=== PATIENT | male | born 1970 | race African-American/Black ===

== ENCOUNTER 2019-08-26 17:07 | Inpatient (IN) | payer OTHER, SELFPAY ==
[2019-08-26] VITALS (12 sets, daily range): BP systolic 93–113; BP diastolic 69–90; PULSE 96–140; RESP 16–24; TEMP 36.2–36.9; O2SAT 97–100; BMI 19.7
--- NOTE | ~2019-08-26 | CT_ITS ---
EXAMINATION: CT abdomen pelvis wo con DATE: 09/05/2019 13:51 INDICATION: Abdominal distention. TECHNIQUE: Computed tomography (CT) of the abdomen and pelvis was performed without intravenous contr ast. Automated exposure control and iterative reconstruction technique were employed. The dose-length product was 723.53 mGy-cm. COMPARISON: CT abdomen and pelvis 08/26/2019 FINDINGS: There are small pleural effusions. The visualized portions of the lung bases demonstrate de pendent atelectasis. The heart size is normal. There is a small pericardial effusion. The liver demon strates a nodular surface contour, consistent with cirrhosis. There is mild splenomegaly measuring 14 .0 cm, consistent with portal venous hypertension. There are gallstones in the gallbladder, which is normal in size. The pancreas, adrenal glands, and kidneys are normal. There are no dilated loops of b owel. The appendix is not visualized. There is a large volume of ascites. There are no pathologically enlarged lymph nodes. Body wall edema is noted. There is mild lumbar spondylosis. IMPRESSION: 1. Cirrhosis of the liver with portal venous hypertension. 2. Large volume of ascites. 3. Small pleural effusions. 4. Small pericardial effusion. 5. Cholelithiasis. Reviewed, dictated and finalized at location A.
--- NOTE | ~2019-08-26 | US_ITS ---
EXAMINATION: US paracentesis abd w/image DATE: 09/06/2019 12:20 INDICATION: Ascites. TECHNIQUE: The procedure and its risks, benefits, and alternatives were discussed with the patient. P otential risks discussed included bleeding and infection. The skin was prepped and draped in sterile fashion. 1% lidocaine was used for local anesthesia. Under ultrasound guidance, a 5 Fr catheter with trochar was advanced into the ascites in the left lower quadrant. Fluid was aspirated. The catheter w as removed, and a dressing was applied. There were no immediate complications. FINDINGS: Ultrasound images demonstrate ascites and the catheter within the fluid. IMPRESSION: 1. Successful ultrasound-guided paracentesis yielding 2900 mL of stephanie-colored fluid. Reviewed, dictated and finalized at location A. OR'S AIDE
--- NOTE | ~2019-08-26 | XR_ITS ---
EXAMINATION: XR chest 1V portable EXAM DATE: 08/26/2019 18:09 INDICATION: Weakness. No appetite. Symptoms one month. TECHNIQUE: Frontal portable AP chest x-ray. There is no prior study for comparison. FINDINGS: The lungs are clear. There are no pleural effusions. The cardiomediastinal silhouette is within normal limits. There is no pneumothorax suspected. The bones and soft tissues are unremarkab le. IMPRESSION: No acute cardiopulmonary findings. Reviewed, dictated and finalized at location A. CIATE SALES REPRESENTATIVE
--- NOTE | ~2019-08-26 | XR_ITS ---
EXAMINATION: XR chest 1V portable DATE: 09/03/2019 14:20 INDICATION: Leukocytosis. Unresponsive. TECHNIQUE: A single frontal view of the chest was obtained. COMPARISON: Chest single view 08/26/2019, CT abdomen and pelvis 08/26/2019 FINDINGS: Lung volumes are small. There are airspace opacities in the mid and lower lung zones, left worse than right. There is a small right pleural effusion. No pneumothorax. The heart size is normal. IMPRESSION: 1. Airspace opacities in the mid and lower lung zones, left worse than right, consistent with atelect asis versus pneumonia. 2. Small right pleural effusion. Reviewed, dictated and finalized at location A. OM FEED MILL OPERATOR IMPRESSION: 1. Airspace opacities in the mid and lower lung zones, left worse than right, c onsistent with atelectasis versus pneumonia. 2. Small right pleural effusion.
--- NOTE | ~2019-08-26 | CT_ITS ---
EXAMINATION: CT brain wo con EXAM DATE: 08/29/2019 12:46 INDICATION: Change in mental status. TECHNIQUE: Spiral CT of the head was performed without contrast. Axial, coronal and sagittal images were reviewed. The dose-length product (DLP) for this examination was 605.33 mGy-cm. The exposure w as tailored according to patient size, and iterative reconstruction (ASIR) was used as additional dos e reduction technique. There is no prior study for comparison. FINDINGS: There is mild cerebral atrophy. There is no acute intraparenchymal hemorrhage. No evidence of intraparenchymal brain mass lesion. No evidence of acute infarction. There is no mass effect or midline shift. The ventricles are normal in size. There are no extra-axial collections. There are no acute calvarial fractures. There is disconjugate gaze. Soft tissue is unremarkable. Right fronta l and frontal ethmoid completely opacified. IMPRESSION: 1. No acute intracranial findings. 2. Completely opacified right frontal and frontal ethmoid sinuses. Reviewed, dictated and finalized at location B. WAREHOUSE ANALYST
--- NOTE | ~2019-08-26 | XR_ITS ---
EXAMINATION: XR abdomen/kub 1V DATE: 09/02/2019 16:08 INDICATION: Abdominal distention. Hematuria. TECHNIQUE: A supine view of the abdomen on 2 radiographs was obtained. COMPARISON: CT abdomen and pelvis 08/26/2019 FINDINGS: There are multiple dilated loops of small bowel. There is regular fold thickening of the sm all bowel. The colon is normal in caliber. IMPRESSION: 1. Dilated small bowel, likely adynamic ileus. 2. Regular fold thickening of small bowel, consistent with interstitial edema. Reviewed, dictated and finalized at location A. ITURE MECHANIC
--- NOTE | ~2019-08-26 | CT_ITS ---
EXAMINATION: CT abdomen pelvis w con EXAM DATE: 08/26/2019 18:22 INDICATION: Hemoglobin anemia, generalized weakness. Loss of appetite. Jaundice. TECHNIQUE: Spiral CT of the abdomen and pelvis was performed following intravenous injection of 100 m L Omnipaque 350. Axial, coronal and sagittal images were reviewed. The dose-length product (DLP) fo r this examination was 244.86 mGy-cm. The exposure was tailored according to patient size (auto mA e xposure control), and iterative reconstruction (ASIR) was used as additional dose reduction technique . There is no prior study for comparison. FINDINGS: Heterogeneous liver with nodular contour, probably innumerable regenerating nodules, cirrho sis. Small amount of ascites and generalized mesenteric fat stranding, edema. The pancreas, adrenal g lands, spleen are unremarkable. There are gallstones within an otherwise unremarkable gallbladder. No evidence of obstructive biliary disease. Portal and splenic veins are patent. Kidneys enhance sy mmetrically. There is no hydronephrosis. The prostate is unremarkable. The bladder is unremarkabl e. Prominent urachal remnant, with nodule of peripherally calcified soft tissue density along most cepha lad portion measuring 1.0 x 1.2 x 2.3 cm; could be proteinaceous urachal cyst given the peripheral di stribution of calcification, but can't exclude urachal cancer given density. There is no retroperiton eal or pelvic lymphadenopathy. The appendix is not positively visualized. There is no pericecal inflammatory change to suggest appe ndicitis. The stomach and small bowel are unremarkable. There is expected amount of colonic stool. No free intraperitoneal gas. The heart is normal in size. There are no pericardial or pleural e ffusions. The lung bases are unremarkable. The bones are unremarkable. IMPRESSION: 1. Cirrhosis, ascites, mesenteric fat stranding. 2. Urachal remnant proteinaceous cyst or less likely soft tissue mass; consider 3-six-month follow-u p CT. 3. Cholelithiasis. Reviewed, dictated and finalized at location A. ATIENT PSYCHIATRIST IMPRESSION: 1. Cirrhosis, ascites, mesenteric fat stranding. 2. Urachal remnant proteinaceous cyst or less likely soft tissue mass; conside r 3-six-month follow-up CT. 3. Cholelithiasis.
--- NOTE | ~2019-08-26 | US_ITS ---
EXAMINATION: US paracentesis abd w/image DATE: 08/28/2019 11:11 INDICATION: Ascites. TECHNIQUE: The procedure and its risks, benefits, and alternatives were discussed with the patient. P otential risks discussed included bleeding and infection. The skin was prepped and draped in sterile fashion. 1% lidocaine was used for local anesthesia. Under ultrasound guidance, a 5 Fr catheter with trochar was advanced into the ascites in the right abdomen. Fluid was aspirated. The catheter was rem sigifredo, and a dressing was applied. There were no immediate complications. FINDINGS: Ultrasound images demonstrate ascites and the catheter within the fluid. IMPRESSION: 1. Successful ultrasound-guided paracentesis yielding 120 mL of stephanie-red fluid. Reviewed, dictated and finalized at location A. MOTIVE GLAZIER IMPRESSION: 1. Successful ultrasound-guided paracentesis yielding 120 mL of stephanie-red flui d.
--- NOTE | 2019-08-26 17:38 | ECG_ITS ---
Measurements Intervals [place] Rate: 128 P: 66 [place]: 131 QRS: 4 QRSD: 85 T: 55 QT: 299 QTc: 437 Interpretive Statements SINUS TACHYCARDIA BORDERLINE ST-T WAVE ABNORMALITY- INF/LAT LEADS ABNORMAL ECG Electronically Signed On 08-27-2019 6:48:53 THEATER COMPANY PRODUCER by Lamonte Gu D.O.
[2019-08-26 17:45] LABS: Basophils Absolute Auto 0.1 K/mm3 (0.0-0.1); Basophils Percent Auto 0.6 % (0.2-1.2); Eosinophils Absolute Auto 0.2 K/mm3 (0-0.3); Eosinophils Percent Auto 1.4 % (0-4.4); Immature Granulocyte Absolute 0.09 K/mm3 (0.00-0.031); Immature Granulocyte Percent A 0.8 % (0-0.5); Lymphocytes Absolute Auto 0.98 K/mm3 (0.9-3.2); Lymphocytes Percent Auto 8.3 % (18.3-44.2); Mean Corpuscular Hemoglobin 33.7 pg (26-34); Mean Corpuscular Volume 93.6 fl (80-100); Mean Platelet Volume 10.1 fl (7.4-10.4); Monocytes Absolute Auto 1.4 K/mm3 (0.1-0.6); Monocytes Percent Auto 11.7 % (2.6-8.5); Neutrophils Absolute Auto 9.2 K/mm3 (1.3-6.7); Neutrophils Percent Auto 77.2 % (45.5-73.1); Nucleated Red Blood Cells Perc 0.3 % (0.0-0.2); Platelet Count Result 186 k/mm3 (150-375); Red Blood Count 1.87 M/mm3 (4.6-6.20); Red Cell Distribution Width 15.9 % (11.5-14.5); White Blood Count 11.9 K/mm3 (4.5-10.0)
[2019-08-26 17:48] LABS: Hemoglobin 6.3 g/dL (14.0-18.0)
[2019-08-26 17:49] LABS: Hematocrit 17.5 % (42.0-52.0)
[2019-08-26 17:56] LABS: Alanine Aminotransferase 17 U/L (4-50); Albumin Level 3.5 g/dL (3.5-5.1); Alkaline Phosphatase 201 U/L (38-126); Aspartate Amino Transferase 96 U/L (17-59); Bilirubin,Total 6.5 mg/dL (0.2-1.3); Blood Urea Nitrogen 25 mg/dL (9-20); Calcium 8.8 mg/dL (8.4-10.2); Carbon Dioxide 27 mmol/L (22-30); Chloride 86 mmol/L (98-107); Estimated Glomerular Filt Rate > 60; Glucose 111 mg/dL (75-110); Lipase 1079 U/L (23-300); Potassium 3.2 mmol/L (3.4-5.0); Sodium 129 mmol/L (137-145)
[2019-08-26] MEDS: SODIUM CHLORIDE 0.9% IV 1,000 ML 999 ML IV CONT (17:56)
--- NOTE | 2019-08-26 18:02 | PC.NURSE ---
Patient unable to urinate at this time
[2019-08-26 18:28] LABS: Ammonia 25 umol/L (9-30)
[2019-08-26 18:28] LABS: Lactic Acid Reflex 2.6 mmol/L (0.7-2.1)
[2019-08-26 18:32] LABS: INR 1.2; Prothrombin Time 14.9 Seconds (11.1-14.7)
[2019-08-26 18:32] LABS: Ethanol < 10 mg/dL (<10)
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
[2019-08-26 18:33] LABS: Partial Thromboplastin Time 38.8 SECONDS (22.3-36.8)
[2019-08-26 18:34] LABS: Hepatitis B Surface Antigen Negative (Negative)
[2019-08-26 18:39] LABS: HAV RESULT Negative (Negative); Hepatitis B Core IgM Result Negative (Negative)
[2019-08-26 18:52] LABS: Hepatitis C Virus Antibody Reactive (Negative)
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
[2019-08-26 19:18] LABS: Add Urine Microscopic? YES; Appearance Urine Clear (Clear); Bilirubin Urine 2+ (Negative); Blood Urine Negative (Negative); Color Urine Amber (Yellow); Glucose Urine UA Negative (Negative); Ketones Urine Negative (Negative); Leukocyte Esterase Ur Trace LEU/UL (Negative); Mucus Urine Rare /lpf; Nitrate Urine Negative (Negative); Protein Urine Negative (Negative); RBC Urine 0-2 /hpf (0-2); Specific Grav Ur 1.041 (1.001-1.035); Squamous Epithelial Cell Urine Moderate /hpf (Few)
[2019-08-26 19:29] LABS: Amphetamine Screen Urine Negative (Negative); Barbiturate Screen Urine Negative (Negative); Benzodiazepines Screen Urine Negative (Negative); Cannabinoid Screen Urine Negative (Negative); Cocaine Screen Urine Negative (Negative); Methadone Screen Urine Negative (Negative); Opiate Screen Urine Negative (Negative); Phencyclidine Screen Urine Negative (Negative)
[2019-08-26 19:57] LABS: Immature Reticulocyte Fraction 6.4 % (3.0-15.9); Reticulocyte Hemoglobin Conten 30.7 pg (28.2-35.7); Reticulocyte Percent 0.51 % (0.7-4.3); Reticulocytes Absolute 0.01 B/L (32.2-175.7)
[2019-08-26] MEDS: PANTOPRAZOLE SODIUM IV 40 MG VIAL IV PUSH (19:58)
[2019-08-26 20:06] LABS: Iron 152 ug/dL (49-181)
--- NOTE | 2019-08-26 20:09 | PC.NURSE ---
call recieved from blood bank. states blood is ready. called imu- informed [address], states she will start the blood.
[2019-08-26 20:15] LABS: Percent Iron Saturation 74 % (20-50)
[2019-08-26 20:22] LABS: Lactic Acid Reflex 1.8 mmol/L (0.7-2.1)
--- NOTE | 2019-08-26 21:00 | PC.NURSE ---
This patient, Tonya Baumann, was admitted to IMU Room 212-01. Patient/family oriented to hospital policies and general routines including ID bracelet, bed and alarms, visiting hours, pain management, procedures, bathroom and other care routines, personal items, smoking policy, room service/diet, and visiting hours. Valuables list has been completed. Information on how to activate the Rapid Response Team has been discussed. Patient/Family are encouraged to report perceived risks to care and to ask questions if they do not understand what they are told or what they should do.
[2019-08-26 21:14] LABS: Folic Acid 5.3 ng/mL (2.76->20)
[2019-08-26 21:15] LABS: Reflex Lactic Acid Yes or No Add Lactic
[2019-08-26] MEDS: POTASSIUM CHLORIDE 20 MEQ PACKET (FOR LIQUID) PO (21:17)
[2019-08-26 21:33] LABS: Blood Urea Nitrogen 23 mg/dL (9-20); Calcium 8.2 mg/dL (8.4-10.2); Carbon Dioxide 25 mmol/L (22-30); Chloride 90 mmol/L (98-107); Estimated CRCL calculation 73 ml/min; Estimated Glomerular Filt Rate > 60; Glucose 101 mg/dL (75-110); Magnesium 1.3 mg/dL (1.6-2.3); Phosphorus 2.2 mg/dL (2.5-4.5); Potassium 3.8 mmol/L (3.4-5.0); Sodium 128 mmol/L (137-145)
[2019-08-26] MEDS: CHLORDIAZEPOXIDE 25 MG CAPSULE PO (21:55)
[2019-08-26] MEDS: SODIUM CHLORIDE 0.9% IV 250 ML 30 ML IV CONT (21:56)
[2019-08-27] VITALS (25 sets, daily range): BP systolic 78–112; BP diastolic 51–84; PULSE 92–117; RESP 16–20; TEMP 36.3–37.3; O2SAT 96–100
[2019-08-27] MEDS: MAGNESIUM SULF 2 GM/WATER 50ML 2 GM/50 ML BAG IVPB (00:43)
--- NOTE | 2019-08-27 03:16 | PC.NURSE ---
The 0310 blood vitals on 08/27/2019 were 30 minutes late because there was a code blue on the floor that I was involved in.
[2019-08-27 05:13] LABS: Hematocrit 25.3 % (42.0-52.0); Mean Corpuscular HGB Conc 35.6 g/dl (32-36); Mean Corpuscular Hemoglobin 32.6 pg (26-34); Mean Corpuscular Volume 91.7 fl (80-100); Mean Platelet Volume 10.2 fl (7.4-10.4); Platelet Count Result 152 k/mm3 (150-375); Red Blood Count 2.76 M/mm3 (4.6-6.20); Red Cell Distribution Width 15.3 % (11.5-14.5); White Blood Count 9.5 K/mm3 (4.5-10.0)
[2019-08-27 05:22] LABS: Alanine Aminotransferase 15 U/L (4-50); Albumin Level 3.1 g/dL (3.5-5.1); Alkaline Phosphatase 184 U/L (38-126); Aspartate Amino Transferase 95 U/L (17-59); Bilirubin,Total 6.1 mg/dL (0.2-1.3); Blood Urea Nitrogen 21 mg/dL (9-20); Calcium 8.2 mg/dL (8.4-10.2); Carbon Dioxide 23 mmol/L (22-30); Chloride 93 mmol/L (98-107); Estimated CRCL calculation 81 ml/min; Estimated Glomerular Filt Rate > 60; Glucose 85 mg/dL (75-110); Magnesium 2.3 mg/dL (1.6-2.3); Potassium 3.8 mmol/L (3.4-5.0); Sodium 130 mmol/L (137-145)
[2019-08-27] MEDS: CHLORDIAZEPOXIDE 25 MG CAPSULE PO ×3 (06:25→21:01)
[2019-08-27] MEDS: POTASSIUM PHOS,M-BASIC-D-BASIC 20 MMOL in SODIUM CHLORIDE 0.9% IV 250 ML 62.5 MMOL IVPB (07:52)
[2019-08-27] MEDS: FOLIC ACID 1 MG TABLET PO (08:01)
[2019-08-27] MEDS: THIAMINE HCL 100 MG TABLET PO (08:01)
[2019-08-27] MEDS: PANTOPRAZOLE SODIUM IV 40 MG VIAL IV PUSH ×2 (10:52→21:02)
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
--- NOTE | 2019-08-27 13:49 | WPDANESEPPF ---
Anes - Initial Pre Proc Eval Procedure: Operation Date: 08/27/19 14:30 Proposed Procedures p Esophagogastroduodenoscopy - Kimo Finn MD Date/Time: 08/27/19 13:49 Surgeon: Jesus Ellis MD Pre Op Diagnosis: Weakness. Patient Data Age: 48 Gender: M Height: 5 ft 7 in Weight: 60.8 kg Last Vital Signs Temp 99 F 08/27/19 12:00 Pulse 103 H 08/27/19 12:00 Resp 20 08/27/19 12:00 BP 96/68 L 08/27/19 12:00 Pulse Ox 100 08/27/19 12:00 Allergies Allergy/AdvReac Type Severity Reaction Status Date / Time No Known Allergies Allergy Verified 08/27/19 13:37 Home Medications Medication Instructions Recorded Confirmed Type No Home Medications 08/26/19 08/26/19 History Laboratory Tests 08/26/19 08/26/19 08/26/19 17:36 17:36 17:36 WBC RBC Hgb Hct MCV MCH MCHC RDW Plt Count MPV Immature Gran % (Auto) Neut % (Auto) Lymph % (Auto) Granite % (Auto) Eos % (Auto) Baso % (Auto) Lymph # (Auto) Granite # (Auto) Eos # (Auto) Baso # (Auto) Abs Immat Gran (auto) Absolute Neuts (auto) Absolute Nucleated RBC Nucleated RBC % Absolute Retic 0.01 B/L L B/L (32.2-175.7) Percent Retic 0.51 % L % (0.7-4.3) Immature Retic Fraction 6.4 % % (3.0-15.9) Retic Hgb Content 30.7 pg pg (28.2-35.7) PT 14.9 Seconds H Seconds (11.1-14.7) INR 1.2 APTT 38.8 SECONDS H SECONDS (22.3-36.8) Sodium Potassium Chloride Carbon Dioxide BUN Creatinine Estim Creat Clear Calc Estimated GFR Glucose Lactic Acid Calcium Phosphorus Magnesium Iron 152 ug/dL ug/dL (49-181) TIBC 205 ug/dL L ug/dL (265-497) % Saturation 74 % H % (20-50) Ferritin 846.00 ng/mL H ng/mL (17.9-464) Total Bilirubin AST ALT Alkaline Phosphatase Ammonia Total Protein Albumin Lipase Vitamin B12 Folate Urine Color Urine Appearance Urine pH Ur Specific [place] Urine Protein Urine Glucose (UA) Urine Ketones Ur Blood (Man) Urine Nitrate Urine Bilirubin Urine Urobilinogen Leukocyte Esterase Rfl Urine RBC Urine WBC Ur Squamous Epith Cells Urine Mucus Urine Opiates Screen Urine Methadone Screen Ur Barbiturates Screen Ur Phencyclidine Scrn Ur Amphetamine Screen U Benzodiazepines Scrn Urine Cocaine Screen U Cannabinoids Screen Ethyl Alcohol Hepatitis A IgM Ab Hep Bs Antigen Hep B Core IgM Ab Hepatitis C Ab Screen HCV RNA (PCR) IUs/ml HCV RNA PCR log IUs/ml Blood Type Antibody Screen Crossmatch 08/26/19 08/26/19 08/26/19 17:36 17:38 17:38 WBC 11.9 K/mm3 H K/mm3 (4.5-10.0) RBC 1.87 M/mm3 L M/mm3 (4.6-6.20) Hgb 6.3 g/dL L* g/dL (14.0-18.0) Hct 17.5 % L* % (42.0-52.0) MCV 93.6 fl fl (80-100) MCH 33.7 pg pg (26-34) MCHC 36.0 g/dl g/dl (32-36) RDW 15.9 % H % (11.5-14.5) Plt Count 186 k/mm3 k/mm3 (150-375) MPV 10.1 fl fl (7.4-10.4)
[2019-08-27] MEDS: LACTATED RINGERS 1,000 ML 150 ML IV CONT (14:20)
--- NOTE | 2019-08-27 15:55 | PM.IMPN ---
Progress Note: A&P Assessment and Plan (1) Profound anemia: Qualifiers: Anemia type: unspecified type Qualified Code(s): D64.9 - Anemia, unspecified Code(s): D64.9 - Anemia, unspecified Status: Acute Assessment and Plan: Anemia felt related to GI bleed from the Grade II varices and gastritis. Hgb 6.3 on admission but back up to 9 after transfusion of 2 units. Continue to monitor HH for stability. Continue PPI. (2) Cirrhosis: Code(s): K74.60 - Unspecified cirrhosis of liver Status: Acute Assessment and Plan: Patient with cirrhosis and varices as mentioned above. Octrotide to be started. Paracentesis ordered as well. (3) Electrolyte abnormality: Code(s): E87.8 - Other disorders of electrolyte and fluid balance, not elsewhere classified Status: Acute Assessment and Plan: Patient with hyponatremia that is slightly better today at 130. Potassium and Mag normal but Phos low at 2.0. Will repalce. Continue to monitor and replace as needed. (4) Elevated lactic acid level: Code(s): R79.89 - Other specified abnormal findings of blood chemistry Status: Acute Assessment and Plan: Lactic acid 2.6 but normal on repeat. Likely related to his cirrhosis. (5) Alcoholism: Code(s): F10.20 - Alcohol dependence, uncomplicated Status: Acute Assessment and Plan: Abstaining from alcohol use is a must. He has been educated about the need to quit drinking. Continue Librium, Thiamine and Folate. Continue CIWA protocol. Care coordination to provide information about AA. Subjective Date/time seen: 08/27/19 15:55 Interval history: 48yo male with alcoholic cirrhosis here weakness and found to be anemic. Patient feels better. No nausea or vomiting. No constipation or diarrhea. No headache. No CP or palpitations. Tolerating diet post EGD. has some mild epigastric pain after the procedure. Hasn't been out of bed yet. Exam Narrative: Exam Narrative: Gen - thin male in NARD Chest - distant but clear BS, nml RR CV - RRR S1/S2, Tele showing sinus arrhythmias Abd - soft, protubernt and dull to percussion, +BS Ext - no pedal edema, 2+ DP bilater Psych - alert and appropriate. Skin - dry; peeling and scale noted bilat feet Objective Data Vital Signs Vital Signs: Vital Signs - 24 hr 08/26/19 17:22 08/26/19 17:35 08/26/19 17:57 Temperature 98.5 F Pulse Rate 140 H 129 H 111 H Pulse Rate [Bilateral Monitor] Respiratory Rate 24 H 16 19 Blood Pressure 99/69 L 110/86 100/71 Pulse Oximetry 100 99 100 08/26/19 18:49 08/26/19 19:44 08/26/19 20:00 Temperature Pulse Rate 114 H 96 96 Pulse Rate [Bilateral Monitor] 103 H Respiratory Rate 21 H 20 Blood Pressure 113/83 110/90 Pulse Oximetry 99 99 08/26/19 20:04 08/26/19 20:15 08/26/19 22:00 Temperature 97.1 F L Pulse Rate 99 103 H 105 H Pulse Rate [Bilateral Monitor] Respiratory Rate 20 18 Blood Pressure 113/81 104/73 Pulse Oximetry 99 100 08/26/19 22:09 08/26/19 22:24 08/26/19 23:24 Temperature 98.1 F 97.8 F 98.3 F Pulse Rate 106 H 105 H 108 H Pulse Rate [Bilateral Monitor] Respiratory Rate 20 18 20 Blood Pressure 107/74 102/72 93/70 L Pulse Oximetry 97 99 100 08/27/19 00:00 08/27/19 00:22 08/27/19 00:24 Temperature 98.4 F 98.4 F Pulse Rate 116 H 106 H 106 H Pulse Rate [Bilateral Monitor] 106 H Respiratory Rate 18 18 Blood Pressure 94/68 L 94/68 L 94/68 L Pulse Oximetry 100 100 08/27/19 01:01 08/27/19 01:25 08/27/19 01:41 Temperature 98.4 F 99 F 98.4 F Pulse Rate 103 H 106 H 108 H Pulse Rate [Bilateral Monitor] Respiratory Rate 18 20 20 Blood Pressure 102/74 104/73 94/71 L Pulse Oximetry 100 100 100 08/27/19 02:00 08/27/19 03:10 08/27/19 03:37 Temperature 98.2 F 98.5 F Pulse Rate 105 H 108 H 108 H Pulse Rate [Bilateral Monitor] Respiratory Rate 18 20 Blood Pressure 102/84 95/73 L
[2019-08-28] VITALS (14 sets, daily range): BP systolic 103–125; BP diastolic 47–81; PULSE 94–124; RESP 16–24; TEMP 36.4–36.9; O2SAT 97–100
[2019-08-28] MEDS: LORAZEPAM INJ 2 MG/ML VIAL 1 MG IV PUSH ×4 (00:39→06:10)
[2019-08-28] MEDS: CHLORDIAZEPOXIDE 25 MG CAPSULE 100 MG PO (04:17)
[2019-08-28 06:25] LABS: Hematocrit 24.3 % (42.0-52.0); Hemoglobin 8.7 g/dL (14.0-18.0); Mean Corpuscular HGB Conc 35.8 g/dl (32-36); Mean Corpuscular Hemoglobin 32.3 pg (26-34); Mean Corpuscular Volume 90.3 fl (80-100); Mean Platelet Volume 10.6 fl (7.4-10.4); Platelet Count Result 150 k/mm3 (150-375); Red Blood Count 2.69 M/mm3 (4.6-6.20); Red Cell Distribution Width 16.1 % (11.5-14.5); White Blood Count 8.2 K/mm3 (4.5-10.0)
[2019-08-28 06:47] LABS: Albumin Level 2.9 g/dL (3.5-5.1); Blood Urea Nitrogen 14 mg/dL (9-20); Calcium 8.1 mg/dL (8.4-10.2); Carbon Dioxide 21 mmol/L (22-30); Chloride 93 mmol/L (98-107); Estimated CRCL calculation 116 ml/min; Estimated Glomerular Filt Rate > 60; Glucose 113 mg/dL (75-110); Magnesium 1.7 mg/dL (1.6-2.3); Phosphorus 2.6 mg/dL (2.5-4.5); Potassium 3.6 mmol/L (3.4-5.0); Sodium 128 mmol/L (137-145)
[2019-08-28] MEDS: PANTOPRAZOLE SODIUM IV 40 MG VIAL IV PUSH ×2 (09:11→20:56)
--- NOTE | 2019-08-28 10:32 | PM.IMPN ---
Progress Note: A&P Assessment and Plan (1) Profound anemia: Qualifiers: Anemia type: unspecified type Qualified Code(s): D64.9 - Anemia, unspecified Code(s): D64.9 - Anemia, unspecified Status: Acute Assessment and Plan: Anemia felt to be related to GI bleed from the Grade II varices and gastritisAs seen on EGD on 08/27/2019. Hgb 6.3 on admission but increased to 9.0 after transfusion of 2 units. Hemoglobin stable at 8.7 today. Will continue to monitor H&H. (2) Esophageal varices in cirrhosis: Code(s): K74.60 - Unspecified cirrhosis of liver; I85.10 - Secondary esophageal varices without bleeding Status: Acute Assessment and Plan: EGD on 08/27/2019 as noted above. Appreciate help from GI. Remains on octreotide. Will continue to monitor. (3) Cirrhosis: Qualifiers: Ascites presence: with ascites Hepatic cirrhosis type: alcoholic cirrhosis Qualified Code(s): K70.31 - Alcoholic cirrhosis of liver with ascites Code(s): K74.60 - Unspecified cirrhosis of liver Status: Acute Assessment and Plan: Result of alcoholism. GI following as noted above. Plan for paracentesis today. Will continue vitamin and folic acid. Resume Librium but at lower dose. Can hold Librium if too drowsy. Paracentesis with removal of only 120mL today. (4) Alcoholism: Code(s): F10.20 - Alcohol dependence, uncomplicated Status: Acute Assessment and Plan: Continue CIWA protocol. will rediscuss abstinence when more awake. Continue thiamine and folic acid as noted. Librium at lower dose. (5) Acute hypokalemia: Code(s): E87.6 - Hypokalemia Status: Acute Assessment and Plan: Resolved with potassium 3.6 today. Will follow. Telemetry reviewed on 08/28/2019 with mild sinus tachycardia. (6) Hyponatremia: Code(s): E87.1 - Hypo-osmolality and hyponatremia Status: Acute Assessment and Plan: Sodium stable at 128. Will follow. (7) Hypomagnesemia: Code(s): E83.42 - Hypomagnesemia Status: Acute Assessment and Plan: Magnesium 1.7 today. Will continue to follow and replace as needed. (8) Elevated lactic acid level: Code(s): R79.89 - Other specified abnormal findings of blood chemistry Status: Acute Assessment and Plan: Lactic acid 2.6 on admission but normal on repeat. Likely related to his cirrhosis. Will not continue to follow. (9) DVT prophylaxis: Code(s): Z29.9 - Encounter for prophylactic measures, unspecified Status: Acute Assessment and Plan: SCDs. Time Spent With Patient Time with patient: 15 - 25 minutes Subjective Date/time seen: 08/28/19 10:32 Interval history: Date of Service: 08/28/2019. Admitted with weakness and found to have anemia. Known alcoholic cirrhosis. Patient drowsy this morning but was given large dose Librium overnight due to increased CIWA. He will advised. Is able to answer my questions. Denies shortness of breath. No chest pain. No abdominal pain. Able to answer orientation questions appropriately this morning. Review of Systems Constitutional: Constitutional: Denies chills and Denies fever(s) ENT: Denies dysphagia Cardiovascular: Cardiovascular: Denies chest pain Respiratory: Respiratory: Denies dyspnea Gastrointestinal: Gastrointestinal: Denies abdominal pain, Denies nausea and Denies vomiting Musculoskeletal: Musculoskeletal: Reports no additional musculoskeletal complaints Integumentary/Breasts: Skin/Breast: Denies rash Neurologic: Denies headache(s) Psychiatric: Psychiatric: Denies confusion Exam Narrative: Exam Narrative: Drowsy but can be awakened and answer questions. Const: General: no acute distress HENMT: Other: unable to assess this morning Neck: Neck: supple Lymphatic: lymphadenopathy not noted Resp: Auscultation: no rales, no wheezes and diminished lung sounds Cardio:
[2019-08-28 13:26] LABS: Appearance Peritoneal Fluid Hazy (Clear); Color Peritoneal Fluid Other (Colorless); Nucleated Cells Peritoneal Flu 315 /uL (0-500); RBC Peritoneal Fluid 12833 /uL (0-100000); Source Peritoneal Fluid Peritoneal Fluid
[2019-08-28 13:50] LABS: Lymphocytes Peritoneal Fluid 21 %; Macrophages Peritoneal Fluid 8 %; Mesothelial Cells Peritoneal Fluid 3 %; Monocytes Peritoneal Fluid 56 %; Neutrophils Peritoneal Fluid 12 % (0-25)
[2019-08-28] MEDS: MICONAZOLE NITRATE 2% CREAM 30 GM TUBE 1 APPLIC TOPICAL ×2 (14:23→20:57)
--- NOTE | 2019-08-28 16:27 | WPDGIPROGNO ---
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 Complete another day of iv octreotide, also on iv antibiotics. Will need another EGD in ~ 6 weeks to reassess. (2) Ascites due to alcoholic cirrhosis: Code(s): K70.31 - Alcoholic cirrhosis of liver with ascites Status: Acute Assessment and Plan: no evidence of SBP. (3) Cirrhosis: Qualifiers: Ascites presence: with ascites Hepatic cirrhosis type: alcoholic cirrhosis Qualified Code(s): K70.31 - Alcoholic cirrhosis of liver with ascites Code(s): K74.60 - Unspecified cirrhosis of liver Status: Acute Assessment and Plan: poor prognosis. (4) Malnutrition: Qualifiers: Malnutrition type: protein-calorie malnutrition Protein-calorie malnutrition severity: moderate Qualified Code(s): E44.0 - Moderate protein-calorie malnutrition Code(s): E46 - Unspecified protein-calorie malnutrition Status: Acute Assessment and Plan: encourage to eat, he is at high risk of DT's, on CIWA protocol. (5) Acute GI bleeding: Code(s): K92.2 - Gastrointestinal hemorrhage, unspecified Status: Acute (6) Acute alcoholic hepatitis: Code(s): K70.10 - Alcoholic hepatitis without ascites Status: Acute (7) Alcoholism: Code(s): F10.20 - Alcohol dependence, uncomplicated Status: Acute Assessment and Plan: mvi, nutrition support, thiamine Subjective Date/time seen: 08/28/19 16:27 Interval history: had diagnostic paracentesis ~ 120ml removed, no report of bleeding and hb stable after blood transfusion. He is confused. Review of Systems Review of Systems: All systems reviewed & are unremarkable except as noted in HPI and below Exam Const: General: no acute distress Other: chronically ill appearing, thin, confused HENMT: General nose exam: Normal nares present Other: dry mucus membranes Eyes: EOM: EOMs intact bilaterally Neck: Neck: supple Resp: Auscultation: clear to auscultation bilaterally Cardio: Rate: regular rate GI: GI Palp: No Tenderness to palpation present (GI) Auscultation: normal bowel sounds Skin: General skin exam: pallor Neuro: Cognition (Neuro): abnormal cognition Other: confused Psych: Affect: Anxious affect present Objective Data Vital Signs Vital Signs: Vital Signs - 24 hr 08/27/19 18:00 08/27/19 20:00 08/27/19 20:17 Temperature 97.4 F L Pulse Rate 99 105 H 100 Pulse Rate [Bilateral Monitor] 100 Respiratory Rate 18 Blood Pressure 100/72 100/72 Pulse Oximetry 100 08/27/19 22:00 08/27/19 23:38 08/28/19 00:00 Temperature 99.2 F Pulse Rate 98 94 97 Pulse Rate [Bilateral Monitor] 94 Respiratory Rate 18 Blood Pressure 103/70 103/70 Pulse Oximetry 99 08/28/19 02:00 08/28/19 03:44 08/28/19 04:00 Temperature 98.5 F Pulse Rate 103 H 115 H 109 H Pulse Rate [Bilateral Monitor] 112 H Respiratory Rate 20 Blood Pressure 110/76 110/76 Pulse Oximetry 100 08/28/19 06:00 08/28/19 08:00 08/28/19 10:00 Temperature 98 F Pulse Rate 102 H 97 110 H Pulse Rate [Bilateral Monitor] 109 H Respiratory Rate 18 Blood Pressure 110/75 118/81 Pulse Oximetry 100 08/28/19 12:00 08/28/19 14:00 Temperature 97.5 F L Pulse Rate 101 H 102 H Pulse Rate [Bilateral Monitor] Respiratory Rate 16 Blood Pressure Pulse Oximetry Intake/Output Intake/Output: Intake & Output 08/25/19 08/26/19 08/27/19 08/28/19 23:59 23:59 23:59 23:59 Intake Total 1000 2515.8667 200 Output Total 650 220 Balance 1000 1865.8667 -20 Meds/Results Medications: Active Medications Generic Name Dose Route Start Last Admin Trade Name Freq PRN Reason Stop Dose Admin Chlordiazepoxide HCl 50 mg
[2019-08-29] VITALS (13 sets, daily range): BP systolic 89–122; BP diastolic 57–93; PULSE 100–118; RESP 18–20; TEMP 36.7–37.2; O2SAT 97–100
[2019-08-29] MEDS: CHLORDIAZEPOXIDE 25 MG CAPSULE 50 MG PO ×2 (01:12→21:29)
[2019-08-29 04:53] LABS: Hematocrit 24.6 % (42.0-52.0); Hemoglobin 8.9 g/dL (14.0-18.0); Mean Corpuscular HGB Conc 36.2 g/dl (32-36); Mean Corpuscular Hemoglobin 32.5 pg (26-34); Mean Corpuscular Volume 89.8 fl (80-100); Mean Platelet Volume 10.2 fl (7.4-10.4); Platelet Count Result 184 k/mm3 (150-375); Red Blood Count 2.74 M/mm3 (4.6-6.20); Red Cell Distribution Width 15.8 % (11.5-14.5); White Blood Count 8.6 K/mm3 (4.5-10.0)
[2019-08-29 05:08] LABS: Blood Urea Nitrogen 11 mg/dL (9-20); Calcium 8.3 mg/dL (8.4-10.2); Carbon Dioxide 25 mmol/L (22-30); Chloride 94 mmol/L (98-107); Estimated CRCL calculation 88 ml/min; Estimated Glomerular Filt Rate > 60; Glucose 99 mg/dL (75-110); Magnesium 1.4 mg/dL (1.6-2.3); Potassium 3.8 mmol/L (3.4-5.0); Sodium 131 mmol/L (137-145)
[2019-08-29] MEDS: THIAMINE HCL 100 MG TABLET PO (09:08)
[2019-08-29] MEDS: PANTOPRAZOLE SODIUM IV 40 MG VIAL IV PUSH ×2 (09:08→21:29)
[2019-08-29] MEDS: FOLIC ACID 1 MG TABLET PO (09:09)
[2019-08-29] MEDS: MICONAZOLE NITRATE 2% CREAM 30 GM TUBE 1 APPLIC TOPICAL ×2 (09:10→21:29)
[2019-08-29] MEDS: MAGNESIUM SULF 2 GM/WATER 50ML 2 GM/50 ML BAG IVPB (09:13)
--- NOTE | 2019-08-29 12:09 | PM.IMPN ---
Progress Note: A&P Assessment and Plan (1) Altered mental status: Qualifiers: Altered mental status type: unspecified Qualified Code(s): R41.82 - Altered mental status, unspecified Code(s): R41.82 - Altered mental status, unspecified Status: Acute Assessment and Plan: Remains drowsy today. Does Librium last dose given at 1:12 a.m. this morning. None since. Most likely changes are result alcohol will check CT brain with contrast to ensure no other issue. Patient is otherwise stable. Will transfer to medical floor. (2) Profound anemia: Qualifiers: Anemia type: unspecified type Qualified Code(s): D64.9 - Anemia, unspecified Code(s): D64.9 - Anemia, unspecified Status: Acute Assessment and Plan: Anemia felt to be related to GI bleed from the Grade II varices and gastritisAs seen on EGD on 08/27/2019. Hgb 6.3 on admission but increased to 9.0 after transfusion of 2 units. Hemoglobin stable at 8.9 today. Will continue to monitor H&H while here. (3) Esophageal varices in cirrhosis: Code(s): K74.60 - Unspecified cirrhosis of liver; I85.10 - Secondary esophageal varices without bleeding Status: Acute Assessment and Plan: EGD on 08/27/2019 as noted above. Appreciate help from GI. Octreotide to be discontinued after completing current bag. Continue IV Protonix. Will continue to monitor. (4) Cirrhosis: Qualifiers: Hepatic cirrhosis type: alcoholic cirrhosis Ascites presence: with ascites Qualified Code(s): K70.31 - Alcoholic cirrhosis of liver with ascites Code(s): K74.60 - Unspecified cirrhosis of liver Status: Acute Assessment and Plan: Result of alcoholism. GI following as noted above. Paracentesis with removal of only 120mL on 08/28/2019. Will continue vitamin and folic acid. Librium is scheduled but doses have been held due to drowsiness. Continue to monitor. (5) Alcoholism: Code(s): F10.20 - Alcohol dependence, uncomplicated Status: Acute Assessment and Plan: Continue CIWA protocol. Will rediscuss abstinence when more awake. Continue thiamine and folic acid as noted. Librium at lower dose when needed. (6) Hypomagnesemia: Code(s): E83.42 - Hypomagnesemia Status: Acute Assessment and Plan: Magnesium 1.4 today. IV replacement given. Will continue to follow and replace as needed. (7) Acute hypokalemia: Code(s): E87.6 - Hypokalemia Status: Acute Assessment and Plan: Resolved. Potassium stable at 3.8 today. Telemetry reviewed on 08/29/2019 with mild sinus tachycardia. Will continue to monitor potassium level and replace as needed. (8) Hyponatremia: Code(s): E87.1 - Hypo-osmolality and hyponatremia Status: Acute Assessment and Plan: Sodium slightly better at 1:31 a.m. today. Will continue to follow. (9) Elevated lactic acid level: Code(s): R79.89 - Other specified abnormal findings of blood chemistry Status: Acute Assessment and Plan: Lactic acid 2.6 on admission but normal on repeat. Likely related to his cirrhosis. Will not continue to follow. (10) DVT prophylaxis: Code(s): Z29.9 - Encounter for prophylactic measures, unspecified Status: Acute Assessment and Plan: SCDs. Time Spent With Patient Time with patient: 15 - 25 minutes Subjective Date/time seen: 08/29/19 12:09 Interval history: Date of Service: 08/29/2019. Admitted with weakness and found to have anemia. Known alcoholic cirrhosis. Patient drowsy again this morning. Will not say much to me. Nursing has noticed he favors staying in the position. He will eventually removed after I talked to him enough. He does mumble but cannot answer ROS questions. Review of Systems Review of Systems: ROS unobtainable: unobtainable due to mental status Exam Narrative: Exam Narrative: Difficult to arouse toda
--- NOTE | 2019-08-29 13:57 | PCOTNOTE ---
Attempted to see patient this pm, however unable to arouse for functional OT at this time. Pt attempted to wash face, however unable to stay awake.
--- NOTE | 2019-08-29 15:09 | WPDGIPROGNO ---
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 Ok to stop octreotide today, stable hb after blood transfusion. (2) Ascites due to alcoholic cirrhosis: Code(s): K70.31 - Alcoholic cirrhosis of liver with ascites Status: Acute Assessment and Plan: no evidence of SBP. (3) Cirrhosis: Qualifiers: Ascites presence: with ascites Hepatic cirrhosis type: alcoholic cirrhosis Qualified Code(s): K70.31 - Alcoholic cirrhosis of liver with ascites Code(s): K74.60 - Unspecified cirrhosis of liver Status: Acute Assessment and Plan: ETOH use, also pending HCV RNA. Poor prognosis. (4) Malnutrition: Qualifiers: Malnutrition type: protein-calorie malnutrition Protein-calorie malnutrition severity: moderate Qualified Code(s): E44.0 - Moderate protein-calorie malnutrition Code(s): E46 - Unspecified protein-calorie malnutrition Status: Acute Assessment and Plan: encourage to eat, he is at high risk of DT's, on CIWA protocol. (5) Acute GI bleeding: Code(s): K92.2 - Gastrointestinal hemorrhage, unspecified Status: Acute (6) Acute alcoholic hepatitis: Code(s): K70.10 - Alcoholic hepatitis without ascites Status: Acute Assessment and Plan: labs in am, supportive care. Poor prognosis. (7) Alcoholism: Code(s): F10.20 - Alcohol dependence, uncomplicated Status: Acute Assessment and Plan: mvi, nutrition support, thiamine (8) Encephalopathy: Code(s): G93.40 - Encephalopathy, unspecified Status: Acute Assessment and Plan: more sleepy, not eating. Could be from etoh abuse, his ammonia level was normal but he still could have liver encephalopathy- will give a trial of xifaxan. Continue with thiamine. Subjective Date/time seen: 08/29/19 15:09 Interval history: still drowsy, CT head ordered and now major findings. He is hardly eating, no GIB, stable hb Review of Systems Review of Systems: ROS unobtainable: unobtainable due to mental status Exam Const: General: no acute distress Other: chronically ill appearing, thin, sleeping and drowsy HENMT: General nose exam: Normal nares present Other: dry mucus membranes Eyes: EOM: EOMs intact bilaterally Neck: Neck: supple Resp: Auscultation: clear to auscultation bilaterally Cardio: Rate: regular rate GI: GI Palp: No Tenderness to palpation present (GI) Auscultation: normal bowel sounds Skin: General skin exam: no erythema and pallor Neuro: Cognition (Neuro): abnormal cognition Other: confused Extrem: General: normal to inspection Psych: Other: sleepy Objective Data Vital Signs Vital Signs: Vital Signs - 24 hr 08/28/19 16:00 08/28/19 18:00 08/28/19 20:00 Temperature 98.1 F 98.0 F Pulse Rate 119 H 122 H 124 H Pulse Rate [Bilateral Monitor] 124 H Respiratory Rate 24 H 18 Blood Pressure 114/73 125/47 L Pulse Oximetry 100 97 08/28/19 22:00 08/28/19 23:47 08/29/19 00:00 Temperature 98.2 F Pulse Rate 114 H 114 H 118 H Pulse Rate [Bilateral Monitor] 118 H Respiratory Rate 18 18 Blood Pressure 111/74 111/74 Pulse Oximetry 99 99 08/29/19 01:51 08/29/19 03:39 08/29/19 03:57 Temperature 98.1 F Pulse Rate 116 H 111 H 112 H Pulse Rate [Bilateral Monitor] 112 H Respiratory Rate 18 18 Blood Pressure 107/73 107/73 Pulse Oximetry 100 100 08/29/19 06:00 08/29/19 08:00 08/29/19 08:30 Temperature 98.1 F Pulse Rate 104 H 114 H 103 H Pulse Rate [Bilateral Monitor] Respiratory Rate 20 Blood Pressure 122/93 H Pulse Oximetry 100 08/29/19 10:00 08/29/19 12:00 Temperature 98.2 F Pulse Rate 117 H 105 H Pulse Rate [Bilateral Monitor] Respiratory Rate 18 Blood Pressur
[2019-08-29] MEDS: SODIUM CHLORIDE 0.9% IV 1,000 ML 999 ML IV CONT (17:19)
[2019-08-29] MEDS: rifAXIMin 550 MG TABLET PO (21:29)
[2019-08-30 03:54] VITALS: BP 102/70; PULSE 112
[2019-08-30 04:14] VITALS: BP 102/70; PULSE 112; RESP 18; TEMP 37.6; O2SAT 97
[2019-08-30 05:01] LABS: Hematocrit 22.6 % (42.0-52.0); Mean Corpuscular HGB Conc 35.4 g/dl (32-36); Mean Corpuscular Volume 90.4 fl (80-100); Mean Platelet Volume 9.9 fl (7.4-10.4); Platelet Count Result 180 k/mm3 (150-375); Red Cell Distribution Width 15.9 % (11.5-14.5); White Blood Count 7.7 K/mm3 (4.5-10.0)
[2019-08-30 05:21] LABS: Alanine Aminotransferase 18 U/L (4-50); Albumin Level 2.5 g/dL (3.5-5.1); Alkaline Phosphatase 144 U/L (38-126); Aspartate Amino Transferase 93 U/L (17-59); Bilirubin,Total 5.5 mg/dL (0.2-1.3); Blood Urea Nitrogen 9 mg/dL (9-20); Carbon Dioxide 24 mmol/L (22-30); Chloride 94 mmol/L (98-107); Estimated CRCL calculation 100 ml/min; Estimated Glomerular Filt Rate > 60; Glucose 101 mg/dL (75-110); Magnesium 1.5 mg/dL (1.6-2.3); Potassium 3.4 mmol/L (3.4-5.0); Sodium 129 mmol/L (137-145)
[2019-08-30] MEDS: MAGNESIUM SULF 4 GM/WATER100ML 4 GM/100 ML BAG IVPB (07:52)
[2019-08-30] MEDS: PANTOPRAZOLE SODIUM IV 40 MG VIAL IV PUSH ×2 (07:52→21:27)
[2019-08-30] MEDS: THIAMINE HCL 200 MG/2 ML VIAL 100 MG IV PUSH (07:52)
[2019-08-30] MEDS: MICONAZOLE NITRATE 2% CREAM 30 GM TUBE 1 APPLIC TOPICAL ×2 (07:53→21:27)
[2019-08-30 08:00] VITALS: BP 93/59; PULSE 105; RESP 16; TEMP 37.4; O2SAT 100
[2019-08-30] MEDS: FOLIC ACID 1 MG TABLET PO (09:58)
[2019-08-30] MEDS: rifAXIMin 550 MG TABLET PO ×2 (09:58→21:27)
--- NOTE | 2019-08-30 12:51 | PCOTNOTE ---
The patient treatment was not able to be completed on [08/30/18]. Will plan to continue treatment per plan of care.
--- NOTE | 2019-08-30 13:09 | PM.IMPN ---
Progress Note: A&P Assessment and Plan (1) Altered mental status: Qualifiers: Altered mental status type: somnolence Qualified Code(s): R40.0 - Somnolence Code(s): R41.82 - Altered mental status, unspecified Status: Acute Assessment and Plan: More responsive today. Only receiving occasional Librium as needed. CT brain 08/29/2019 with no acute changes. Most likely result of his alcoholism. Encourage patient to move more. Continue PT/OT. Will continue to monitor. (2) Profound anemia: Qualifiers: Anemia type: unspecified type Qualified Code(s): D64.9 - Anemia, unspecified Code(s): D64.9 - Anemia, unspecified Status: Acute Assessment and Plan: Anemia felt to be related to GI bleed from the Grade II varices and gastritisAs seen on EGD on 08/27/2019. Hgb 6.3 on admission but increased to 9.0 after transfusion of 2 units. Hemoglobin lower today at 8.0. Will not transfuse today. Will to monitor. Transfuse as needed. (3) Esophageal varices in cirrhosis: Code(s): K74.60 - Unspecified cirrhosis of liver; I85.10 - Secondary esophageal varices without bleeding Status: Acute Assessment and Plan: EGD on 08/27/2019 as noted above. Appreciate help from GI. Octreotide discontinued on 08/29/2019. Will continue IV Protonix. Will continue to monitor. Currently remains on full liquid diet. Will add Ensure compact to help with intake. Remains on IV ceftriaxone started by GI on 08/27/2019. (4) Cirrhosis: Qualifiers: Hepatic cirrhosis type: alcoholic cirrhosis Ascites presence: with ascites Qualified Code(s): K70.31 - Alcoholic cirrhosis of liver with ascites Code(s): K74.60 - Unspecified cirrhosis of liver Status: Acute Assessment and Plan: Result of alcoholism. GI following as noted above. Paracentesis with removal of only 120mL on 08/28/2019. Will continue vitamin and folic acid. Librium only as needed at this point. (5) Alcoholism: Code(s): F10.20 - Alcohol dependence, uncomplicated Status: Acute Assessment and Plan: Will discontinue CIWA protocol as levels have not been elevated recently. Librium only as needed at this point. Continue thiamine and folic acid.. Will rediscuss abstinence when more awake. (6) Hypomagnesemia: Code(s): E83.42 - Hypomagnesemia Status: Acute Assessment and Plan: Magnesium still low at 1.5 today. Additional IV replacement given today. Will continue to follow and replace as needed. (7) Acute hypokalemia: Code(s): E87.6 - Hypokalemia Status: Acute Assessment and Plan: Potassium down to 3.4 today. Will give IV replacement as oral intake good. Will continue to monitor. (8) Hyponatremia: Code(s): E87.1 - Hypo-osmolality and hyponatremia Status: Acute Assessment and Plan: Sodium 129 today. Staying fairly stable. Will continue to follow. (9) Poor dentition: Code(s): K08.9 - Disorder of teeth and supporting structures, unspecified Status: Acute Assessment and Plan: Noted to have from molars patient having very poor dentition. Will need appropriate dental care after discharge. (10) Elevated lactic acid level: Code(s): R79.89 - Other specified abnormal findings of blood chemistry Status: Acute Assessment and Plan: Lactic acid 2.6 on admission but normal on repeat. Likely related to his cirrhosis. Will not continue to follow. (11) DVT prophylaxis: Code(s): Z29.9 - Encounter for prophylactic measures, unspecified Status: Acute Assessment and Plan: SCDs. Time Spent With Patient Time with patient: 15 - 25 minutes Subjective Date/time seen: 08/30/19 13:09 Interval history: Date of Service: 08/30/2019. Admitted with weakness and found to have anemia. Known alcoholic cirrhosis. Still drowsy but more responsive today. Attempts to open h
[2019-08-30 16:00] VITALS: BP 88/60; PULSE 100; RESP 20; TEMP 36.6; O2SAT 100
--- NOTE | 2019-08-30 16:21 | WPDGIPROGNO ---
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 s/p IV octreotide, stable hb after blood transfusion. on iv antibiotics but can switch to oral, give total of 7 days (sbp prophylaxis in setting of gib) (2) Ascites due to alcoholic cirrhosis: Code(s): K70.31 - Alcoholic cirrhosis of liver with ascites Status: Acute Assessment and Plan: no evidence of SBP. 2g na diet still poor appetite, encourage to eat and also offer ensure/boost (3) Cirrhosis: Qualifiers: Ascites presence: with ascites Hepatic cirrhosis type: alcoholic cirrhosis Qualified Code(s): K70.31 - Alcoholic cirrhosis of liver with ascites Code(s): K74.60 - Unspecified cirrhosis of liver Status: Acute Assessment and Plan: ETOH use, also pending HCV RNA. Poor prognosis. (4) Malnutrition: Qualifiers: Malnutrition type: protein-calorie malnutrition Protein-calorie malnutrition severity: moderate Qualified Code(s): E44.0 - Moderate protein-calorie malnutrition Code(s): E46 - Unspecified protein-calorie malnutrition Status: Acute Assessment and Plan: encourage to eat. (5) Acute GI bleeding: Code(s): K92.2 - Gastrointestinal hemorrhage, unspecified Status: Acute (6) Acute alcoholic hepatitis: Code(s): K70.10 - Alcoholic hepatitis without ascites Status: Acute Assessment and Plan: supportive care. Poor prognosis. (7) Alcoholism: Code(s): F10.20 - Alcohol dependence, uncomplicated Status: Acute Assessment and Plan: mvi, nutrition support, thiamine (8) Encephalopathy: Code(s): G93.40 - Encephalopathy, unspecified Status: Acute Assessment and Plan: supportive care, on mvi/thiamine/xifaxan. Subjective Date/time seen: 08/30/19 16:21 Interval history: today is more alert, reducing librium to only as needed Review of Systems Review of Systems: All systems reviewed & are unremarkable except as noted in HPI and below Exam Const: General: no acute distress Other: chronically ill appearing, thin, interacting more today HENMT: General nose exam: Normal nares present Other: dry mucus membranes Eyes: EOM: EOMs intact bilaterally Neck: Neck: supple Resp: Auscultation: clear to auscultation bilaterally Cardio: Rate: regular rate GI: GI Palp: No Tenderness to palpation present (GI) Auscultation: normal bowel sounds Skin: General skin exam: no erythema and pallor Neuro: Other: still slow to respond but better than yesterday Extrem: General: normal to inspection Psych: Other: sleepy Objective Data Vital Signs Vital Signs: Vital Signs - 24 hr 08/29/19 19:41 08/29/19 20:00 08/29/19 23:54 Temperature 98.9 F Pulse Rate 104 H 104 H Pulse Rate [Bilateral Monitor] 112 H 112 H Respiratory Rate 20 20 Blood Pressure 98/57 L 98/57 L 98/57 L Pulse Oximetry 100 100 08/30/19 03:54 08/30/19 04:14 08/30/19 08:00 Temperature 99.6 F 99.3 F Pulse Rate 112 H 105 H Pulse Rate [Bilateral Monitor] 112 H Respiratory Rate 18 16 Blood Pressure 102/70 102/70 93/59 L Pulse Oximetry 97 100 Intake/Output Intake/Output: Intake & Output 08/27/19 08/28/19 08/29/19 08/30/19 23:59 23:59 23:59 23:59 Intake Total 2515.8667 375 1620 270 Output Total 650 220 250 Balance 1865.8667 155 1620 20 Meds/Results Medications: Active Medications Generic Name Dose Route Start Last Admin Trade Name Freq PRN Reason Stop Dose Admin Chlordiazepoxide HCl 50 mg 08/29/19 16:56 08/29/19 21:29 Librium Po PO 50 mg Q8HR PRN Administration Agitation Folic Acid 1 mg 08/27/19 09:00 08/30/19 09:58 Folic Acid PO 1 mg DAILY BHANU Administration Ceftriaxone Sodium/Dextr
[2019-08-30] MEDS: SODIUM CHLORIDE 0.9% IV 1,000 ML 75 ML IV CONT (17:02)
[2019-08-30 17:59] LABS: Add Urine Microscopic? YES; Amorphous Sediment Urine Few; Appearance Urine Cloudy (Clear); Bacteria Urine 2+ /hpf; Bilirubin Urine 2+ (Negative); Blood Urine 2+ (Negative); Color Urine Amber (Yellow); Glucose Urine UA Negative (Negative); Hyaline Casts Urine 30-49 /lpf; Ketones Urine Negative (Negative); Leukocyte Esterase Ur Negative LEU/UL (NEGATIVE); Mucus Urine Few /lpf; Nitrate Urine Negative (Negative); Protein Urine 2+ mg/dL (Negative); Specific Grav Ur 1.019 (1.001-1.035); Squamous Epithelial Cell Urine Many /hpf (Few)
[2019-08-30] MEDS: CHLORDIAZEPOXIDE 25 MG CAPSULE 50 MG PO (19:12)
[2019-08-30 20:00] VITALS: BP 92/65; PULSE 105; PULSE 110; RESP 16; TEMP 36.4; O2SAT 100
[2019-08-30 22:50] VITALS: BP 92/63; PULSE 101; RESP 16; TEMP 37.1; O2SAT 100
--- NOTE | 2019-08-30 23:01 | PC.NURSE ---
This patient, Tonya Baumann, was transferred to [[id number] ] on 08/30/19 at 2301. Personal belongings sent with patient. Belongings list checked and signed with receiving [ ]. Report given to [Kyra tee ]. Appropriate documentation sent with patient.
--- NOTE | 2019-08-31 02:54 | PC.NURSE ---
This patient, Tonya Baumann, was received from IMU on 08/31/19 at 2305. Personal belongings list checked and signed. Patient/family oriented to unit policies and routines
[2019-08-31] MEDS: SODIUM CHLORIDE 0.9% IV 1,000 ML 75 ML IV CONT ×2 (05:39→20:14)
[2019-08-31 06:00] VITALS: BP 99/69; PULSE 102; RESP 16; TEMP 36.8; O2SAT 100
[2019-08-31 06:05] LABS: Hematocrit 24.7 % (42.0-52.0); Hemoglobin 8.5 g/dL (14.0-18.0); Mean Corpuscular HGB Conc 34.4 g/dl (32-36); Mean Corpuscular Hemoglobin 32.1 pg (26-34); Mean Corpuscular Volume 93.2 fl (80-100); Mean Platelet Volume 10.3 fl (7.4-10.4); Platelet Count Result 211 k/mm3 (150-375); Red Blood Count 2.65 M/mm3 (4.6-6.20); Red Cell Distribution Width 17.3 % (11.5-14.5); White Blood Count 10.4 K/mm3 (4.5-10.0)
[2019-08-31 08:11] LABS: Blood Urea Nitrogen 10 mg/dL (9-20); Calcium 7.9 mg/dL (8.4-10.2); Carbon Dioxide 22 mmol/L (22-30); Chloride 98 mmol/L (98-107); Estimated CRCL calculation 88 ml/min; Estimated Glomerular Filt Rate > 60; Glucose 94 mg/dL (75-110); Magnesium 1.8 mg/dL (1.6-2.3); Potassium 4.5 mmol/L (3.4-5.0); Sodium 129 mmol/L (137-145)
[2019-08-31] MEDS: MICONAZOLE NITRATE 2% CREAM 30 GM TUBE 1 APPLIC TOPICAL ×2 (09:29→20:14)
[2019-08-31] MEDS: THIAMINE HCL 200 MG/2 ML VIAL 100 MG IV PUSH (09:29)
[2019-08-31] MEDS: PANTOPRAZOLE SODIUM IV 40 MG VIAL IV PUSH ×2 (09:30→20:14)
[2019-08-31] MEDS: CHLORDIAZEPOXIDE 25 MG CAPSULE 50 MG PO (09:31)
[2019-08-31] MEDS: rifAXIMin 550 MG TABLET PO ×2 (09:31→20:14)
[2019-08-31] MEDS: FOLIC ACID 1 MG TABLET PO (09:31)
[2019-08-31] MEDS: MAGNESIUM SULF 2 GM/WATER 50ML 2 GM/50 ML BAG IVPB (09:38)
[2019-08-31 15:00] VITALS: BP 98/72; PULSE 99; RESP 16; TEMP 36.2; O2SAT 100
--- NOTE | 2019-08-31 16:13 | PM.IMPN ---
Progress Note: A&P Assessment and Plan (1) Altered mental status: Qualifiers: Altered mental status type: somnolence Qualified Code(s): R40.0 - Somnolence Code(s): R41.82 - Altered mental status, unspecified Status: Acute Assessment and Plan: Even more responsive today. Has only had a few doses of Librium. Will decrease mg dosage of Librium and leave as needed.More responsive today. CT brain 08/29/2019 with no acute changes. Most likely result of his alcoholism. Will leave IV fluids in place. Encourage patient to move more. Continue PT/OT. Will continue to monitor. (2) Profound anemia: Qualifiers: Anemia type: unspecified type Qualified Code(s): D64.9 - Anemia, unspecified Code(s): D64.9 - Anemia, unspecified Status: Acute Assessment and Plan: Appreciate help from GI. Anemia felt to be related to GI bleed from the Grade II varices and gastritisAs seen on EGD on 08/27/2019. Hgb 6.3 on admission but increased to 9.0 after transfusion of 2 units. Hemoglobin Stable at 8.5 today. Will continue to monitor H&H and only transfuse as needed. (3) Esophageal varices in cirrhosis: Code(s): K74.60 - Unspecified cirrhosis of liver; I85.10 - Secondary esophageal varices without bleeding Status: Acute Assessment and Plan: EGD on 08/27/2019 as noted above. Octreotide discontinued on 08/29/2019. Will continue IV Protonix. Will continue to monitor. Currently remains on full liquid diet. Continue Ensure compact to help with intake. Remains on IV ceftriaxone started by GI on 08/27/2019. (4) Cirrhosis: Qualifiers: Ascites presence: with ascites Hepatic cirrhosis type: alcoholic cirrhosis Qualified Code(s): K70.31 - Alcoholic cirrhosis of liver with ascites Code(s): K74.60 - Unspecified cirrhosis of liver Status: Acute Assessment and Plan: Result of alcoholism. GI following as noted above. Paracentesis with removal of only 120mL on 08/28/2019. Will continue vitamin and folic acid. Librium only as needed at this point. (5) Urinary retention: Code(s): R33.9 - Retention of urine, unspecified Status: Acute Assessment and Plan: Jaramillo catheter placed on 08/30/2019 due to urinary retention. Urine does appear to be clearing. UA suspicious. Urine culture is pending. Already on IV ceftriaxone. Will adjust antibiotics if needed. (6) Alcoholism: Code(s): F10.20 - Alcohol dependence, uncomplicated Status: Acute Assessment and Plan: Will discontinue CIWA protocol as levels have not been elevated recently. Librium only as needed at this point. Continue thiamine and folic acid. Will rediscuss abstinence if/when able. (7) Hypomagnesemia: Code(s): E83.42 - Hypomagnesemia Status: Acute Assessment and Plan: Magnesium 1.8 today. Will continue to follow and replace as needed. (8) Acute hypokalemia: Code(s): E87.6 - Hypokalemia Status: Acute Assessment and Plan: Potassium 4.5 today. Will continue to monitor. (9) Hyponatremia: Code(s): E87.1 - Hypo-osmolality and hyponatremia Status: Acute Assessment and Plan: Sodium 129 today and stable. Will continue to follow. (10) Poor dentition: Code(s): K08.9 - Disorder of teeth and supporting structures, unspecified Status: Acute Assessment and Plan: Noted to have from molars patient having very poor dentition. Will need appropriate dental care after discharge. (11) Elevated lactic acid level: Code(s): R79.89 - Other specified abnormal findings of blood chemistry Status: Acute Assessment and Plan: Lactic acid 2.6 on admission but normal on repeat. Likely related to his cirrhosis. Will not continue to follow. (12) DVT prophylaxis: Code(s): Z29.9 - Encounter for prophylactic measures, unspecified Status: Acute Assessmen
[2019-08-31 16:58] LABS: Hepatitis C RNA, Quant PCR <15 IU/mL
[2019-08-31] MEDS: ACETAMINOPHEN 325 MG TABLET 650 MG PO (18:14)
[2019-08-31 22:00] VITALS: BP 95/63; PULSE 102; RESP 18; TEMP 36.3; O2SAT 100
[2019-09-01 06:00] VITALS: BP 103/76; PULSE 98; RESP 16; TEMP 36.5; O2SAT 100
[2019-09-01 06:34] LABS: Hematocrit 25.3 % (42.0-52.0); Hemoglobin 8.6 g/dL (14.0-18.0); Mean Corpuscular Hemoglobin 32.3 pg (26-34); Mean Corpuscular Volume 95.1 fl (80-100); Mean Platelet Volume 10.2 fl (7.4-10.4); Platelet Count Result 216 k/mm3 (150-375); Red Blood Count 2.66 M/mm3 (4.6-6.20); Red Cell Distribution Width 17.6 % (11.5-14.5); White Blood Count 10.8 K/mm3 (4.5-10.0)
[2019-09-01 06:43] LABS: Blood Urea Nitrogen 12 mg/dL (9-20); Carbon Dioxide 20 mmol/L (22-30); Chloride 96 mmol/L (98-107); Estimated CRCL calculation 65 ml/min; Estimated Glomerular Filt Rate > 60; Glucose 99 mg/dL (75-110); Magnesium 1.9 mg/dL (1.6-2.3); Potassium 4.3 mmol/L (3.4-5.0); Sodium 127 mmol/L (137-145)
[2019-09-01] MEDS: SODIUM CHLORIDE 0.9% IV 1,000 ML 75 ML IV CONT ×2 (10:02→23:59)
[2019-09-01] MEDS: MICONAZOLE NITRATE 2% CREAM 30 GM TUBE 1 APPLIC TOPICAL ×2 (10:03→20:58)
[2019-09-01] MEDS: FOLIC ACID 1 MG TABLET PO (10:04)
[2019-09-01] MEDS: rifAXIMin 550 MG TABLET PO ×2 (10:04→20:58)
[2019-09-01] MEDS: PANTOPRAZOLE SODIUM IV 40 MG VIAL IV PUSH ×2 (10:04→20:58)
[2019-09-01] MEDS: THIAMINE HCL 200 MG/2 ML VIAL 100 MG IV PUSH (10:04)
[2019-09-01 14:00] VITALS: BP 105/72; PULSE 94; RESP 16; TEMP 37.2; O2SAT 100
--- NOTE | 2019-09-01 14:06 | PM.IMPN ---
Progress Note: A&P Assessment and Plan (1) Altered mental status: Qualifiers: Altered mental status type: somnolence Qualified Code(s): R40.0 - Somnolence Code(s): R41.82 - Altered mental status, unspecified Status: Acute Assessment and Plan: Most likely result of alcoholism. No recent doses of Librium or IV Ativan. CT brain 08/29/2019 with no acute changes. Continue IV fluids. Continue PT / OT. Will monitor. (2) Profound anemia: Qualifiers: Anemia type: unspecified type Qualified Code(s): D64.9 - Anemia, unspecified Code(s): D64.9 - Anemia, unspecified Status: Acute Assessment and Plan: Appreciate help from GI. Anemia felt to be related to GI bleed from the Grade II varices and gastritisAs seen on EGD on 08/27/2019. Hgb 6.3 on admission but increased to 9.0 after transfusion of 2 units. Hemoglobin remains stable at 8.6 today. Will continue to monitor H&H and only transfuse as needed. (3) Esophageal varices in cirrhosis: Code(s): K74.60 - Unspecified cirrhosis of liver; I85.10 - Secondary esophageal varices without bleeding Status: Acute Assessment and Plan: EGD on 08/27/2019 as noted above. Octreotide discontinued on 08/29/2019. Will continue IV Protonix. Will continue to monitor. Currently remains on full liquid diet. Continue Ensure compact to help with intake. Intake known to be poor at home as reported to nursing by family. Remains on IV ceftriaxone started by GI on 08/27/2019. (4) Cirrhosis: Qualifiers: Ascites presence: with ascites Hepatic cirrhosis type: alcoholic cirrhosis Qualified Code(s): K70.31 - Alcoholic cirrhosis of liver with ascites Code(s): K74.60 - Unspecified cirrhosis of liver Status: Acute Assessment and Plan: Result of alcoholism. GI following as noted above. Paracentesis with removal of only 120mL on 08/28/2019. Will continue vitamin and folic acid. Librium only as needed at this point. (5) Urinary retention: Code(s): R33.9 - Retention of urine, unspecified Status: Acute Assessment and Plan: Jaramillo catheter placed on 08/30/2019 due to urinary retention. UA suspicious but urine culture is negative. Will eventually need voiding trial. (6) Alcoholism: Code(s): F10.20 - Alcohol dependence, uncomplicated Status: Acute Assessment and Plan: Will discontinue CIWA protocol as levels have not been elevated recently. Librium only as needed at this point. Continue thiamine and folic acid. Will rediscuss abstinence if/when able. (7) Hypomagnesemia: Code(s): E83.42 - Hypomagnesemia Status: Acute Assessment and Plan: Magnesium 1.9 today. Will continue to follow and replace as needed. (8) Acute hypokalemia: Code(s): E87.6 - Hypokalemia Status: Acute Assessment and Plan: Potassium 4.3 today. Will continue to monitor. (9) Hyponatremia: Code(s): E87.1 - Hypo-osmolality and hyponatremia Status: Acute Assessment and Plan: Sodium slightly lower at 127 today. Will follow. (10) Poor dentition: Code(s): K08.9 - Disorder of teeth and supporting structures, unspecified Status: Acute Assessment and Plan: Noted to have from molars patient having very poor dentition. Will need appropriate dental care after discharge. (11) Elevated lactic acid level: Code(s): R79.89 - Other specified abnormal findings of blood chemistry Status: Acute Assessment and Plan: Lactic acid 2.6 on admission but normal on repeat. Likely related to his cirrhosis. Will not continue to follow. (12) DVT prophylaxis: Code(s): Z29.9 - Encounter for prophylactic measures, unspecified Status: Acute Assessment and Plan: SCDs. Time Spent With Patient Time with patient: 15 - 25 minutes Subjective Date/time seen: 09/01/19 14:06 Interval history: Date o
--- NOTE | 2019-09-01 15:17 | PCOTNOTE ---
The patient treatment was not able to be completed on 09/01/19 due to time constraints. Will plan to continue treatment per plan of care.
[2019-09-01 22:00] VITALS: BP 95/71; PULSE 102; RESP 18; TEMP 37.2; O2SAT 100
[2019-09-01] MEDS: CHLORDIAZEPOXIDE 25 MG CAPSULE PO (23:58)
[2019-09-02 06:00] VITALS: BP 127/89; PULSE 115; RESP 16; TEMP 37.1; O2SAT 100
[2019-09-02 06:24] LABS: Blood Urea Nitrogen 11 mg/dL (9-20); Calcium 8.1 mg/dL (8.4-10.2); Carbon Dioxide 20 mmol/L (22-30); Chloride 98 mmol/L (98-107); Estimated CRCL calculation 88 ml/min; Estimated Glomerular Filt Rate > 60; Glucose 100 mg/dL (75-110); Magnesium 1.7 mg/dL (1.6-2.3); Potassium 4.3 mmol/L (3.4-5.0); Sodium 129 mmol/L (137-145)
[2019-09-02] MEDS: MICONAZOLE NITRATE 2% CREAM 30 GM TUBE 1 APPLIC TOPICAL ×2 (08:42→21:37)
[2019-09-02] MEDS: PANTOPRAZOLE SODIUM IV 40 MG VIAL IV PUSH ×2 (08:43→21:37)
[2019-09-02] MEDS: rifAXIMin 550 MG TABLET PO ×2 (08:43→21:37)
[2019-09-02] MEDS: THIAMINE HCL 200 MG/2 ML VIAL 100 MG IV PUSH (08:43)
[2019-09-02] MEDS: FOLIC ACID 1 MG TABLET PO (08:43)
[2019-09-02] MEDS: LORAZEPAM INJ 2 MG/ML VIAL 1 MG IV PUSH (10:30)
[2019-09-02] MEDS: SODIUM CHLORIDE 0.9% IV 1,000 ML 75 ML IV CONT (13:20)
[2019-09-02 14:00] VITALS: BP 110/72; PULSE 111; RESP 16; TEMP 37.2; O2SAT 100
--- NOTE | 2019-09-02 15:24 | PM.IMPN ---
Progress Note: A&P Assessment and Plan (1) Altered mental status: Qualifiers: Altered mental status type: somnolence Qualified Code(s): R40.0 - Somnolence Code(s): R41.82 - Altered mental status, unspecified Status: Acute Assessment and Plan: Most likely result of alcoholism. Much more awake today. CT brain 08/29/2019 with no acute changes. Continue IV fluids as oral intake not good but generally not good at home. Continue PT / OT. Will monitor. Updated family at bedside in detail. Family does plan to take patient home at discharge. (2) Profound anemia: Qualifiers: Anemia type: unspecified type Qualified Code(s): D64.9 - Anemia, unspecified Code(s): D64.9 - Anemia, unspecified Status: Acute Assessment and Plan: Appreciate help from GI. Anemia felt to be related to GI bleed from the Grade II varices and gastritisAs seen on EGD on 08/27/2019. Hgb 6.3 on admission but increased to 9.0 after transfusion of 2 units. Hemoglobin remains stable at 8.6 on 09/01/2019. Will continue to monitor H&H and only transfuse as needed. (3) Esophageal varices in cirrhosis: Code(s): K74.60 - Unspecified cirrhosis of liver; I85.10 - Secondary esophageal varices without bleeding Status: Acute Assessment and Plan: EGD on 08/27/2019 as noted above. Octreotide discontinued on 08/29/2019. Will continue IV Protonix. Will continue to monitor. Currently remains on full liquid diet. Continue Ensure compact to help with intake. Intake known to be poor at home as noted above. Remains on IV ceftriaxone started by GI on 08/27/2019. (4) Cirrhosis: Qualifiers: Ascites presence: with ascites Hepatic cirrhosis type: alcoholic cirrhosis Qualified Code(s): K70.31 - Alcoholic cirrhosis of liver with ascites Code(s): K74.60 - Unspecified cirrhosis of liver Status: Acute Assessment and Plan: Result of alcoholism. GI following as noted above. Paracentesis with removal of only 120mL on 08/28/2019. Will continue vitamin and folic acid. Continue Librium as needed. Discussed additional abdominal distension with family today. Will check KUB and order ultrasound-guided paracentesis for tomorrow but cancel if not necessary. Continue Librium as needed. Also has IV Ativan as needed. KUB results available this evening with findings consistent with adynamic ileus. Will give Dulcolax suppository. May not need paracentesis in a.m. but will reassess tomorrow. (5) Urinary retention: Code(s): R33.9 - Retention of urine, unspecified Status: Acute Assessment and Plan: Jaramillo catheter placed on 08/30/2019 due to urinary retention. UA suspicious but urine culture is negative. Will eventually need voiding trial. (6) Alcoholism: Code(s): F10.20 - Alcohol dependence, uncomplicated Status: Acute Assessment and Plan: Will discontinue CIWA protocol as levels have not been elevated recently. Continue Librium as needed. Continue thiamine and folic acid. Family aware issues liver related to alcohol use. (7) Hypomagnesemia: Code(s): E83.42 - Hypomagnesemia Status: Acute Assessment and Plan: Magnesium stable at 1.7 today. Will continue to follow and replace as needed. (8) Acute hypokalemia: Code(s): E87.6 - Hypokalemia Status: Acute Assessment and Plan: Potassium 4.3 again today. Will continue to monitor. (9) Hyponatremia: Code(s): E87.1 - Hypo-osmolality and hyponatremia Status: Acute Assessment and Plan: Sodium low but stable at 129 today. Will follow. (10) Poor dentition: Code(s): K08.9 - Disorder of teeth and supporting structures, unspecified Status: Acute Assessment and Plan: Noted to have from molars patient having very poor dentition. Advised patient and family will need appropriate dental care after discharge. (11) Elevated lac
--- NOTE | 2019-09-02 16:28 | PCOTNOTE ---
The patient treatment was not able to be completed. Will plan to continue treatment per plan of care.
[2019-09-02 20:49] VITALS: PULSE 124; RESP 16; O2SAT 99
[2019-09-02 21:34] VITALS: BP 108/71; PULSE 114; RESP 18; TEMP 37; O2SAT 100
[2019-09-02] MEDS: BISACODYL 10 MG SUPPOSITORY RECTAL (21:37)
[2019-09-03] MEDS: SODIUM CHLORIDE 0.9% IV 1,000 ML 75 ML IV CONT ×2 (05:06→20:31)
[2019-09-03 06:00] VITALS: BP 123/78; PULSE 128; RESP 20; TEMP 37.2; O2SAT 98
[2019-09-03 06:32] LABS: Hematocrit 23.7 % (42.0-52.0); Hemoglobin 8.2 g/dL (14.0-18.0); Mean Corpuscular HGB Conc 34.6 g/dl (32-36); Mean Corpuscular Hemoglobin 32.2 pg (26-34); Mean Corpuscular Volume 92.9 fl (80-100); Mean Platelet Volume 9.8 fl (7.4-10.4); Platelet Count Result 266 k/mm3 (150-375); Red Blood Count 2.55 M/mm3 (4.6-6.20); Red Cell Distribution Width 17.5 % (11.5-14.5); White Blood Count 15.2 K/mm3 (4.5-10.0)
[2019-09-03 06:46] LABS: Blood Urea Nitrogen 10 mg/dL (9-20); Carbon Dioxide 18 mmol/L (22-30); Chloride 100 mmol/L (98-107); Estimated CRCL calculation 88 ml/min; Estimated Glomerular Filt Rate > 60; Glucose 84 mg/dL (75-110); Magnesium 1.4 mg/dL (1.6-2.3); Potassium 4.4 mmol/L (3.4-5.0); Sodium 130 mmol/L (137-145)
[2019-09-03] MEDS: PANTOPRAZOLE SODIUM IV 40 MG VIAL IV PUSH ×2 (08:20→20:29)
[2019-09-03] MEDS: MAGNESIUM SULF 2 GM/WATER 50ML 2 GM/50 ML BAG IVPB (08:21)
[2019-09-03] MEDS: THIAMINE HCL 200 MG/2 ML VIAL 100 MG IV PUSH (08:21)
[2019-09-03] MEDS: MICONAZOLE NITRATE 2% CREAM 30 GM TUBE 1 APPLIC TOPICAL ×2 (08:21→20:29)
[2019-09-03] MEDS: FOLIC ACID 1 MG TABLET PO (08:21)
[2019-09-03] MEDS: rifAXIMin 550 MG TABLET PO ×2 (08:21→20:29)
[2019-09-03 12:09] VITALS: BMI 21.4
--- NOTE | 2019-09-03 13:24 | PM.IMPN ---
Progress Note: A&P Assessment and Plan (1) Altered mental status: Qualifiers: Altered mental status type: somnolence Qualified Code(s): R40.0 - Somnolence Code(s): R41.82 - Altered mental status, unspecified Status: Acute Assessment and Plan: Most likely result of alcoholism. CT brain 08/29/2019 with no acute changes. Generally drowsy although was awake more yesterday. Oral intake remains poor but was not good at home per family. IV fluids remain in place. Continue PT/OT. Family is planning on taking him home at discharge. (2) Malnutrition: Qualifiers: Malnutrition type: protein-calorie malnutrition Protein-calorie malnutrition severity: moderate Qualified Code(s): E44.0 - Moderate protein-calorie malnutrition Code(s): E46 - Unspecified protein-calorie malnutrition Status: Acute Assessment and Plan: Poor intake at home with intake remaining poor here. GI has advanced him to 2 g sodium diet/soft and bite sized. Does have supplements in place. May need placement of Dobbhoff if intake does not increase with increase in diet. (3) Profound anemia: Qualifiers: Anemia type: unspecified type Qualified Code(s): D64.9 - Anemia, unspecified Code(s): D64.9 - Anemia, unspecified Status: Acute Assessment and Plan: Appreciate help from GI. Anemia felt to be related to GI bleed from the Grade II varices and gastritisAs seen on EGD on 08/27/2019. Hgb 6.3 on admission but increased to 9.0 after transfusion of 2 units. Hemoglobin remains stable at 8.2 on 09/02/2019. Will continue to monitor H&H and only transfuse as needed. (4) Esophageal varices in cirrhosis: Code(s): K74.60 - Unspecified cirrhosis of liver; I85.10 - Secondary esophageal varices without bleeding Status: Acute Assessment and Plan: EGD on 08/27/2019 as noted above. Octreotide discontinued on 08/29/2019. Will continue IV Protonix. Advanced today per GI. IV ceftriaxone discontinued today after 7 day course for prophylaxis for SBP. Continue to monitor. (5) Cirrhosis: Qualifiers: Ascites presence: with ascites Hepatic cirrhosis type: alcoholic cirrhosis Qualified Code(s): K70.31 - Alcoholic cirrhosis of liver with ascites Code(s): K74.60 - Unspecified cirrhosis of liver Status: Acute Assessment and Plan: Result of alcoholism. GI following as noted above. Paracentesis with removal of only 120mL on 08/28/2019. Will continue vitamin and folic acid. Continue Librium as needed with last dose on 09/01/2019. Does have IV Ativan as needed with last dose of 09/02/2019. Noticeable abdominal distention in the past few days. KUB yesterday with findings consistent with adynamic ileus. Did receive Dulcolax suppository last night with bowel movements and gas. Abdomen softer today. No repeat paracentesis needed. Repeat Dulcolax suppository today. Will monitor. (6) Urinary retention: Code(s): R33.9 - Retention of urine, unspecified Status: Acute Assessment and Plan: Jaramillo catheter placed on 08/30/2019 due to urinary retention. UA suspicious but urine culture is negative. Will eventually need voiding trial when more awake and mobile. (7) Alcoholism: Code(s): F10.20 - Alcohol dependence, uncomplicated Status: Acute Assessment and Plan: Has IV Ativan and Librium available as needed with last doses as noted above. Continue thiamine and folic acid. (8) Hypomagnesemia: Code(s): E83.42 - Hypomagnesemia Status: Acute Assessment and Plan: Magnesium 1.4 today with IV replacement given. Will continue to follow and replace as needed. (9) Acute hypokalemia: Code(s): E87.6 - Hypokalemia Status: Acute Assessment and Plan: Potassium 4.4 today. Will continue to monitor. (10) Hyponatremia: Code(s): E87.1 - Hypo-osmolality and hyponatremia Status
[2019-09-03 14:00] VITALS: BP 98/66; PULSE 96; RESP 18; TEMP 36.6; O2SAT 100
--- NOTE | 2019-09-03 15:15 | WPDGIPROGNO ---
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 s/p IV octreotide, stable hb after blood transfusion. ok to discontinue antibiotics today (completed 7 days) (2) Malnutrition: Qualifiers: Malnutrition type: protein-calorie malnutrition Protein-calorie malnutrition severity: moderate Qualified Code(s): E44.0 - Moderate protein-calorie malnutrition Code(s): E46 - Unspecified protein-calorie malnutrition Status: Acute Assessment and Plan: he is not eating much, will order calorie count. He may need DHT placement for enteral feeding if unwilling to eat (3) Ascites due to alcoholic cirrhosis: Code(s): K70.31 - Alcoholic cirrhosis of liver with ascites Status: Acute Assessment and Plan: no evidence of SBP. 2g na diet, will advance to soft with aspiration precautions still poor appetite, encourage to eat and also offer ensure/boost (4) Cirrhosis: Qualifiers: Ascites presence: with ascites Hepatic cirrhosis type: alcoholic cirrhosis Qualified Code(s): K70.31 - Alcoholic cirrhosis of liver with ascites Code(s): K74.60 - Unspecified cirrhosis of liver Status: Acute Assessment and Plan: ETOH use, also pending HCV RNA. Poor prognosis. (5) Acute GI bleeding: Code(s): K92.2 - Gastrointestinal hemorrhage, unspecified Status: Acute (6) Acute alcoholic hepatitis: Code(s): K70.10 - Alcoholic hepatitis without ascites Status: Acute Assessment and Plan: supportive care. Poor prognosis. (7) Alcoholism: Code(s): F10.20 - Alcohol dependence, uncomplicated Status: Acute Assessment and Plan: mvi, nutrition support, thiamine (8) Encephalopathy: Code(s): G93.40 - Encephalopathy, unspecified Status: Acute Assessment and Plan: supportive care, on mvi/thiamine/xifaxan. Subjective Date/time seen: 09/03/19 15:15 Interval history: no major changes over the weekend, still poor oral intake, somnolent Exam Const: General: no acute distress Other: chronically ill appearing, thin, sleeping HENMT: General nose exam: Normal nares present Other: dry mucus membranes Eyes: EOM: EOMs intact bilaterally Neck: Neck: supple Resp: Auscultation: clear to auscultation bilaterally Cardio: Rate: regular rate GI: GI Palp: No Tenderness to palpation present (GI) Auscultation: normal bowel sounds Skin: General skin exam: no erythema and pallor Neuro: Other: still slow to respond but better than yesterday Extrem: General: normal to inspection Psych: Other: sleepy Objective Data Vital Signs Vital Signs: Vital Signs - 24 hr 09/02/19 20:49 09/02/19 21:34 09/03/19 06:00 Temperature 98.6 F 98.9 F Pulse Rate 124 H 114 H 128 H Respiratory Rate 16 18 20 Blood Pressure 108/71 123/78 Pulse Oximetry 99 100 98 09/03/19 14:00 Temperature 97.9 F Pulse Rate 96 Respiratory Rate 18 Blood Pressure 98/66 L Pulse Oximetry 100 Intake/Output Intake/Output: Intake & Output 08/31/19 09/01/19 09/02/19 09/03/19 23:59 23:59 23:59 23:59 Intake Total 2887.3 2288 1830 1030 Output Total 350 300 650 450 Balance 2537.3 1988 1180 580 Meds/Results Medications: Active Medications Generic Name Dose Route Start Last Admin Trade Name Freq PRN Reason Stop Dose Admin Acetaminophen 650 mg 08/31/19 18:09 08/31/19 18:14 Tylenol Tablet PO 650 mg Q4H PRN Administration Pain Chlordiazepoxide HCl 25 mg 08/31/19 18:10 09/01/19 23:58 Librium Po PO 25 mg Q8HR PRN Administration Agitation Folic Acid 1 mg 08/27/19 09:00 09/03/19 08:21 Folic Acid PO 1 mg DAILY BHANU Administration Sodium Chloride 1,000 mls @ 75 mls/hr 08/30/19 16:45 09/03/19
--- NOTE | 2019-09-03 15:16 | PCNSR ---
On 09/03/19, the student, Isa Henry, provided care and completed [facility] documentation on this patient. I have reviewed the student's documentation and agree with the findings.
[2019-09-03] MEDS: BISACODYL 10 MG SUPPOSITORY RECTAL (19:22)
[2019-09-03 21:48] VITALS: BP 103/65; PULSE 105; RESP 16; TEMP 36.8; O2SAT 98
[2019-09-04 05:16] VITALS: BP 121/77; PULSE 115; RESP 18; TEMP 37.2; O2SAT 99
[2019-09-04] MEDS: MICONAZOLE NITRATE 2% CREAM 30 GM TUBE 1 APPLIC TOPICAL ×2 (07:39→21:26)
[2019-09-04] MEDS: rifAXIMin 550 MG TABLET PO ×2 (07:40→21:15)
[2019-09-04] MEDS: PANTOPRAZOLE SODIUM IV 40 MG VIAL IV PUSH ×2 (07:40→21:14)
[2019-09-04] MEDS: FOLIC ACID 1 MG TABLET PO (07:40)
[2019-09-04] MEDS: THIAMINE HCL 200 MG/2 ML VIAL 100 MG IV PUSH (07:42)
[2019-09-04] MEDS: SODIUM CHLORIDE 0.9% IV 1,000 ML 75 ML IV CONT (13:40)
--- NOTE | 2019-09-04 13:57 | PM.IMPN ---
Progress Note: A&P Assessment and Plan (1) Altered mental status: Qualifiers: Altered mental status type: somnolence Qualified Code(s): R40.0 - Somnolence Code(s): R41.82 - Altered mental status, unspecified Status: Acute Assessment and Plan: Most likely result of alcoholism. CT brain 08/29/2019 with no acute changes. More alert today but mumbled speech. Mental status seems to wax and wane. Oral intake remains poor. Talked with family and asked for them to be here at meal times to see if they can hep him eat. Change IV fluids to add dextrose. Continue PT/OT. Family is planning on taking him home at discharge. Check ammonia level. (2) Malnutrition: Qualifiers: Malnutrition type: protein-calorie malnutrition Protein-calorie malnutrition severity: moderate Qualified Code(s): E44.0 - Moderate protein-calorie malnutrition Code(s): E46 - Unspecified protein-calorie malnutrition Status: Acute Assessment and Plan: Intake remaining poor here. GI has advanced him to 2 g sodium diet/soft and bite sized. Does have supplements in place. May need placement of Dobbhoff if intake does not increase with increase in diet. Discussed with GI later who stated patient ate a better lunch with food from family. Continue to monitor intake (3) Profound anemia: Qualifiers: Anemia type: unspecified type Qualified Code(s): D64.9 - Anemia, unspecified Code(s): D64.9 - Anemia, unspecified Status: Acute Assessment and Plan: Appreciate help from GI. Anemia felt to be related to GI bleed from the Grade II varices and gastritis as seen on EGD on 08/27/2019. Hgb 6.3 on admission but increased to 9.0 after transfusion of 2 units. Hemoglobin remains stable in the 8 range. Will continue to monitor H&H and only transfuse as needed. (4) Esophageal varices in cirrhosis: Code(s): K74.60 - Unspecified cirrhosis of liver; I85.10 - Secondary esophageal varices without bleeding Status: Acute Assessment and Plan: EGD on 08/27/2019 as noted above. Octreotide discontinued on 08/29/2019. Will continue IV Protonix. IV ceftriaxone discontinued after 7 day course for prophylaxis for SBP. Continue to monitor. (5) Cirrhosis: Qualifiers: Ascites presence: with ascites Hepatic cirrhosis type: alcoholic cirrhosis Qualified Code(s): K70.31 - Alcoholic cirrhosis of liver with ascites Code(s): K74.60 - Unspecified cirrhosis of liver Status: Acute Assessment and Plan: Result of alcoholism +/- HepC. GI following as noted above. Paracentesis with removal of only 120mL on 08/28/2019. Will continue Thiamine and folic acid. Continue Librium as needed with last dose on 09/01/2019. Does have IV Ativan as needed with last dose of 09/02/2019. Abdominal distention related to ileus but improved today. Multiple BMs recently. Will monitor. (6) Urinary retention: Code(s): R33.9 - Retention of urine, unspecified Status: Acute Assessment and Plan: Jaramillo catheter placed on 08/30/2019 due to urinary retention. UA suspicious but urine culture is negative. Will eventually need voiding trial when more awake and mobile. (7) Alcoholism: Code(s): F10.20 - Alcohol dependence, uncomplicated Status: Acute Assessment and Plan: Has IV Ativan and Librium available as needed with last doses as noted above. Continue thiamine and folic acid. (8) Hypomagnesemia: Code(s): E83.42 - Hypomagnesemia Status: Acute Assessment and Plan: Magnesium 1.4 yesterday with IV replacement given. Will repeat level tomorrow (9) Acute hypokalemia: Code(s): E87.6 - Hypokalemia Status: Acute Assessment and Plan: Potassium 4.4 yesterday. Will continue to monitor. (10) Hyponatremia: Code(s): E87.1 - Hypo-osmolality and hyponatremia Status: Acute Assessmen
[2019-09-04 14:00] VITALS: BP 104/76; PULSE 114; RESP 18; TEMP 36.9; O2SAT 99
--- NOTE | 2019-09-04 14:29 | PCDIET ---
Saw pt today for a brief follow up. Pt able to talk more than yesterday. Stated he has very little appetite. Reports no abdominal pain nor N/V. Current diet order appropriate. As of yesterday Pt on calorie count. No counts collected as of today but nurse reported he drank almost an entire container of strawberry milk today and his mother helped order his lunch. Asked nursing staff to place envelope on door to collect meal tickets. Will continue to monitor and count caloric intake.
[2019-09-04] MEDS: DEXTROSE 5%/0.9% SOD CHL 1,000 ML 70 ML IV CONT (14:47)
--- NOTE | 2019-09-04 14:55 | WPDGIPROGNO ---
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 s/p IV octreotide, also completed antibiotics, stable hb after blood transfusion. (2) Malnutrition: Qualifiers: Malnutrition type: protein-calorie malnutrition Protein-calorie malnutrition severity: moderate Qualified Code(s): E44.0 - Moderate protein-calorie malnutrition Code(s): E46 - Unspecified protein-calorie malnutrition Status: Acute Assessment and Plan: we advanced diet yesterday and eating more, he is alert today. continue with thiamine, mvi, zinc and nutritional support (3) Ascites due to alcoholic cirrhosis: Code(s): K70.31 - Alcoholic cirrhosis of liver with ascites Status: Acute Assessment and Plan: no evidence of SBP. 2g na diet, will advance to soft with aspiration precautions still poor appetite, encourage to eat and also offer ensure/boost (4) Cirrhosis: Qualifiers: Ascites presence: with ascites Hepatic cirrhosis type: alcoholic cirrhosis Qualified Code(s): K70.31 - Alcoholic cirrhosis of liver with ascites Code(s): K74.60 - Unspecified cirrhosis of liver Status: Acute Assessment and Plan: ETOH use. HCV RNA was negative. (5) Acute GI bleeding: Code(s): K92.2 - Gastrointestinal hemorrhage, unspecified Status: Acute (6) Acute alcoholic hepatitis: Code(s): K70.10 - Alcoholic hepatitis without ascites Status: Acute Assessment and Plan: supportive care. Poor prognosis. (7) Alcoholism: Code(s): F10.20 - Alcohol dependence, uncomplicated Status: Acute Assessment and Plan: mvi, nutrition support, thiamine (8) Encephalopathy: Code(s): G93.40 - Encephalopathy, unspecified Status: Acute Assessment and Plan: supportive care, on mvi/thiamine/xifaxan. Subjective Date/time seen: 09/04/19 14:55 Interval history: today is more awake, RN reports that family brought subway and also had some lunch. Exam Const: General: no acute distress Other: chronically ill appearing, thin, more awake today HENMT: General nose exam: Normal nares present Other: dry mucus membranes Eyes: EOM: EOMs intact bilaterally Neck: Neck: supple Resp: Auscultation: clear to auscultation bilaterally Cardio: Rate: regular rate GI: GI Palp: No Tenderness to palpation present (GI) Auscultation: normal bowel sounds Urinary Catheter: Urinary Catheter: patent and draining Skin: General skin exam: no erythema and pallor Neuro: Other: still slow to respond but better than yesterday Extrem: General: normal to inspection Psych: Other: sleepy Objective Data Vital Signs Vital Signs: Vital Signs - 24 hr 09/03/19 21:48 09/04/19 05:16 Temperature 98.3 F 98.9 F Pulse Rate 105 H 115 H Respiratory Rate 16 18 Blood Pressure 103/65 121/77 Pulse Oximetry 98 99 Intake/Output Intake/Output: Intake & Output 09/01/19 09/02/19 09/03/19 09/04/19 23:59 23:59 23:59 23:59 Intake Total 2288 1830 2030 1640 Output Total 300 650 750 150 Balance 1988 1180 1280 1490 Meds/Results Medications: Active Medications Generic Name Dose Route Start Last Admin Trade Name Freq PRN Reason Stop Dose Admin Acetaminophen 650 mg 08/31/19 18:09 08/31/19 18:14 Tylenol Tablet PO 650 mg Q4H PRN Administration Pain Chlordiazepoxide HCl 25 mg 08/31/19 18:10 09/01/19 23:58 Librium Po PO 25 mg Q8HR PRN Administration Agitation Folic Acid 1 mg 08/27/19 09:00 09/04/19 07:40 Folic Acid PO 1 mg DAILY BHANU Administration Dextrose/Sodium Chloride 1,000 mls @ 70 mls/hr 09/04/19 14:10 09/04/19 14:47 Dextrose 5% Sodium Chloride 0.9% IV CONT 70 mls/hr .[id number] BHANU Administration Lo
--- NOTE | 2019-09-04 15:35 | PCNSR ---
On 09/04/19, the student, Isa Henry, provided care and completed [facility] documentation on this patient. I have reviewed the student's documentation and agree with the findings.
[2019-09-04] MEDS: ZINC SULFATE 220 MG CAPSULE PO (17:38)
[2019-09-04 22:00] VITALS: BP 117/79; PULSE 110; RESP 16; TEMP 36.3; O2SAT 100
[2019-09-05 05:00] VITALS: BP 110/76; PULSE 96; RESP 18; TEMP 36.3; O2SAT 100
[2019-09-05] MEDS: DEXTROSE 5%/0.9% SOD CHL 1,000 ML 70 ML IV CONT (05:19)
[2019-09-05 06:07] LABS: Ammonia 20 umol/L (9-30)
[2019-09-05 06:25] LABS: Hematocrit 23.8 % (42.0-52.0); Hemoglobin 7.9 g/dL (14.0-18.0); Mean Corpuscular HGB Conc 33.2 g/dl (32-36); Mean Corpuscular Hemoglobin 32.8 pg (26-34); Mean Corpuscular Volume 98.8 fl (80-100); Mean Platelet Volume 9.5 fl (7.4-10.4); Platelet Count Result 242 k/mm3 (150-375); Red Blood Count 2.41 M/mm3 (4.6-6.20); Red Cell Distribution Width 17.9 % (11.5-14.5); White Blood Count 8.9 K/mm3 (4.5-10.0)
[2019-09-05 06:40] LABS: Alanine Aminotransferase 26 U/L (4-50); Albumin Level 2.5 g/dL (3.5-5.1); Alkaline Phosphatase 177 U/L (38-126); Aspartate Amino Transferase 85 U/L (17-59); Blood Urea Nitrogen 9 mg/dL (9-20); Calcium 8.1 mg/dL (8.4-10.2); Carbon Dioxide 18 mmol/L (22-30); Chloride 104 mmol/L (98-107); Estimated CRCL calculation 115 ml/min; Estimated Glomerular Filt Rate > 60; Glucose 103 mg/dL (75-110); Magnesium 1.5 mg/dL (1.6-2.3); Phosphorus 4.1 mg/dL (2.5-4.5); Potassium 4.2 mmol/L (3.4-5.0); Sodium 132 mmol/L (137-145)
[2019-09-05] MEDS: THIAMINE HCL 200 MG/2 ML VIAL 100 MG IV PUSH (10:28)
[2019-09-05] MEDS: PANTOPRAZOLE SODIUM IV 40 MG VIAL IV PUSH ×2 (10:28→20:58)
[2019-09-05] MEDS: MAGNESIUM SULF 2 GM/WATER 50ML 2 GM/50 ML BAG IVPB (10:30)
[2019-09-05] MEDS: MICONAZOLE NITRATE 2% CREAM 30 GM TUBE 1 APPLIC TOPICAL ×2 (10:30→20:58)
[2019-09-05] MEDS: FOLIC ACID 1 MG TABLET PO (10:39)
[2019-09-05] MEDS: rifAXIMin 550 MG TABLET PO ×2 (10:39→20:58)
[2019-09-05] MEDS: ZINC SULFATE 220 MG CAPSULE PO (10:39)
--- NOTE | 2019-09-05 13:10 | PM.IMPN ---
Progress Note: A&P Assessment and Plan (1) Altered mental status: Qualifiers: Altered mental status type: somnolence Qualified Code(s): R40.0 - Somnolence Code(s): R41.82 - Altered mental status, unspecified Status: Acute Assessment and Plan: Most likely result of alcoholism. CT brain 08/29/2019 with no acute changes. Alert but mumbled speech. Mental status seems to wax and wane. Oral intake remains poor. Asked for family to be here at meal times to see if they can hep him eat. Continue PT/OT. Family is planning on taking him home at discharge. (2) Malnutrition: Qualifiers: Malnutrition type: protein-calorie malnutrition Protein-calorie malnutrition severity: moderate Qualified Code(s): E44.0 - Moderate protein-calorie malnutrition Code(s): E46 - Unspecified protein-calorie malnutrition Status: Acute Assessment and Plan: Intake remaining poor here. GI has advanced him to 2 g sodium diet/soft and bite sized. Does have supplements in place. May need placement of Dobbhoff if intake does not increase with increase in diet. Add megace. Check HIV to exclude other etiologies. Metabolic acidosis noted. Etiology unclear. Will add oral bicarb. (3) Profound anemia: Qualifiers: Anemia type: unspecified type Qualified Code(s): D64.9 - Anemia, unspecified Code(s): D64.9 - Anemia, unspecified Status: Acute Assessment and Plan: Appreciate help from GI. Anemia felt to be related to GI bleed from the Grade II varices and gastritis as seen on EGD on 08/27/2019. Hgb 6.3 on admission but increased to 9.0 after transfusion of 2 units. Hemoglobin remains stable in the 8 range (7.9 today). Will continue to monitor H&H and transfuse as needed. (4) Esophageal varices in cirrhosis: Code(s): K74.60 - Unspecified cirrhosis of liver; I85.10 - Secondary esophageal varices without bleeding Status: Acute Assessment and Plan: EGD on 08/27/2019 as noted above. Octreotide discontinued on 08/29/2019. Will continue IV Protonix. IV ceftriaxone discontinued after 7 day course for prophylaxis for SBP. Continue to monitor. (5) Cirrhosis: Qualifiers: Ascites presence: with ascites Hepatic cirrhosis type: alcoholic cirrhosis Qualified Code(s): K70.31 - Alcoholic cirrhosis of liver with ascites Code(s): K74.60 - Unspecified cirrhosis of liver Status: Acute Assessment and Plan: Result of alcoholism +/- HepC. GI following as noted above. Paracentesis with removal of only 120mL on 08/28/2019. Will continue Thiamine and folic acid. Continue Librium as needed with last dose on 09/01/2019. Does have IV Ativan as needed with last dose of 09/02/2019. Abdominal distention related to ileus and worse today. Multiple BMs recently. TBili and AST improving. Will check CT A/P to exclude obstructive process. CT scan showing large volume of ascites but no dilated loops. Will perform therapeutic tap in the morning. (6) Urinary retention: Code(s): R33.9 - Retention of urine, unspecified Status: Acute Assessment and Plan: Jaramillo catheter placed on 08/30/2019 due to urinary retention. UA suspicious but urine culture is negative. Will eventually need voiding trial when more awake and mobile. (7) Alcoholism: Code(s): F10.20 - Alcohol dependence, uncomplicated Status: Acute Assessment and Plan: Has IV Ativan and Librium available as needed with last doses as noted above. Continue thiamine and folic acid. (8) Hypomagnesemia: Code(s): E83.42 - Hypomagnesemia Status: Acute Assessment and Plan: Magnesium 1.5. Replacement ordered. Continue to follow. (9) Acute hypokalemia: Code(s): E87.6 - Hypokalemia Status: Acute Assessment and Plan: Potassium remaining normal range. Will continue to monitor. (10) Hy
--- NOTE | 2019-09-05 13:24 | PCNFU ---
Nutrition Follow-Up Complete: Inadequate oral intake related to alcoholism and altered mental status as evidenced by prior admission dietary recall, hospital meal records, and medical dx of malnutrition. Patient will consume greater than 50% of current diet in addition to Ensure Compants (TID). If goal is not met, nutrition support should be discussed. Goal:limited progress towards goal. Pt current nutrition is Soft & Bite Sized, Level 6/2 gm Na . Nutrition recommendation: Agree Last recorded weight is 62 kg. Bowel Motility:+BM Labs Reviewed:Mg 1.5,Na 132,Alb 2.5,BUN 0.6 Meds Noted:Folic Acid, Thiamine, Protonix, Ativan Additional Notes: Calorie Count noted. I spoke with nursing today. No tickets let to assessment meals. I was told his family brought in a 6 inch [employer] last night, unknown on kind of sandwich. He also had a strawberry milk shake, amount unknown or where it was from. Today for bkfast-10 bites of applesauce, 60 ml of Ensure Compact and and 1/4 cup of OJ. Patient currently is not meeting caloric needs. I spoke with nursing staff in regards to assisting patient with meals and recording intake. If intake continues to be poor, I would recommend supplemental enteral feedings until patient is able to meet calorie needs needs required. Aric monitor intake, weight, and labs. Will follow up in 3 days.
[2019-09-05 14:00] VITALS: BP 100/77; PULSE 103; RESP 18; TEMP 36.4; O2SAT 100
--- NOTE | 2019-09-05 14:08 | WPDGIPROGNO ---
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 s/p IV octreotide, also completed antibiotics, stable hb after blood transfusion. (2) Malnutrition: Qualifiers: Malnutrition type: protein-calorie malnutrition Protein-calorie malnutrition severity: moderate Qualified Code(s): E44.0 - Moderate protein-calorie malnutrition Code(s): E46 - Unspecified protein-calorie malnutrition Status: Acute Assessment and Plan: we advanced diet yesterday and eating some. Abdomen more distended but no tender- pending CT scan a/p continue with thiamine, mvi, zinc and nutritional support (3) Ascites due to alcoholic cirrhosis: Code(s): K70.31 - Alcoholic cirrhosis of liver with ascites Status: Acute Assessment and Plan: no evidence of SBP. 2g na diet, will advance to soft with aspiration precautions still poor appetite, encourage to eat and also offer ensure/boost (4) Cirrhosis: Qualifiers: Ascites presence: with ascites Hepatic cirrhosis type: alcoholic cirrhosis Qualified Code(s): K70.31 - Alcoholic cirrhosis of liver with ascites Code(s): K74.60 - Unspecified cirrhosis of liver Status: Acute Assessment and Plan: ETOH use. HCV RNA was negative. (5) Acute GI bleeding: Code(s): K92.2 - Gastrointestinal hemorrhage, unspecified Status: Acute (6) Acute alcoholic hepatitis: Code(s): K70.10 - Alcoholic hepatitis without ascites Status: Acute Assessment and Plan: supportive care. Poor prognosis. (7) Alcoholism: Code(s): F10.20 - Alcohol dependence, uncomplicated Status: Acute Assessment and Plan: mvi, nutrition support, thiamine (8) Encephalopathy: Code(s): G93.40 - Encephalopathy, unspecified Status: Acute Assessment and Plan: supportive care, on mvi/thiamine/xifaxan. Subjective Date/time seen: 09/05/19 14:08 Interval history: sleeping now, RN reports that had 50% of chicken for lunch, no vomiting. Noted more abdominal distension Review of Systems Review of Systems: ROS unobtainable: unobtainable due to mental status Exam Const: General: no acute distress Other: chronically ill appearing, thin, more awake today HENMT: General nose exam: Normal nares present Other: dry mucus membranes Eyes: EOM: EOMs intact bilaterally Neck: Neck: supple Resp: Auscultation: clear to auscultation bilaterally Cardio: Rate: regular rate GI: Inspection: distended GI Palp: No Tenderness to palpation present (GI) Percussion: Yes tympanic to percussion Auscultation: normal bowel sounds Urinary Catheter: Urinary Catheter: patent and draining Skin: General skin exam: no erythema and pallor Neuro: Other: still slow to respond but better than yesterday Extrem: General: normal to inspection Psych: Other: sleepy Objective Data Vital Signs Vital Signs: Vital Signs - 24 hr 09/04/19 22:00 09/05/19 05:00 Temperature 97.4 F L 97.3 F L Pulse Rate 110 H 96 Respiratory Rate 16 18 Blood Pressure 117/79 110/76 Pulse Oximetry 100 100 Intake/Output Intake/Output: Intake & Output 09/02/19 09/03/19 09/04/19 09/05/19 23:59 23:59 23:59 23:59 Intake Total 1830 2030 2600 1270 Output Total 650 750 550 250 Balance 1180 1280 2050 1020 Meds/Results Medications: Active Medications Generic Name Dose Route Start Last Admin Trade Name Freq PRN Reason Stop Dose Admin Acetaminophen 650 mg 08/31/19 18:09 08/31/19 18:14 Tylenol Tablet PO 650 mg Q4H PRN Administration Pain Chlordiazepoxide HCl 25 mg 08/31/19 18:10 09/01/19 23:58 Librium Po PO 25 mg Q8HR PRN Administration Agitation Folic Acid 1 mg 08/27/19 09:00 09/05/19 10:39 Foli
[2019-09-05 22:00] VITALS: BP 98/75; PULSE 101; RESP 16; TEMP 36.4; O2SAT 100
[2019-09-06] MEDS: DEXTROSE 5%/0.9% SOD CHL 1,000 ML 70 ML IV CONT (00:37)
[2019-09-06 06:00] VITALS: BP 96/68; PULSE 93; RESP 18; TEMP 36.6; O2SAT 98
[2019-09-06 06:30] LABS: Hematocrit 23.9 % (42.0-52.0); Mean Corpuscular HGB Conc 33.5 g/dl (32-36); Mean Corpuscular Hemoglobin 32.5 pg (26-34); Mean Corpuscular Volume 97.2 fl (80-100); Mean Platelet Volume 9.4 fl (7.4-10.4); Platelet Count Result 251 k/mm3 (150-375); Red Blood Count 2.46 M/mm3 (4.6-6.20); Red Cell Distribution Width 17.3 % (11.5-14.5); White Blood Count 8.9 K/mm3 (4.5-10.0)
[2019-09-06 06:42] LABS: INR 1.3; Prothrombin Time 15.7 Seconds (11.1-14.7)
[2019-09-06 06:43] LABS: Partial Thromboplastin Time 47.7 SECONDS (22.3-36.8)
[2019-09-06 06:45] LABS: Albumin Level 2.4 g/dL (3.5-5.1); Blood Urea Nitrogen 8 mg/dL (9-20); Calcium 8.1 mg/dL (8.4-10.2); Carbon Dioxide 19 mmol/L (22-30); Chloride 105 mmol/L (98-107); Estimated CRCL calculation 100 ml/min; Estimated Glomerular Filt Rate > 60; Glucose 99 mg/dL (75-110); Magnesium 1.7 mg/dL (1.6-2.3); Phosphorus 4.3 mg/dL (2.5-4.5); Potassium 4.1 mmol/L (3.4-5.0); Sodium 134 mmol/L (137-145)
[2019-09-06 07:24] LABS: HIV 1/2 Ab P24 Ag Result Negative (Negative)
[2019-09-06 08:18] LABS: Lactic Acid Reflex 1.2 mmol/L (0.7-2.1)
--- NOTE | 2019-09-06 11:24 | PCOTNOTE ---
Attempted to see patient this am, however patient was off floor at this time for Ultrasound.
--- NOTE | 2019-09-06 13:00 | PCDIET ---
Addendum entered by Megan Rodriguez, CORA, LDN 09/06/19 14:51: Estimated kcal intake: 375kcals Original Note: Meal tickets on 09/05 collected and saved for calorie count. In the morning, pt had 2oz applesauce and 1oz orange juice. In the afternoon, drank 5oz orange juice, 2oz Ensure Compact, and 50% of grilled chicken with gravy. In the evening, had 1 jello and 1 orange juice. Will continue to collect tickets.
[2019-09-06 13:38] LABS: Appearance Peritoneal Fluid Clear (Clear); Color Peritoneal Fluid Yellow (Colorless); Lymphocytes Peritoneal Fluid 9 %; Monocytes Peritoneal Fluid 45 %; Neutrophils Peritoneal Fluid 22 % (0-25); Nucleated Cells Peritoneal Flu 76 /uL (0-500); RBC Peritoneal Fluid 652 /uL (0-100000); Source Peritoneal Fluid Peritoneal Fluid
[2019-09-06 13:39] LABS: Macrophages Peritoneal Fluid 9 %; Mesothelial Cells Peritoneal Fluid 15 %
[2019-09-06 14:00] VITALS: BP 89/60; PULSE 93; RESP 18; TEMP 36.4; O2SAT 100
[2019-09-06] MEDS: PANTOPRAZOLE SODIUM IV 40 MG VIAL IV PUSH (14:05)
[2019-09-06] MEDS: FOLIC ACID 1 MG TABLET PO (14:05)
[2019-09-06] MEDS: rifAXIMin 550 MG TABLET PO ×2 (14:06→20:23)
[2019-09-06] MEDS: MICONAZOLE NITRATE 2% CREAM 30 GM TUBE 1 APPLIC TOPICAL ×2 (14:06→20:24)
[2019-09-06] MEDS: ZINC SULFATE 220 MG CAPSULE PO (14:06)
[2019-09-06] MEDS: THIAMINE HCL 200 MG/2 ML VIAL 100 MG IV PUSH (14:06)
[2019-09-06] MEDS: SODIUM BICARBONATE TAB 325 MG TABLET PO ×2 (14:07→16:46)
[2019-09-06] MEDS: MEGESTROL ACETATE (*CHEMO) ORAL SUSP 40 MG/ML SYR 800 MG PO (14:08)
--- NOTE | 2019-09-06 14:35 | WPDGIPROGNO ---
Progress Note: A&P Assessment and Plan (1) Ascites due to alcoholic cirrhosis: Code(s): K70.31 - Alcoholic cirrhosis of liver with ascites Status: Acute Assessment and Plan: repeat paracentesis after finding of CT scan, no SBP. will start low dose of diuretics and continue with strict 2g na diet, soft with aspiration precautions, also ensure/boost, nutritional support (2) Esophageal varices in cirrhosis: Code(s): K74.60 - Unspecified cirrhosis of liver; I85.10 - Secondary esophageal varices without bleeding Status: Acute Assessment and Plan: s/p banding, no more bleeding. s/p IV octreotide, also completed antibiotics, stable hb after blood transfusion. (3) Malnutrition: Qualifiers: Malnutrition type: protein-calorie malnutrition Protein-calorie malnutrition severity: moderate Qualified Code(s): E44.0 - Moderate protein-calorie malnutrition Code(s): E46 - Unspecified protein-calorie malnutrition Status: Acute Assessment and Plan: continue with thiamine, mvi, zinc and nutritional support (4) Cirrhosis: Qualifiers: Ascites presence: with ascites Hepatic cirrhosis type: alcoholic cirrhosis Qualified Code(s): K70.31 - Alcoholic cirrhosis of liver with ascites Code(s): K74.60 - Unspecified cirrhosis of liver Status: Acute Assessment and Plan: ETOH use. HCV RNA was negative. (5) Acute GI bleeding: Code(s): K92.2 - Gastrointestinal hemorrhage, unspecified Status: Acute (6) Acute alcoholic hepatitis: Code(s): K70.10 - Alcoholic hepatitis without ascites Status: Acute Assessment and Plan: supportive care. Poor prognosis. (7) Alcoholism: Code(s): F10.20 - Alcohol dependence, uncomplicated Status: Acute Assessment and Plan: mvi, nutrition support, thiamine (8) Encephalopathy: Code(s): G93.40 - Encephalopathy, unspecified Status: Acute Assessment and Plan: supportive care, on mvi/thiamine/xifaxan. Subjective Date/time seen: 09/06/19 14:35 Interval history: patient underwent almost 2 L of paracentesis (CT a/p showed large ascites), abdomen less distended. No SBP. Review of Systems Review of Systems: ROS unobtainable: unobtainable due to mental status Exam Const: General: no acute distress Other: chronically ill appearing, thin, awake but still confused HENMT: General nose exam: Normal nares present Other: dry mucus membranes Eyes: EOM: EOMs intact bilaterally Neck: Neck: supple Resp: Auscultation: clear to auscultation bilaterally Cardio: Rate: regular rate GI: Inspection: other (less distended after paracentesis) GI Palp: No Tenderness to palpation present (GI) Percussion: Yes Fluid wave present Auscultation: normal bowel sounds Urinary Catheter: Urinary Catheter: patent and draining Skin: General skin exam: no erythema and pallor Neuro: Other: still slow to respond but better than yesterday Extrem: General: normal to inspection Psych: Other: sleepy Objective Data Vital Signs Vital Signs: Vital Signs - 24 hr 09/05/19 22:00 09/06/19 06:00 Temperature 97.5 F L 97.9 F Pulse Rate 101 H 93 Respiratory Rate 16 18 Blood Pressure 98/75 L 96/68 L Pulse Oximetry 100 98 Intake/Output Intake/Output: Intake & Output 09/03/19 09/04/19 09/05/19 09/06/19 23:59 23:59 23:59 23:59 Intake Total 2030 2600 2261 1071 Output Total 750 846 583 1002 Balance 1280 2050 183 Meds/Results Medications: Active Medications Generic Name Dose Route Start Last Admin Trade Name Freq PRN Reason Stop Dose Admin Acetaminophen 650 mg 08/31/19 18:09 08/31/19 18:14 Tylenol Tablet PO 650 mg Q4H PRN Administration Pain Chlordiazepoxide HCl 25 mg 08/31/19 18:10 09/01/19 23:58 Librium Po PO 25 mg Q8HR PRN Administration Agitation Folic Acid 1 mg 08/27/19 09:00 09/06/19 14:05 Folic Acid PO 1
--- NOTE | 2019-09-06 16:06 | PM.IMPN ---
Progress Note: A&P Assessment and Plan (1) Altered mental status: Qualifiers: Altered mental status type: somnolence Qualified Code(s): R40.0 - Somnolence Code(s): R41.82 - Altered mental status, unspecified Status: Acute Assessment and Plan: Most likely result of alcoholism. CT brain 08/29/2019 with no acute changes. Alert but but confused with mumbled speech. Mental status more stable with evidence of slight improvement. Oral intake remains poor. Asked for family to be here at meal times to see if they can hep him eat. Continue PT/OT. Family is planning on taking him home at discharge. (2) Malnutrition: Qualifiers: Malnutrition type: protein-calorie malnutrition Protein-calorie malnutrition severity: moderate Qualified Code(s): E44.0 - Moderate protein-calorie malnutrition Code(s): E46 - Unspecified protein-calorie malnutrition Status: Acute Assessment and Plan: Intake remaining poor here. GI has advanced him to 2 g sodium diet/soft and bite sized. Supplements added. Megace added. Metabolic acidosis noted and may blunt his appetite. Bicarb started to see if this helps. Etiology unclear. SLIVF. (3) Profound anemia: Qualifiers: Anemia type: unspecified type Qualified Code(s): D64.9 - Anemia, unspecified Code(s): D64.9 - Anemia, unspecified Status: Acute Assessment and Plan: Appreciate help from GI. Anemia felt to be related to GI bleed from the Grade II varices and gastritis as seen on EGD on 08/27/2019. Probably chronic anemia as well. Hgb 6.3 on admission but increased to 9.0 after transfusion of 2 units. Hemoglobin remains stable mostly in the 8 range. Will continue to monitor H&H and transfuse as needed. (4) Esophageal varices in cirrhosis: Code(s): K74.60 - Unspecified cirrhosis of liver; I85.10 - Secondary esophageal varices without bleeding Status: Acute Assessment and Plan: EGD on 08/27/2019 as noted above. Octreotide discontinued on 08/29/2019. Will continue Protonix. IV ceftriaxone discontinued after 7 day course for prophylaxis for SBP. Continue to monitor. (5) Cirrhosis: Qualifiers: Ascites presence: with ascites Hepatic cirrhosis type: alcoholic cirrhosis Qualified Code(s): K70.31 - Alcoholic cirrhosis of liver with ascites Code(s): K74.60 - Unspecified cirrhosis of liver Status: Acute Assessment and Plan: Result of alcoholism. HepC Ab positive but RNA PCR negative (treated infection?). GI following as noted above. Paracentesis with removal of only 120mL on 08/28/2019. CT yesterday dhowing large volume of ascites and patient underwent repeat paracentesis today with removal on 2.9L. Librium as needed with last dose on 09/01/2019. IV Ativan as needed with last dose of 09/02/2019. TBili and AST improving. Will continue Thiamine and folic acid. Lasix and Spironolactone added - watch for HoTN. Add supplements. (6) Urinary retention: Code(s): R33.9 - Retention of urine, unspecified Status: Acute Assessment and Plan: Jaramillo catheter placed on 08/30/2019 due to urinary retention. UA suspicious but urine culture is negative. Will eventually need voiding trial when more awake and mobile. (7) Alcoholism: Code(s): F10.20 - Alcohol dependence, uncomplicated Status: Acute Assessment and Plan: Has IV Ativan and Librium available as needed with last doses as noted above. Continue thiamine and folic acid. (8) Hypomagnesemia: Code(s): E83.42 - Hypomagnesemia Status: Acute Assessment and Plan: Magnesium 1.7. Continue to follow. (9) Acute hypokalemia: Code(s): E87.6 - Hypokalemia Status: Acute Assessment and Plan: Potassium remaining normal range. Will continue to monitor closely now that he is on diuretics. (10) Hyponatremia: Code(s
[2019-09-06] MEDS: PANTOPRAZOLE 40 MG TABLET PO (20:24)
[2019-09-06 22:00] VITALS: BP 105/78; PULSE 93; RESP 18; TEMP 36.4; O2SAT 100
[2019-09-07 06:00] VITALS: BP 104/72; PULSE 103; RESP 20; TEMP 36.4; O2SAT 100
[2019-09-07 06:31] LABS: Hematocrit 24.4 % (42.0-52.0); Hemoglobin 8.1 g/dL (14.0-18.0); Mean Corpuscular HGB Conc 33.2 g/dl (32-36); Mean Corpuscular Hemoglobin 32.3 pg (26-34); Mean Corpuscular Volume 97.2 fl (80-100); Mean Platelet Volume 9.7 fl (7.4-10.4); Platelet Count Result 248 k/mm3 (150-375); Red Blood Count 2.51 M/mm3 (4.6-6.20); Red Cell Distribution Width 17.3 % (11.5-14.5); White Blood Count 9.3 K/mm3 (4.5-10.0)
[2019-09-07 06:45] LABS: Blood Urea Nitrogen 8 mg/dL (9-20); Calcium 8.1 mg/dL (8.4-10.2); Carbon Dioxide 21 mmol/L (22-30); Chloride 107 mmol/L (98-107); Estimated CRCL calculation 115 ml/min; Estimated Glomerular Filt Rate > 60; Glucose 109 mg/dL (75-110); Magnesium 1.4 mg/dL (1.6-2.3); Sodium 138 mmol/L (137-145)
[2019-09-07] MEDS: FUROSEMIDE 20 MG TABLET PO (09:01)
[2019-09-07] MEDS: FOLIC ACID 1 MG TABLET PO (09:01)
[2019-09-07] MEDS: MAGNESIUM SULF 2 GM/WATER 50ML 2 GM/50 ML BAG IVPB (09:01)
[2019-09-07] MEDS: MEGESTROL ACETATE (*CHEMO) ORAL SUSP 40 MG/ML SYR 800 MG PO (09:01)
[2019-09-07] MEDS: ZINC SULFATE 220 MG CAPSULE PO (09:02)
[2019-09-07] MEDS: MICONAZOLE NITRATE 2% CREAM 30 GM TUBE 1 APPLIC TOPICAL ×2 (09:02→21:07)
[2019-09-07] MEDS: THIAMINE HCL 200 MG/2 ML VIAL 100 MG IV PUSH (09:02)
[2019-09-07] MEDS: SPIRONOLACTONE 50 MG TABLET PO (09:02)
[2019-09-07] MEDS: PANTOPRAZOLE 40 MG TABLET PO ×2 (09:02→21:07)
[2019-09-07] MEDS: rifAXIMin 550 MG TABLET PO ×2 (09:02→21:07)
[2019-09-07] MEDS: SODIUM BICARBONATE TAB 325 MG TABLET PO ×2 (09:02→16:42)
--- NOTE | 2019-09-07 11:54 | PM.IMPN ---
Progress Note: A&P Assessment and Plan (1) Altered mental status: Qualifiers: Altered mental status type: somnolence Qualified Code(s): R40.0 - Somnolence Code(s): R41.82 - Altered mental status, unspecified Status: Acute Assessment and Plan: Most likely result of alcoholism. CT brain 08/29/2019 with no acute changes. Alert but confused with mumbled speech. Mental status more stable with evidence of slight improvement. Asked for family to be here at meal times to see if they can hep him eat. Continue PT/OT. Family now wants patient to be moved to a SNF as this has been arranged. Will repeat CT brain to exclude an evolving CVA. (2) Malnutrition: Qualifiers: Malnutrition type: protein-calorie malnutrition Protein-calorie malnutrition severity: moderate Qualified Code(s): E44.0 - Moderate protein-calorie malnutrition Code(s): E46 - Unspecified protein-calorie malnutrition Status: Acute Assessment and Plan: Intake seems to be improving especially if he has help with eating. GI has advanced him to 2 g sodium diet/soft and bite sized. Supplements added. Megace added. Metabolic acidosis noted and improving with Bicarb. Continue to adjust medications. (3) Profound anemia: Qualifiers: Anemia type: unspecified type Qualified Code(s): D64.9 - Anemia, unspecified Code(s): D64.9 - Anemia, unspecified Status: Acute Assessment and Plan: Appreciate help from GI. Anemia felt to be related to GI bleed from the Grade II varices and gastritis as seen on EGD on 08/27/2019. Probably chronic anemia as well. Hgb 6.3 on admission but increased to 9.0 after transfusion of 2 units. Hemoglobin remains stable mostly in the 8 range. Will continue to monitor H&H and transfuse as needed. (4) Esophageal varices in cirrhosis: Code(s): K74.60 - Unspecified cirrhosis of liver; I85.10 - Secondary esophageal varices without bleeding Status: Acute Assessment and Plan: EGD on 08/27/2019 as noted above. Octreotide discontinued on 08/29/2019. Will continue Protonix. IV ceftriaxone discontinued after 7 day course for prophylaxis for SBP. Continue to monitor. Consider betablocker if BP remains stable. (5) Cirrhosis: Qualifiers: Ascites presence: with ascites Hepatic cirrhosis type: alcoholic cirrhosis Qualified Code(s): K70.31 - Alcoholic cirrhosis of liver with ascites Code(s): K74.60 - Unspecified cirrhosis of liver Status: Acute Assessment and Plan: Result of alcoholism. HepC Ab positive but RNA PCR negative (treated infection?). GI following as noted above. Paracentesis with removal of only 120mL on 08/28/2019. CT on 09/05/19 showing large volume of ascites and patient underwent repeat paracentesis with removal on 2.9L. TBili and AST improving. Will continue Thiamine and folic acid. Lasix and Spironolactone added - watch for HoTN. Oral intake improving slowly. Continue supplements. (6) Urinary retention: Code(s): R33.9 - Retention of urine, unspecified Status: Acute Assessment and Plan: Jaramillo catheter placed on 08/30/2019 due to urinary retention. UA suspicious but urine culture is negative. Will eventually need voiding trial when more awake and mobile. (7) Alcoholism: Code(s): F10.20 - Alcohol dependence, uncomplicated Status: Acute Assessment and Plan: No evidence of symptoms or signs of alcohol withdrawal. Benzodiazepines and stopped. Continue thiamine and folic acid. (8) Hypomagnesemia: Code(s): E83.42 - Hypomagnesemia Status: Acute Assessment and Plan: Magnesium 1.4 today. Will replace again. (9) Acute hypokalemia: Code(s): E87.6 - Hypokalemia Status: Acute Assessment and Plan: Potassium remaining normal range. Will continue to monitor closely now that he is on diuretics.
[2019-09-07 14:00] VITALS: BP 88/60; PULSE 99; RESP 18; TEMP 36.3; O2SAT 100
--- NOTE | 2019-09-07 15:02 | PCNFU ---
Nutrition Follow-Up Complete: Inadequate oral intake related to alcoholism and altered mental status as evidenced by prior admission dietary recall, hospital meal records, and medical dx of malnutrition. Patient will consume greater than 50% of current diet in addition to Ensure Enlive (BID). If goal is not met, nutrition support should be discussed. Goal:Progressing towards goal. Pt current nutrition is Soft and Bite Sized,Level 6/2 gm Na. Nutrition recommendation: Agree Last recorded weight is 62 kg. Bowel Motility: +BM 2/5 Labs Reviewed:Mg 1.4,Cr 0.6 Meds Noted:Megace, Folic Acid,Thiamine, Zinc Additional Notes: Patient more alert today, sitting up in chair. Calorie Count for bkfast /-100% Ensure Compact-220 kcals and 9 gms protein. 25% Pudding, 50% Jello. approx: 350 kcals . Diet Supplements orders were changed to Ensure Enlive which will provide 350 kcals and 20 gms protein. PO intake is encourage. Will monitor intake, weight, and labs. Will follow up in 3 days.
[2019-09-07 22:00] VITALS: BP 99/63; PULSE 102; RESP 16; TEMP 36.7; O2SAT 100
[2019-09-08 06:00] VITALS: BP 91/61; PULSE 103; RESP 16; TEMP 37.3; O2SAT 99
[2019-09-08 06:56] LABS: Blood Urea Nitrogen 11 mg/dL (9-20); Calcium 8.2 mg/dL (8.4-10.2); Carbon Dioxide 17 mmol/L (22-30); Chloride 108 mmol/L (98-107); Estimated CRCL calculation 72 ml/min; Estimated Glomerular Filt Rate > 60; Glucose 78 mg/dL (75-110); Magnesium 1.8 mg/dL (1.6-2.3); Potassium 4.5 mmol/L (3.4-5.0); Sodium 138 mmol/L (137-145)
[2019-09-08] MEDS: MICONAZOLE NITRATE 2% CREAM 30 GM TUBE 1 APPLIC TOPICAL (08:24)
[2019-09-08] MEDS: rifAXIMin 550 MG TABLET PO (08:24)
[2019-09-08] MEDS: EUCERIN CREAM 120 GM JAR 1 APPLIC TOPICAL (08:24)
[2019-09-08] MEDS: ZINC SULFATE 220 MG CAPSULE PO (08:24)
[2019-09-08] MEDS: SODIUM BICARBONATE TAB 325 MG TABLET PO (08:24)
[2019-09-08] MEDS: PANTOPRAZOLE 40 MG TABLET PO (08:24)
[2019-09-08] MEDS: FOLIC ACID 1 MG TABLET PO (08:24)
[2019-09-08] MEDS: THIAMINE HCL 100 MG TABLET PO (08:24)
[2019-09-08] MEDS: MEGESTROL ACETATE (*CHEMO) ORAL SUSP 40 MG/ML SYR 800 MG PO (08:25)
[2019-09-08 08:45] VITALS: BP 96/67
--- NOTE | 2019-09-08 09:27 | PM.DS ---
DS: Diagnosis Admitting Diagnosis Admitting Diagnosis: Anemia, unspecified Discharge Diagnosis (1) Altered mental status: Qualifiers: Altered mental status type: somnolence Qualified Code(s): R40.0 - Somnolence Code(s): R41.82 - Altered mental status, unspecified Status: Acute Assessment and Plan: Most likely result of alcoholism. CT brain 08/29/2019 with no acute changes. Alert but confused with mumbled speech mostly but over time, he had slow improvement. Ammonia level 20. Decided against repeating CT brain since no focal findings and more of a global encephalopathy. Rifaximin ordered. He was not eating much and we did ask family to be here at meal times to see if they can hep him eat. He worked with PT/OT. Patient unable to make decisions at this time. Family now wants patient to be moved to a SNF as this has been arranged. (2) Malnutrition: Qualifiers: Malnutrition type: protein-calorie malnutrition Protein-calorie malnutrition severity: moderate Qualified Code(s): E44.0 - Moderate protein-calorie malnutrition Code(s): E46 - Unspecified protein-calorie malnutrition Status: Acute Assessment and Plan: Weight loss prior to admission. Intake seems to be improving slowly especially if he has help with eating. GI has advanced him to 2 g sodium diet/soft and bite sized. Supplements added. Megace added. Metabolic acidosis noted and treated with Bicarb. (3) Profound anemia: Qualifiers: Anemia type: unspecified type Qualified Code(s): D64.9 - Anemia, unspecified Code(s): D64.9 - Anemia, unspecified Status: Acute Assessment and Plan: Appreciate help from GI. Anemia felt to be related to GI bleed from the Grade II varices and gastritis as seen on EGD on 08/27/2019. Probably chronic anemia as well. Hgb 6.3 on admission but increased to 9.0 after transfusion of 2 units. Hemoglobin remains stable mostly in the 8 range. (4) Esophageal varices in cirrhosis: Code(s): K74.60 - Unspecified cirrhosis of liver; I85.10 - Secondary esophageal varices without bleeding Status: Acute Assessment and Plan: EGD on 08/27/2019 as noted above. Varices were banded. Octreotide started around admission and discontinued on 08/29/2019. Also treated with Protonix. IV ceftriaxone discontinued after 7 day course for prophylaxis for SBP. Continue to monitor. Consider betablocker if BP remains stable. (5) Cirrhosis: Qualifiers: Ascites presence: with ascites Hepatic cirrhosis type: alcoholic cirrhosis Qualified Code(s): K70.31 - Alcoholic cirrhosis of liver with ascites Code(s): K74.60 - Unspecified cirrhosis of liver Status: Acute Assessment and Plan: Result of alcoholism. HepC Ab positive but RNA PCR negative (treated infection?). GI followed along. Paracentesis with removal of only 120mL on 08/28/2019. CT on 09/05/19 showing large volume of ascites and patient underwent repeat paracentesis with removal on 2.9L. TBili 6.5 on admission and trended down to 5. AST 96 and trended down to 85. [place] elevated LFTs somewhat related to alcoholic hepatitis. Treated with Thiamine and folic acid. Lasix and Spironolactone added but dose decreasse due to HoTN. Oral intake improving slowly. (6) Urinary retention: Code(s): R33.9 - Retention of urine, unspecified Status: Acute Assessment and Plan: Jaramillo catheter placed on 08/30/2019 due to urinary retention. UA suspicious but urine culture is negative. Will eventually need voiding trial at the SNF when more mobile (7) Alcoholism: Code(s): F10.20 - Alcohol dependence, uncomplicated Status: Acute Assessment and Plan: Treated with Thaimine and Folate. He had benzodiazepines available. CIWA monitored. No evidence of symptoms or signs of alcohol withdrawal. (8) Hypomagnesemia: Code(s)
--- NOTE | 2019-09-17 14:04 | PC.NURSE ---
Paracentesis cx is negative. Dr. Rhonda heard.
== END 2019-09-08 12:00 | DRG 280 ==
LOC: ANHED 17:29 → ANHIMU 19:54 → ANH3MEDSUR 08-30 23:23
PROVIDERS: Hospitalist; Internal Medicine; Internal Medicine Gastroenterology; Physician Assistant; Admitting Provider Family Medicine; Emergency Provider General Practice; Visit Provider Internal Medicine
PROC: 0DJ08ZZ Inspection of Upper Intestinal Tract, Via Natural or Artificial Opening Endoscopic (ICD-10-PCS; CPT 43235; principal; 2019-08-27 14:30)
DX: K70.31 Alcoholic cirrhosis of liver with ascites (principal); I85.11 Secondary esophageal varices with bleeding; K29.21 Alcoholic gastritis with bleeding; E87.1 Hypo-osmolality and hyponatremia; D62 Acute posthemorrhagic anemia; E87.6 Hypokalemia; R64 Cachexia; Z68.21 Body mass index [BMI] 21.0-21.9, adult; K70.11 Alcoholic hepatitis with ascites; K76.6 Portal hypertension; K31.89 Other diseases of stomach and duodenum; E83.42 Hypomagnesemia; E44.0 Moderate protein-calorie malnutrition; K08.9 Disorder of teeth and supporting structures, unspecified; R33.9 Retention of urine, unspecified; E87.2 Acidosis; G31.2 Degeneration of nervous system due to alcohol
CPT/HCPCS: 36415; 36430; 49083; 51701; 70450; 71045; 74018; 74176; 74177; 80048; 80053; 80069; 80074; 80307; 81001; 82042; 82140; 82607; 82728; 82746; 83540; 83550; 83605; 83690; 83735; 84100; 84157; 85025; 85027; 85046; 85610; 85730; 86703; 86850; 86900; 86901; 86923; 87040; 87070; 87075; 87086; 87205; 87522; 88104; 88108; 88305; 89051; 93005; 96361; 96365; 96375; 97110; 97161; 97165; 97530; 97535; 99285; A9270; C1729; C9113; G0432; J0696; J2060; J2354; J2704; J3411; J3475; J3480; J7030; J7042; J7050; J7120; P9016; Q9967

== ENCOUNTER 2019-09-18 18:54 | Inpatient (IN) | payer OTHER, SELFPAY ==
--- NOTE | ~2019-09-18 | XR_ITS ---
EXAMINATION: XR abdomen/kub 1V DATE: 09/24/2019 20:45 INDICATION: Verification of Dobbhoff tube positioning TECHNIQUE: A supine view of the abdomen was obtained. COMPARISON: 09/22/2019 FINDINGS: Weighted tip of the Dobbhoff type enteric feeding tube projects over the body of the stomach. No dila foreign loops of gas-filled bowel in the visualized abdomen. Small lung volumes with opacities in the luma ateral lower lung zones which on the right appears to include a small right pleural effusion. Heart s ize is normal. IMPRESSION: 1. Tip of a Dobbhoff type enteric feeding tube in the body of the stomach. 2. Small right pleural effusion. 3. Small lung volumes with opacities in bilateral lower lung zones consistent with atelectasis, pneum onia, small pleural effusion or some combination thereof. Reviewed, dictated and finalized at location A. GER FRONT OFFICE IMPRESSION: 1. Tip of a Dobbhoff type enteric feeding tube in the body of the stomach. 2. Small right pleural effusion. 3. Small lung volumes with opacities in bilateral lower lung zones consistent w ith atelectasis, pneumonia, small pleural effusion or some combination thereof.
--- NOTE | ~2019-09-18 | US_ITS ---
EXAMINATION: US paracentesis abd w/image DATE: 09/28/2019 11:54 INDICATION: Ascites. TECHNIQUE: Consent was provided by a family member. The skin was prepped and draped in sterile fashio n. 1% lidocaine was used for local anesthesia. Under ultrasound guidance, a 5 Fr catheter with trocha r was advanced into the ascites in the left lower quadrant. Fluid was aspirated. The catheter was rem sigifredo, and a dressing was applied. There were no immediate complications. FINDINGS: Ultrasound images demonstrate ascites and the catheter within the fluid. IMPRESSION: 1. Successful ultrasound-guided paracentesis yielding 2200 mL of clear, yellow fluid. Reviewed, dictated and finalized at location A. BILITATION CENTER MANAGER
--- NOTE | ~2019-09-18 | CT_ITS ---
EXAMINATION: CT brain wo con DATE: 09/18/2019 20:13 INDICATION: Altered mental status TECHNIQUE: Computed tomography (CT) of the head was performed without intravenous contrast. The dose- length product was 605.33 mGy-cm. Automated exposure control and iterative reconstruction technique w ere employed. COMPARISON: CT dated 08/29/2019 FINDINGS: Stable right frontal and ethmoid sinusitis. There is right frontal mucoperiosteal reaction suggesting chronicity. Generalized atrophy. There are scattered mild periventricular and subcortical white matter changes, most likely related to small vessel ischemic disease (microangiopathy). No vent riculomegaly or midline shift. Basilar cistern is patent. No acute intracranial hemorrhage, infarctio n, mass or mass effect. Mastoids are pneumatized. No depressed skull fractures. No acute intracranial hemorrhage, infarction or mass. IMPRESSION: 1. No acute intracranial abnormality. 2: Right frontal and ethmoid sinusitis, unchanged, likely chronic. 3: Chronic age-related findings. Reviewed, dictated and finalized at location A. CTOR OF MEDICAL REVIEW
--- NOTE | ~2019-09-18 | XR_ITS ---
EXAMINATION: XR abdomen obstructive series DATE: 09/22/2019 11:01 INDICATION: Abdominal distention TECHNIQUE: Upright and supine views of the abdomen were obtained. COMPARISON: 09/20/2019 FINDINGS: There is no free intraperitoneal gas or evidence of bowel obstruction. A feeding tube is in the stomach. Enteric contrast from recent tube check is seen to in the colon. The bowel gas pattern is normal. There are minimal airspace opacities of the lung bases. IMPRESSION: 1. Nonobstructive bowel gas pattern. Reviewed, dictated and finalized at location A. RINTENDENT DRIVERS
--- NOTE | ~2019-09-18 | XR_ITS ---
EXAMINATION: XR chest 1V portable DATE: 09/24/2019 17:28 INDICATION: Shortness of breath. Transient alteration of awareness. TECHNIQUE: frontal view of the chest was obtained. COMPARISON: Chest radiograph dated 09/18/2019 FINDINGS: Weighted tip of a Dobbhoff type enteric feeding tube projects over the body of the stomach. Small seven g volumes with hazy airspace opacities in the bilateral lower lung zones. No pneumothorax. The cardio mediastinal silhouette is normal. IMPRESSION: 1. Small lung volumes with hazy opacities in the bilateral lower lung zones which could represent ate lectasis, pneumonia, small pleural effusions or some combination thereof. Reviewed, dictated and finalized at location A. RAFT MECHANIC IMPRESSION: 1. Small lung volumes with hazy opacities in the bilateral lower lung zones whi ch could represent atelectasis, pneumonia, small pleural effusions or some comb ination thereof.
--- NOTE | ~2019-09-18 | US_ITS ---
EXAMINATION: US paracentesis abd w/image DATE: 09/19/2019 10:45 INDICATION: Ascites. TECHNIQUE: The procedure and its risks and benefits were discussed with the patient. Potential risks discussed included bleeding and infection. The skin was prepped and draped in sterile fashion. 1% lid ocaine was used for local anesthesia. Under ultrasound guidance, a 5 Fr catheter with trochar was adv anced into the ascites in the right lower quadrant. Fluid was aspirated into vacuum bottles. The cath eter was removed, and a dressing was applied. There were no immediate complications. FINDINGS: Ultrasound images demonstrate ascites and the catheter within the fluid. IMPRESSION: 1. Successful ultrasound-guided paracentesis yielding 4500 mL of clear yellow fluid. Reviewed, dictated and finalized at location A. IFIED MEDICAL TECHNICIAN ASSISTANT
--- NOTE | ~2019-09-18 | XR_ITS ---
EXAMINATION: XR fl Dobhoff insert/rad w img EXAM DATE: 09/20/2019 13:20 INDICATION: Feeding tube obstructed. TECHNIQUE: Fluoroscopy used during XR fl Dobhoff insert/rad w img performed by Dr. Mabel montes de oca The DAP for this procedure was 1.4 mGym2. 10 cc of Omnipaque 350 injected through the tube. FINDINGS: Feeding tube which was placed yesterday. This was retracted partly and tip was repositioned with tip in gastric body. This tube was injected with 10 cc of Omnipaque 350 solution which further confirmed position in gastric cardia. Tube is not obstructed. IMPRESSION: Patent Doppler tube in position. Reviewed, dictated and finalized at location A. N WINDER
--- NOTE | ~2019-09-18 | XR_ITS ---
EXAMINATION: XR fl Dobhoff insert/rad w img EXAM DATE: 09/19/2019 14:55 INDICATION: Malnutrition. TECHNIQUE: Fluoroscopy used during XR fl Dobhoff insert/rad w img performed by myself. The DAP for this procedure was 0.4 mGym2. FINDINGS: Dobhoff tube was placed under fluoroscopic guidance. Tube was positioned with tip overlyin g gastric body, some redundancy which could not be straightened out at time of placement. Some tube r edundancy was left, should straighten out and position tip more distally. Patient tolerated the proce dure well. Correlate with procedure note. IMPRESSION: Doppler feeding tube position adequate for use. Reviewed, dictated and finalized at location A. IO DIRECTOR
--- NOTE | ~2019-09-18 | XR_ITS ---
EXAMINATION: XR chest 1V portable EXAM DATE: 09/27/2019 12:26 INDICATION: Increased shortness of breath. TECHNIQUE: Portable AP frontal chest x-ray was obtained. Comparison is made to prior examination from 09/24/2019. FINDINGS: There is ill-defined bibasilar airspace disease, right greater than left, could be atelecta sis given the low lung volume. Pneumonia or Small right pleural effusion not excludable. No pneumotho rax. Cardiomediastinal silhouette is normal. Feeding tube overlying expected position. IMPRESSION: Mild progression in ill-defined right greater than left basilar airspace disease at least partly atelectasis. Clinical correlation. Feeding tube in position. Reviewed, dictated and finalized at location B. AND WATER FILLER IMPRESSION: Mild progression in ill-defined right greater than left basilar air space disease at least partly atelectasis. Clinical correlation. Feeding tube i n position.
--- NOTE | ~2019-09-18 | XR_ITS ---
EXAMINATION: XR chest 1V portable 09/18/2019 20:16 INDICATION: Dyspnea. Transient alteration of awareness. PROCEDURE: AP portable chest COMPARISON: 09/03/2019 FINDINGS: The lungs are clear. The cardiomediastinal silhouette is within normal limits. There are no pleural effusions. There is no pneumothorax suspected. IMPRESSION: 1: NO ACUTE CARDIOPULMONARY DISEASE. Reviewed, dictated and finalized at location A. TING ASSISTANT
[2019-09-18 18:57] VITALS: BP 89/64; PULSE 115; RESP 24; TEMP 36.5; O2SAT 99
--- NOTE | 2019-09-18 19:10 | PC.NURSE ---
Patient received 500mL bolus of NS prior to this RNs arrival. Per EDP Johnathon, do not continue fluid administration.
[2019-09-18 19:14] LABS: Glucose Point of Care 94 (65-105)
[2019-09-18 19:15] VITALS: RESP 18
--- NOTE | 2019-09-18 19:20 | PC.NURSE ---
POC glucose completed by technician [facility].
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
[2019-09-18 19:30] VITALS: BP 109/83; PULSE 112; RESP 23; O2SAT 99
--- NOTE | 2019-09-18 19:35 | ECG_ITS ---
Measurements Intervals Titus Rate: 109 P: 88 NV: 104 QRS: 16 QRSD: 95 T: 78 QT: 312 QTc: 421 Interpretive Statements SINUS TACHYCARDIA WITH SHORT NV INTERVAL BORDERLINE T WAVE ABNORMALITY- ANTEROLAT/INF LEADS BASELINE ARTIFACT- I, II, III, AVR, AVL, AVF, V1-V6 ABNORMAL ECG Electronically Signed On 09-24-2019 19:01:29 [employer] by Lamonte Gu D.O.
[2019-09-18 19:48] LABS: Basophils Absolute Auto 0.1 K/mm3 (0.0-0.1); Basophils Percent Auto 0.4 % (0.2-1.2); Eosinophils Absolute Auto 0.4 K/mm3 (0-0.3); Eosinophils Percent Auto 3.5 % (0-4.4); Hematocrit 27.9 % (42.0-52.0); Hemoglobin 8.8 g/dL (14.0-18.0); Immature Granulocyte Absolute 0.06 K/mm3 (0.00-0.031); Immature Granulocyte Percent A 0.5 % (0-0.5); Lymphocytes Absolute Auto 1.62 K/mm3 (0.9-3.2); Lymphocytes Percent Auto 13.3 % (18.3-44.2); Mean Corpuscular HGB Conc 31.5 g/dl (32-36); Mean Corpuscular Hemoglobin 32.1 pg (26-34); Mean Corpuscular Volume 101.8 fl (80-100); Mean Platelet Volume 10.4 fl (7.4-10.4); Monocytes Absolute Auto 1.2 K/mm3 (0.1-0.6); Monocytes Percent Auto 9.9 % (2.6-8.5); Neutrophils Absolute Auto 8.8 K/mm3 (1.3-6.7); Neutrophils Percent Auto 72.4 % (45.5-73.1); Platelet Count Result 191 k/mm3 (150-375); Red Blood Count 2.74 M/mm3 (4.6-6.20); Red Cell Distribution Width 18.6 % (11.5-14.5); White Blood Count 12.2 K/mm3 (4.5-10.0)
[2019-09-18 19:56] LABS: Alanine Aminotransferase 32 U/L (4-50); Albumin Level 2.8 g/dL (3.5-5.1); Alkaline Phosphatase 224 U/L (38-126); Aspartate Amino Transferase 94 U/L (17-59); Bilirubin,Total 4.3 mg/dL (0.2-1.3); Blood Urea Nitrogen 30 mg/dL (9-20); Calcium 8.4 mg/dL (8.4-10.2); Carbon Dioxide 17 mmol/L (22-30); Chloride 117 mmol/L (98-107); Estimated CRCL calculation 43 ml/min; Estimated Glomerular Filt Rate 44; Glucose 98 mg/dL (75-110); Lipase 91 U/L (23-300); Magnesium 1.8 mg/dL (1.6-2.3); Sodium 150 mmol/L (137-145)
--- NOTE | 2019-09-18 19:56 | PC.NURSE ---
Per EDP Johnathon, no EKG needed.
[2019-09-18 20:02] LABS: Add Urine Microscopic? YES; Appearance Urine Cloudy (Clear); Bacteria Urine Trace /hpf; Bilirubin Urine 1+ (Negative); Blood Urine 3+ (Negative); Color Urine Red (Yellow); Glucose Urine UA Negative (Negative); Hyaline Casts Urine 30-49 /lpf; Ketones Urine Negative (Negative); Leukocyte Esterase Ur Trace LEU/UL (Negative); Mucus Urine Few /lpf; Nitrate Urine Negative (Negative); Protein Urine 2+ mg/dL (Negative); RBC Urine >75 /hpf (0-2); Specific Grav Ur 1.019 (1.001-1.035); Squamous Epithelial Cell Urine Occasional /hpf (Few); WBC Clumps Urine Present /HPF; WBC Urine >75 /hpf
[2019-09-18 20:12] LABS: Budding Yeast Urine Present /hpf
[2019-09-18 20:21] LABS: Ammonia < 9 umol/L (9-30)
[2019-09-18 20:22] LABS: INR 1.7; Prothrombin Time 19.5 Seconds (11.1-14.7)
[2019-09-18 20:41] LABS: Appearance Peritoneal Fluid Hazy (Clear); Color Peritoneal Fluid Yellow (Colorless); Source Peritoneal Fluid Peritoneal Fluid
[2019-09-18 21:09] VITALS: BP 105/71; PULSE 109; RESP 18; O2SAT 100
[2019-09-18] MEDS: LACTATED RINGERS 1,000 ML 999 ML IV CONT (21:11)
[2019-09-18 21:51] LABS: Lactic Acid Reflex 2.3 mmol/L (0.7-2.1)
--- NOTE | 2019-09-18 22:07 | PC.NURSE ---
Per EDP Johnathon via verbal order read-back, patient needs an additional 500ml of Lactated Ringers STAT.
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
[2019-09-18] MEDS: LACTATED RINGERS 500 ML 999 ML IV CONT (22:16)
--- NOTE | 2019-09-18 22:18 | PC.NURSE ---
Patient arrived to ED with perez placed. Per EDP Johnathon, perez catheter should be changed.
[2019-09-18 22:35] LABS: Nucleated Cells Peritoneal Flu 12833 /uL (0-500); RBC Peritoneal Fluid 315 /uL (0-100000)
[2019-09-18 22:36] LABS: Lymphocytes Peritoneal Fluid 19 %; Mesothelial Cells Peritoneal Fluid 30 %; Monocytes Peritoneal Fluid 40 %; Neutrophils Peritoneal Fluid 11 % (0-25)
[2019-09-18 22:57] VITALS: BP 115/77; PULSE 98; RESP 18; O2SAT 98
[2019-09-18 23:25] VITALS: BMI 21.6
[2019-09-18 23:26] VITALS: BP 117/84; PULSE 100; RESP 16; TEMP 36.1; O2SAT 100
[2019-09-18] MEDS: FAMOTIDINE 20 MG/2 ML VIAL IV PUSH (23:26)
[2019-09-18] MEDS: SODIUM CHLORIDE 0.9% IV 1,000 ML 100 ML IV CONT (23:31)
[2019-09-18 23:44] LABS: Glucose Point of Care 90 (65-105)
[2019-09-19] MEDS: DEXTROSE 5% 1,000 ML 1,000 ML 100 ML IV CONT ×2 (00:09→09:31)
--- NOTE | 2019-09-19 00:27 | ADMGEN ---
This patient, Tonya Baumann, was admitted to Medical Room 347-01. Patient/family oriented to hospital policies and general routines including ID bracelet, bed and alarms, visiting hours, pain management, procedures, bathroom and other care routines, personal items, smoking policy, room service/diet, and visiting hours. Valuables list has been completed. Information on how to activate the Rapid Response Team has been discussed. Patient/Family are encouraged to report perceived risks to care and to ask questions if they do not understand what they are told or what they should do.
[2019-09-19 00:38] LABS: Reflex Lactic Acid Yes or No Add Lactic
[2019-09-19 00:52] LABS: Blood Urea Nitrogen 28 mg/dL (9-20); Calcium 8.1 mg/dL (8.4-10.2); Carbon Dioxide 20 mmol/L (22-30); Chloride 118 mmol/L (98-107); Estimated CRCL calculation 45 ml/min; Estimated Glomerular Filt Rate 49; Glucose 97 mg/dL (75-110); Magnesium 1.6 mg/dL (1.6-2.3); Potassium 4.1 mmol/L (3.4-5.0); Sodium 150 mmol/L (137-145)
[2019-09-19 05:42] VITALS: BP 120/71; PULSE 92; RESP 17; TEMP 36.2; O2SAT 96
[2019-09-19 06:13] LABS: Blood Urea Nitrogen 30 mg/dL (9-20); Calcium 8.4 mg/dL (8.4-10.2); Carbon Dioxide 7 mmol/L (22-30); Chloride 123 mmol/L (98-107); Estimated CRCL calculation 41 ml/min; Estimated Glomerular Filt Rate 44; Glucose 107 mg/dL (75-110); Magnesium 1.7 mg/dL (1.6-2.3); Potassium 5.3 mmol/L (3.4-5.0); Sodium 151 mmol/L (137-145)
[2019-09-19 09:16] LABS: Basophils Absolute Auto 0.1 K/mm3 (0.0-0.1); Basophils Percent Auto 0.6 % (0.2-1.2); Eosinophils Absolute Auto 0.6 K/mm3 (0-0.3); Eosinophils Percent Auto 5.1 % (0-4.4); Hematocrit 29.3 % (42.0-52.0); Hemoglobin 8.9 g/dL (14.0-18.0); Immature Granulocyte Absolute 0.05 K/mm3 (0.00-0.031); Immature Granulocyte Percent A 0.4 % (0-0.5); Lymphocytes Absolute Auto 1.26 K/mm3 (0.9-3.2); Lymphocytes Percent Auto 10.6 % (18.3-44.2); Mean Corpuscular HGB Conc 30.4 g/dl (32-36); Mean Corpuscular Hemoglobin 31.2 pg (26-34); Mean Corpuscular Volume 102.8 fl (80-100); Monocytes Absolute Auto 1.1 K/mm3 (0.1-0.6); Monocytes Percent Auto 9.2 % (2.6-8.5); Neutrophils Absolute Auto 8.8 K/mm3 (1.3-6.7); Neutrophils Percent Auto 74.1 % (45.5-73.1); Platelet Count Result 164 k/mm3 (150-375); Red Blood Count 2.85 M/mm3 (4.6-6.20); White Blood Count 11.9 K/mm3 (4.5-10.0)
[2019-09-19] MEDS: FAMOTIDINE 20 MG/2 ML VIAL IV PUSH ×2 (09:32→22:22)
[2019-09-19 09:39] VITALS: PULSE 64; RESP 14; O2SAT 95
[2019-09-19 10:07] VITALS: BMI 21.6
[2019-09-19 11:25] LABS: Appearance Peritoneal Fluid Clear (Clear); Color Peritoneal Fluid Yellow (Colorless); Nucleated Cells Peritoneal Flu 94 /uL (0-500); RBC Peritoneal Fluid 63 /uL (0-100000); Source Peritoneal Fluid Peritoneal Fluid
[2019-09-19 11:26] LABS: Lymphocytes Peritoneal Fluid 21 %; Mesothelial Cells Peritoneal Fluid 2 %; Monocytes Peritoneal Fluid 68 %; Neutrophils Peritoneal Fluid 9 % (0-25)
--- NOTE | 2019-09-19 12:54 | WPDGICN ---
Assessment and Plan Assessment and plan (1) Spontaneous bacterial peritonitis: Code(s): K65.2 - Spontaneous bacterial peritonitis Status: Acute Assessment and Plan: diagnostic paracentesis performed in ER yesterday consistent with SBP, today repeat paracentesis much better (normalization of nucleated cells) continue with iv rocephin, will start on iv albumin, discontinue diuretics. he is sick and his prognosis is guarded (2) Ascites due to alcoholic cirrhosis: Code(s): K70.31 - Alcoholic cirrhosis of liver with ascites Status: Chronic Assessment and Plan: hold diuretics in setting of sbp and ANALI MELD score 25, poor prognosis supportive care consider DHT placement for feeding. (3) Sepsis: Qualifiers: Sepsis acute organ dysfunction status: unspecified Sepsis type: sepsis due to unspecified organism Qualified Code(s): A41.9 - Sepsis, unspecified organism Code(s): A41.9 - Sepsis, unspecified organism Status: Acute Assessment and Plan: most likely source SBP, he could also have uti. (4) ANALI (acute kidney injury): Code(s): N17.9 - Acute kidney failure, unspecified Status: Acute Assessment and Plan: discontinue diuretics, start iv albumin, will add octreotide. Differential ATN, dehydration, HRS, etc (5) Catheter-associated urinary tract infection: Qualifiers: Encounter type: initial encounter Indwelling urinary catheter type: indwelling urethral catheter Qualified Code(s): T83.511A - Infection and inflammatory reaction due to indwelling urethral catheter, initial encounter; N39.0 - Urinary tract infection, site not specified Code(s): T83.511A - Infection and inflammatory reaction due to indwelling urethral catheter, initial encounter; N39.0 - Urinary tract infection, site not specified Status: Acute (6) Elevated lactic acid level: Code(s): R79.89 - Other specified abnormal findings of blood chemistry Status: Acute (7) Metabolic acidosis with increased anion gap and accumulation of organic acids: Code(s): E87.2 - Acidosis Status: Acute (8) Hypernatremia: Code(s): E87.0 - Hyperosmolality and hypernatremia Status: Acute Assessment and Plan: affecting also his mental status (9) Leukocytosis: Qualifiers: Leukocytosis type: unspecified Qualified Code(s): D72.829 - Elevated white blood cell count, unspecified Code(s): D72.829 - Elevated white blood cell count, unspecified Status: Acute (10) Malnutrition: Qualifiers: Malnutrition type: protein-calorie malnutrition Protein-calorie malnutrition severity: moderate Qualified Code(s): E44.0 - Moderate protein-calorie malnutrition Code(s): E46 - Unspecified protein-calorie malnutrition Status: Chronic (11) Encephalopathy: Code(s): G93.40 - Encephalopathy, unspecified Status: Acute Assessment and Plan: probably multifactorial (sepsis, hypernatremia, anali, also could be liver encephalopathy- resume xifaxan and may need lactulose) GI Consult Note Consult date/time: 09/19/19 12:54 reason for consult: decompensated cirrhosis, ascites, encephalopathy HPI: Tonya Baumann is a 48 year old male who I met him during recent hospitalization when he was admitted with decompensated alcoholic cirrhosis (he had ascites that required paracentesis, also banding of non-bleeding esophageal varices, anemia, malnutrition), he was discharged to a custodial about 10 days ago. He is somnolent and can not get history from him. Based on records, family reports that he has been very somnolent while at [place] sleeping all the time and poorly responsive, also increased abdominal distension and decreased oral intake of food and fluids. Yesterday in ER had a diagnostic paracentesis that was consistent with spontaneous bacterial peritonitics (nucleated cell [id number]) and started on rocephing, to
--- NOTE | 2019-09-19 13:29 | PCNSR ---
On 09/19/19, the student,Radha Henry, provided care and completed [facility] documentation on this patient. I have reviewed the student's documentation and agree with the findings.
--- NOTE | 2019-09-19 13:57 | PCDIET ---
Notified of pt's need for EN formula after DHT placement. Recommend Jevity 1.5 starting at 30mls/hr and increase by 10mls every 4hrs reaching a goal rate of 60mls/hr over 22hrs, providing 1980kcals, 84g pro, and 1003ml free water. Recommend 60ml water flushes every 4hrs. Initial slow rate recommended as pt's oral intake has been suboptimal for several weeks.
[2019-09-19 14:00] VITALS: BP 96/62; PULSE 68; RESP 14; TEMP 36.5; O2SAT 97
[2019-09-19 14:12] LABS: Free T4 Free Thyroxine Reflex 2.02 ng/dL (0.78-2.19)
[2019-09-19] MEDS: ALBUMIN HUMAN 25% 25 GM/100 ML 200 ML IVPB ×2 (14:57→22:51)
[2019-09-19 15:55] LABS: Total Triiodothyronine (T3) 0.71 NG/ML (0.97-1.69)
--- NOTE | 2019-09-19 16:36 | PM.IMPN ---
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 Poor prognosis (2) Leukocytosis: Qualifiers: Leukocytosis type: unspecified Qualified Code(s): D72.829 - Elevated white blood cell count, unspecified Code(s): D72.829 - Elevated white blood cell count, unspecified Status: Acute Assessment and Plan: SBp started on iv rocephin and iv albumin (3) Catheter-associated urinary tract infection: Qualifiers: Indwelling urinary catheter type: indwelling urethral catheter Encounter type: initial encounter Qualified Code(s): T83.511A - Infection and inflammatory reaction due to indwelling urethral catheter, initial encounter; N39.0 - Urinary tract infection, site not specified Code(s): T83.511A - Infection and inflammatory reaction due to indwelling urethral catheter, initial encounter; N39.0 - Urinary tract infection, site not specified Status: Acute Assessment and Plan: Continue IV antibiotics, pt has perez insitu incontinent of urine and feaces presently (4) Acute renal failure: Qualifiers: Acute renal failure type: unspecified Qualified Code(s): N17.9 - Acute kidney failure, unspecified Code(s): N17.9 - Acute kidney failure, unspecified Status: Acute Assessment and Plan: Likely secondary to dehydration. Light IV hydration overnight as a fluid challenge. Monitor renal function. Avoid nephrotoxin agents. Renally dose medications. (5) Elevated lactic acid level: Code(s): R79.89 - Other specified abnormal findings of blood chemistry Status: Acute Assessment and Plan: SEcondary to SBP (6) Ascites due to alcoholic cirrhosis: Code(s): K70.31 - Alcoholic cirrhosis of liver with ascites Status: Chronic Assessment and Plan: therapeutic paracentesis in am. (7) Cirrhosis: Code(s): K74.60 - Unspecified cirrhosis of liver Status: Chronic Assessment and Plan: MELD score 25-the patient has a 20% mortality within the next 3 months given his meld score. Avoid hepatotoxic drugs such as NSAIDs and acetaminophen. Encouraged adequate nutrition. dubhoff placed pt will start tube feeds tomorrow. (8) Macrocytic anemia: Code(s): D53.9 - Nutritional anemia, unspecified Status: Chronic Assessment and Plan: Monitor CBCD (9) Hypernatremia: Code(s): E87.0 - Hyperosmolality and hypernatremia Status: Acute Assessment and Plan: Continue D5W and monitor BMP closely to avoid overcorrecting. (10) Metabolic acidosis with increased anion gap and accumulation of organic acids: Code(s): E87.2 - Acidosis Status: Acute Assessment and Plan: Likely secondary to acute renal failure. (11) Malnutrition: Qualifiers: Malnutrition type: protein-calorie malnutrition Protein-calorie malnutrition severity: moderate Qualified Code(s): E44.0 - Moderate protein-calorie malnutrition Code(s): E46 - Unspecified protein-calorie malnutrition Status: Chronic Assessment and Plan: Encourage nutrition. Consider nutrition consult tomorrow Subjective Date/time seen: 09/19/19 16:36 Interval history: 48yo male with alcoholic cirrhosis here with AMS, found to have SBP seen by GI started on IV abx, albumin and fluids, rifaximin. Had 4 liters drained today and some fluid drained yesterday in ED . Pt very unwell and in abdominal pain Review of Systems Review of Systems: ROS unobtainable: unobtainable due to mental status Exam Const: General: ill appearing chronically, lethargic, patient obtunded and other (jaundiced++ ) Nu
[2019-09-19 21:11] VITALS: BP 90/64; PULSE 79; RESP 16; TEMP 36.1; O2SAT 100
[2019-09-19 22:25] VITALS: PULSE 79; RESP 16; O2SAT 100
[2019-09-20] MEDS: ALBUMIN HUMAN 25% 25 GM/100 ML 200 ML IVPB ×2 (05:10→14:35)
[2019-09-20 05:51] LABS: Basophils Percent Auto 0.6 % (0.2-1.2); Eosinophils Absolute Auto 0.3 K/mm3 (0-0.3); Eosinophils Percent Auto 5.3 % (0-4.4); Hematocrit 23.8 % (42.0-52.0); Hemoglobin 7.4 g/dL (14.0-18.0); Immature Granulocyte Absolute 0.03 K/mm3 (0.00-0.031); Immature Granulocyte Percent A 0.5 % (0-0.5); Lymphocytes Absolute Auto 0.87 K/mm3 (0.9-3.2); Lymphocytes Percent Auto 13.6 % (18.3-44.2); Mean Corpuscular HGB Conc 31.1 g/dl (32-36); Mean Corpuscular Hemoglobin 31.2 pg (26-34); Mean Corpuscular Volume 100.4 fl (80-100); Mean Platelet Volume 10.5 fl (7.4-10.4); Monocytes Absolute Auto 0.6 K/mm3 (0.1-0.6); Monocytes Percent Auto 9.7 % (2.6-8.5); Neutrophils Absolute Auto 4.5 K/mm3 (1.3-6.7); Neutrophils Percent Auto 70.3 % (45.5-73.1); Platelet Count Result 131 k/mm3 (150-375); Red Blood Count 2.37 M/mm3 (4.6-6.20); Red Cell Distribution Width 17.3 % (11.5-14.5); White Blood Count 6.4 K/mm3 (4.5-10.0)
[2019-09-20 05:58] LABS: Alanine Aminotransferase 20 U/L (4-50); Albumin Level 2.8 g/dL (3.5-5.1); Alkaline Phosphatase 102 U/L (38-126); Aspartate Amino Transferase 50 U/L (17-59); Bilirubin,Total 2.3 mg/dL (0.2-1.3); Blood Urea Nitrogen 23 mg/dL (9-20); Calcium 8.3 mg/dL (8.4-10.2); Carbon Dioxide 22 mmol/L (22-30); Chloride 112 mmol/L (98-107); Estimated CRCL calculation 57 ml/min; Estimated Glomerular Filt Rate > 60; Glucose 115 mg/dL (75-110); Potassium 3.3 mmol/L (3.4-5.0); Sodium 147 mmol/L (137-145)
[2019-09-20 06:00] VITALS: BP 100/66; PULSE 78; RESP 12; TEMP 36.1; O2SAT 97
[2019-09-20 06:02] LABS: INR 1.9; Prothrombin Time 21.4 Seconds (11.1-14.7)
[2019-09-20] MEDS: FAMOTIDINE 20 MG/2 ML VIAL IV PUSH ×2 (09:19→22:44)
[2019-09-20] MEDS: DEXTROSE 5% 1,000 ML 1,000 ML 100 ML IV CONT (09:29)
--- NOTE | 2019-09-20 12:17 | PM.IMPN ---
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 Seen by Gi started on IV abx, albumin and fluids, rifaximin. (2) Leukocytosis: Qualifiers: Leukocytosis type: unspecified Qualified Code(s): D72.829 - Elevated white blood cell count, unspecified Code(s): D72.829 - Elevated white blood cell count, unspecified Status: Acute Assessment and Plan: Likely secondary to SBP. (3) Catheter-associated urinary tract infection: Qualifiers: Indwelling urinary catheter type: indwelling urethral catheter Encounter type: initial encounter Qualified Code(s): T83.511A - Infection and inflammatory reaction due to indwelling urethral catheter, initial encounter; N39.0 - Urinary tract infection, site not specified Code(s): T83.511A - Infection and inflammatory reaction due to indwelling urethral catheter, initial encounter; N39.0 - Urinary tract infection, site not specified Status: Acute Assessment and Plan: Continue IV antibiotics, pt has perez catheter secondary to urinary incontinence, continue to watch UO.. (4) Acute renal failure: Qualifiers: Acute renal failure type: unspecified Qualified Code(s): N17.9 - Acute kidney failure, unspecified Code(s): N17.9 - Acute kidney failure, unspecified Status: Acute Assessment and Plan: Fluids pt benefits from tube feeds (5) Elevated lactic acid level: Code(s): R79.89 - Other specified abnormal findings of blood chemistry Status: Acute Assessment and Plan: . (6) Ascites due to alcoholic cirrhosis: Code(s): K70.31 - Alcoholic cirrhosis of liver with ascites Status: Chronic Assessment and Plan: therapeutic paracentesis twice in hospital (7) Cirrhosis: Code(s): K74.60 - Unspecified cirrhosis of liver Status: Chronic Assessment and Plan: MELD score 25. Family aware of poor prognosis. want all active treatments and full code. (8) Macrocytic anemia: Code(s): D53.9 - Nutritional anemia, unspecified Status: Chronic Assessment and Plan: Likely secondary to nutritional deficits. Continue to monitor CBC. STart tube feeds dobhoff placed. (9) Hypernatremia: Code(s): E87.0 - Hyperosmolality and hypernatremia Status: Acute Assessment and Plan: Continue D5W (10) Metabolic acidosis with increased anion gap and accumulation of organic acids: Code(s): E87.2 - Acidosis Status: Acute Assessment and Plan: Watch kidney function (11) Malnutrition: Qualifiers: Malnutrition type: protein-calorie malnutrition Protein-calorie malnutrition severity: moderate Qualified Code(s): E44.0 - Moderate protein-calorie malnutrition Code(s): E46 - Unspecified protein-calorie malnutrition Status: Chronic Assessment and Plan: StartTUBE feeds continue albumin Subjective Date/time seen: 09/20/19 12:17 Interval history: 48yo male with alcoholic cirrhosis here with AMS, found to have SBP seen by GI started on IV abx, albumin and fluids, rifaximin. Had 4 liters drained yesterday and some fluid drained in ED . Pt very unwell and in abdominal pain. Poor prognosis as per GI MD, discussed with family at bedside about pts condition. Advanced cirrhosis as the patient has evidence of significant ascites, acute renal failure, and esophageal varices. Continue treatment, add tube feeds through dobhoff today for nutritional support. MELD score is high. Review of Systems Review of Systems: ROS unobtainable: unobtainable due to mental status Exam Const: General: ill appearing chronic
--- NOTE | 2019-09-20 12:44 | PCDIET ---
Nutrition Follow-Up Complete: Inadequate energy intake related to encephalopathy as evidenced by medical dx of malnutrition and pt's family report of low oral intake. Pt Total intake will meet estimated nutrition needs Goal: New goal initiated. Pt current nutrition is Jevity 1.5 at 10ml/hr with goal of 30ml/hr day one. Nutrition recommendation: Agree Last recorded weight is 68.3 kg. Bowel Motility: Labs Reviewed: K 3.3, Na 147, Glucose 115, Albumin 2.8 Meds Noted:Albumin, Zofran, Xifaxin Additional Notes: Pt with dobhoff in place. Spoke with family and MD regarding EN. Jevity 1.5 starting today at 10ml/hr, advancing to goal of 30ml/hr day one due to malnourished state. Recommend monitoring electrolytes for tolerance, and if stable, advancing 10ml/hr to goal of 60ml/hr day two. Recommend PO4 lab. At goal of 60ml/hr for day two over 22hrs EN will provide 1980kcals, 84g pro, and 1003ml free water. Recommend standard water flush of 30ml q 4hrs while other fluids infusing due to edema. When other drips removed, pt would benefit from 60ml water flushes every 4hrs. We will continue to monitor every T/F for EN tolerance.
[2019-09-20 14:00] VITALS: BP 107/67; PULSE 70; RESP 16; TEMP 36.4; O2SAT 99
--- NOTE | 2019-09-20 17:38 | WPDGIPROGNO ---
Progress Note: A&P Assessment and Plan (1) Spontaneous bacterial peritonitis: Code(s): K65.2 - Spontaneous bacterial peritonitis Status: Acute Assessment and Plan: on treatment, on iv abx and also iv albumin (2) ANALI (acute kidney injury): Code(s): N17.9 - Acute kidney failure, unspecified Status: Acute Assessment and Plan: improving, holding diuretics and getting iv albumin (3) Hypernatremia: Code(s): E87.0 - Hyperosmolality and hypernatremia Status: Acute (4) Encephalopathy: Code(s): G93.40 - Encephalopathy, unspecified Status: Acute Assessment and Plan: multifactorial, use lactulose to get 2-3 bm/d (5) Cirrhosis: Qualifiers: Hepatic cirrhosis type: alcoholic cirrhosis Ascites presence: with ascites Qualified Code(s): K70.31 - Alcoholic cirrhosis of liver with ascites Code(s): K74.60 - Unspecified cirrhosis of liver Status: Acute Assessment and Plan: poor prognosis, continue supportive care still lethargic now on tube feeding by DHT (6) Malnutrition: Qualifiers: Malnutrition type: protein-calorie malnutrition Protein-calorie malnutrition severity: moderate Qualified Code(s): E44.0 - Moderate protein-calorie malnutrition Code(s): E46 - Unspecified protein-calorie malnutrition Status: Chronic Subjective Date/time seen: 09/20/19 17:38 Interval history: still lethargic, now getting tube feeding by DHT Exam Const: Other: looks sick, cachectic HENMT: General nose exam: no epistaxis Other: DHT in place Eyes: General: appearance normal, both eyes and all related structures Neck: Neck: No no JVD Resp: Auscultation: clear to auscultation bilaterally Cardio: Rate: regular rate GI: Inspection: non-distended GI Palp: Yes Soft to palpation, No Tenderness to palpation present (GI) and Yes Other GI palpation findings present (recent paracentesis and no more obvious fluid wave) Urinary Catheter: Urinary Catheter: patent and draining Skin: General skin exam: no erythema Neuro: Cognition (Neuro): abnormal cognition Psych: Other: lethargic Objective Data Vital Signs Vital Signs: Vital Signs - 24 hr 09/19/19 21:11 09/19/19 22:25 09/20/19 06:00 Temperature 97 F L 97 F L Pulse Rate 79 79 78 Respiratory Rate 16 16 12 Blood Pressure 90/64 L 100/66 Pulse Oximetry 100 100 97 09/20/19 14:00 Temperature 97.5 F L Pulse Rate 70 Respiratory Rate 16 Blood Pressure 107/67 Pulse Oximetry 99 Intake/Output Intake/Output: Intake & Output 09/17/19 09/18/19 09/19/19 09/20/19 23:59 23:59 23:59 23:59 Intake Total 1550 1292 1795 Output Total 4900 350 Balance 1550 -3608 1445 Meds/Results Medications: Active Medications Generic Name Dose Route Start Last Admin Trade Name Freq PRN Reason Stop Dose Admin Famotidine 20 mg 09/18/19 21:00 09/20/19 09:19 Pepcid Iv IV PUSH 20 mg Q12HR BHANU Administration Ceftriaxone Sodium/Dextrose 1 gm in 50 mls @ 100 mls/hr 09/19/19 21:00 09/19/19 22:52 Rocephin 1 Gm/D5w 50 Ml IVPB Infused Q24H BHANU Infusion Dextrose 1,000 mls @ 70 mls/hr 09/18/19 23:45 09/20/19 16:32 Dextrose 5% 1,000 Ml IV CONT 70 mls/hr .[id number] BHANU Infusion Ondansetron HCl 4 mg 09/18/19 21:41 Zofran Inj IV PUSH Q4H PRN Nausea Rifaximin 550 mg 09/19/19 21:00 09/20/19 14:35 Xifaxan PO Not Given Q12HR BHANU Radiology Results: ITS Impressions Chest X-Ray 09/18/19 20:23 IMPRESSION: 1: NO ACUTE CARDIOPULMONARY DISEASE. Head CT 09/18/19 20:25 IMPRESSION: 1. No acute intracranial abnormality. 2: Right frontal and ethmoid sinusitis, unchanged, likely chronic. 3: Chronic age-related findings. Paracentesis Ultrasound 09/19/19 12:29 IMPRESSION: 1. Successful ultrasound-guided paracentesis yielding 4500 mL of clear yellow fluid. Tube Placement 09/20/19 14:00 IMPRESSION:
[2019-09-20 22:00] VITALS: BP 92/58; PULSE 85; RESP 16; TEMP 36.2; O2SAT 100
[2019-09-20 22:45] VITALS: PULSE 85; RESP 16; O2SAT 100
[2019-09-20 23:07] LABS: Glucose Point of Care 122 (65-105)
[2019-09-21] MEDS: DEXTROSE 5% 1,000 ML 1,000 ML 70 ML IV CONT ×2 (01:20→15:52)
[2019-09-21 06:00] VITALS: BP 95/54; PULSE 67; RESP 12; TEMP 36.1; O2SAT 100
[2019-09-21 06:05] LABS: Alanine Aminotransferase 21 U/L (4-50); Albumin Level 3.4 g/dL (3.5-5.1); Alkaline Phosphatase 122 U/L (38-126); Aspartate Amino Transferase 74 U/L (17-59); Bilirubin Direct 0.2 mg/dL (0-0.3); Bilirubin,Total 2.6 mg/dL (0.2-1.3); Blood Urea Nitrogen 20 mg/dL (9-20); Calcium 8.6 mg/dL (8.4-10.2); Carbon Dioxide 20 mmol/L (22-30); Chloride 108 mmol/L (98-107); Estimated CRCL calculation 66 ml/min; Estimated Glomerular Filt Rate > 60; Glucose 110 mg/dL (75-110); Potassium 3.8 mmol/L (3.4-5.0); Sodium 146 mmol/L (137-145)
[2019-09-21 06:07] LABS: INR 1.8; Prothrombin Time 20.3 Seconds (11.1-14.7)
[2019-09-21 06:50] LABS: Hematocrit 25.4 % (42.0-52.0); Hemoglobin 8.1 g/dL (14.0-18.0); Immature Platelet Fraction Pct 4.2 % (0.9-11.2); Mean Corpuscular HGB Conc 31.9 g/dl (32-36); Mean Corpuscular Hemoglobin 31.6 pg (26-34); Mean Corpuscular Volume 99.2 fl (80-100); Mean Platelet Volume 10.7 fl (7.4-10.4); Platelet Count Result 121 k/mm3 (150-375); Red Blood Count 2.56 M/mm3 (4.6-6.20); Red Cell Distribution Width 17.3 % (11.5-14.5); White Blood Count 9.1 K/mm3 (4.5-10.0)
[2019-09-21 07:52] LABS: Glucose Peritoneal Fluid 113 mg/dL; Total Protein Peritoneal Fluid <3.0 g/dL
[2019-09-21 08:47] VITALS: PULSE 72; RESP 16; O2SAT 97
[2019-09-21] MEDS: FAMOTIDINE 20 MG/2 ML VIAL IV PUSH ×2 (08:47→20:22)
--- NOTE | 2019-09-21 10:43 | PCDIET ---
Nutrition Follow-Up Complete: Inadequate energy intake related to encephalopathy as evidenced by medical dx of malnutrition and pt's family report of low oral intake. Pt tolerance and acceptance of diet order when advanced Goal partially met. Pt tolerated initial rate of 30mls/hr Pt current nutrition: Pt is receiving 45mls/hr of Jevity 1.5. Nutrition recommendation: Recommend continuation of Jevity 1.5 and gradual advancement off rate. Discussed with nurse the plan to increase rate. This morning she bumped rate up to 45mls/hr with slow increases throughout the day to meet goal of 60mls/day, which is appropriate. Recommend weight be taken and recorded as 4L fluid removed 09/19. Last recorded weight is 68.3 kg. Bowel Motility:+BM 09/18 Labs Reviewed:Hgb(8.1), Alb(3.4), Na(146), K(3.8), Cr(1.20), Glu(110), Bilirubin(2.6), AST(74), ALT(21) Meds Noted:Zofran, Pepcid, xifaxen Additional Notes: Briefly spoke with pt's family, they say he is more alert than yesterday. Pt is tolerating feedings well. Will monitor labs. Will follow up T/F.
[2019-09-21 12:21] LABS: LDH Peritoneal Fluid 36 U/L (<63)
[2019-09-21 12:25] LABS: Glucose Point of Care 105 (65-105)
--- NOTE | 2019-09-21 12:26 | PM.IMPN ---
Progress Note: A&P Assessment and Plan (1) Spontaneous bacterial peritonitis: Code(s): K65.2 - Spontaneous bacterial peritonitis Status: Acute Assessment and Plan: Patient with WBC of 12,800 on initial tap (only obtained 20ml) on . Repeat therapeutic tap with 94 WBC (4.5L removed) on 09/19/19. Unclear how WBC decreased so dramatically. Continue IV abx. Patient appears to be improving. Appreciate GI input. (2) Encephalopathy: Code(s): G93.40 - Encephalopathy, unspecified Status: Acute Assessment and Plan: Suspect patient with acute on chronic encephalopathy. 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 Acute process related to the dehydration, ANALI and SBP. Continue rifaximin. (3) Catheter-associated urinary tract infection: Qualifiers: Encounter type: initial encounter Indwelling urinary catheter type: indwelling urethral catheter Qualified Code(s): T83.511A - Infection and inflammatory reaction due to indwelling urethral catheter, initial encounter; N39.0 - Urinary tract infection, site not specified Code(s): T83.511A - Infection and inflammatory reaction due to indwelling urethral catheter, initial encounter; N39.0 - Urinary tract infection, site not specified Status: Acute Assessment and Plan: Patient discharged with [place] last admission. UA consistent with UTI. BCx NGTD. UCx growing yeast probably a contaminant or colonizer. Curently on Rocephin for SBP. Continue the same. (4) Acute renal failure: Qualifiers: Acute renal failure type: unspecified Qualified Code(s): N17.9 - Acute kidney failure, unspecified Code(s): N17.9 - Acute kidney failure, unspecified Status: Acute Assessment and Plan: Cr 2.0 on admission. With rehydration, pateitn's Cr down to 1.2. Continue fluids and TF. (5) Elevated lactic acid level: Code(s): R79.89 - Other specified abnormal findings of blood chemistry Status: Acute Assessment and Plan: Related to the SBP. Continue abx and IVF. (6) Ascites due to alcoholic cirrhosis: Code(s): K70.31 - Alcoholic cirrhosis of liver with ascites Status: Chronic Assessment and Plan: Diagnostic paracentesis in the ER to make the diagnosis of SBP. Patient had therapeutic paracentesis on 09/19/19 with removal of 4.5L. Continue to monitor. (7) Cirrhosis: Code(s): K74.60 - Unspecified cirrhosis of liver Status: Chronic Assessment and Plan: MELD score 25. Family aware of poor prognosis. Discussed with family in the room. Patient remains a full code. (8) Macrocytic anemia: Code(s): D53.9 - Nutritional anemia, unspecified Status: Chronic Assessment and Plan: Hgb low but stable in the 8 range. Likely secondary to nutritional deficits and liver failure. Continue to monitor CBC. (9) Hypernatremia: Code(s): E87.0 - Hyperosmolality and hypernatremia Status: Acute Assessment and Plan: Sodium to 151 but trending down now to 146 today. Continue D5W for one more day. (10) Metabolic acidosis with increased anion gap and accumulation of organic acids: Code(s): E87.2 - Acidosis Status: Acute Assessment and Plan: AG 18 with Bicarb 20 today. Lactic acid normal on 09/19. Urine ketones negative. Continue TF with free water (Na level trending down with the IVF). (11) Malnutrition: Qualifiers: Malnutrition type: protein-calorie malnutrition Protein-calorie malnutrition severity: moderate Qualified Code(s): E44.0 - Moderate protein-calorie malnutrition Code(s): E46 - Unspecified protein-calorie malnutrition Status: Chronic Assessment and Plan: Tolerating TF. Will need active directory engineer solution for his malnutrition. (12) Leukocytosis: Qualifiers: Leukocytosis type: unspecified Qualified
[2019-09-21 14:00] VITALS: BP 99/56; PULSE 72; RESP 16; TEMP 36.6; O2SAT 97
--- NOTE | 2019-09-21 14:57 | PCNSR ---
On 09/21/19, the student, Isa Henry, provided care and completed [facility] documentation on this patient. I have reviewed the student's documentation and agree with the findings.
[2019-09-21 17:16] LABS: Glucose Point of Care 98 (65-105)
--- NOTE | 2019-09-21 19:12 | WPDGIPROGNO ---
Progress Note: A&P Assessment and Plan (1) Spontaneous bacterial peritonitis: Code(s): K65.2 - Spontaneous bacterial peritonitis Status: Acute Assessment and Plan: on treatment, on iv abx and also iv albumin (2) Cirrhosis: Qualifiers: Ascites presence: with ascites Hepatic cirrhosis type: alcoholic cirrhosis Qualified Code(s): K70.31 - Alcoholic cirrhosis of liver with ascites Code(s): K74.60 - Unspecified cirrhosis of liver Status: Acute Assessment and Plan: poor prognosis, continue supportive care tube feeding at target by [facility] MELD score better today- 18 (3) ANALI (acute kidney injury): Code(s): N17.9 - Acute kidney failure, unspecified Status: Acute Assessment and Plan: improving, holding diuretics, s/p iv albumin (4) Hypernatremia: Code(s): E87.0 - Hyperosmolality and hypernatremia Status: Acute Assessment and Plan: better with medical rx, nutrition and fluids (5) Encephalopathy: Code(s): G93.40 - Encephalopathy, unspecified Status: Acute Assessment and Plan: multifactorial (had sbp, anali and hypernatremia) (6) Malnutrition: Qualifiers: Malnutrition type: protein-calorie malnutrition Protein-calorie malnutrition severity: moderate Qualified Code(s): E44.0 - Moderate protein-calorie malnutrition Code(s): E46 - Unspecified protein-calorie malnutrition Status: Chronic Assessment and Plan: continue with tube feeding by [facility] Subjective Date/time seen: 09/21/19 19:12 Interval history: he is tolerating tube feeding by [facility], more awake today Exam Const: Other: looks sick, cachectic HENMT: General nose exam: no epistaxis Other: DHT in place, tube feeding running. Eyes: General: appearance normal, both eyes and all related structures Neck: Neck: No no JVD Resp: Auscultation: clear to auscultation bilaterally Cardio: Rate: regular rate GI: Inspection: non-distended GI Palp: Yes Soft to palpation and No Tenderness to palpation present (GI) Auscultation: normal bowel sounds Urinary Catheter: Urinary Catheter: patent and draining Skin: General skin exam: no erythema Neuro: Cognition (Neuro): abnormal cognition Other: awake but he is not following commands Psych: Other: lethargic Objective Data Vital Signs Vital Signs: Vital Signs - 24 hr 09/20/19 22:00 09/20/19 22:45 09/21/19 06:00 Temperature 97.2 F L 97 F L Pulse Rate 85 85 67 Respiratory Rate 16 16 12 Blood Pressure 92/58 L 95/54 L Pulse Oximetry 100 100 100 09/21/19 08:47 09/21/19 14:00 Temperature 97.8 F Pulse Rate 72 72 Respiratory Rate 16 16 Blood Pressure 99/56 L Pulse Oximetry 97 97 Intake/Output Intake/Output: Intake & Output 09/18/19 09/19/19 09/20/19 09/21/19 23:59 23:59 23:59 23:59 Intake Total 1550 1292 2045 2801 Output Total 4900 575 350 Balance 1550 -3608 1470 2451 Meds/Results Medications: Active Medications Generic Name Dose Route Start Last Admin Trade Name Freq PRN Reason Stop Dose Admin Famotidine 20 mg 09/18/19 21:00 09/21/19 08:47 Pepcid Iv IV PUSH 20 mg Q12HR BHANU Administration Ceftriaxone Sodium/Dextrose 1 gm in 50 mls @ 100 mls/hr 09/19/19 21:00 09/20/19 23:14 Rocephin 1 Gm/D5w 50 Ml IVPB Infused Q24H BHANU Infusion Dextrose 1,000 mls @ 70 mls/hr 09/18/19 23:45 09/21/19 15:52 Dextrose 5% 1,000 Ml IV CONT 70 mls/hr .[id number] BHANU Administration Ondansetron HCl 4 mg 09/18/19 21:41 Zofran Inj IV PUSH Q4H PRN Nausea Rifaximin 550 mg 09/19/19 21:00 09/20/19 14:35 Xifaxan PO Not Given Q12HR BHANU Radiology Results: ITS Impressions Chest X-Ray 09/18/19 20:23 IMPRESSION: 1: NO ACUTE CARDIOPULMONARY DISEASE. Head CT 09/18/19 20:25 IMPRESSION: 1. No acute intracranial abnormality. 2: Right frontal and ethmoid sinusitis, unchanged, likely chronic. 3: Chronic age-rela
[2019-09-21] MEDS: LACTULOSE 20 GM/30 ML UDC FEED TUBE (20:22)
[2019-09-21 22:00] VITALS: BP 90/56; PULSE 113; RESP 22; TEMP 37; O2SAT 100
[2019-09-22] MEDS: DEXTROSE 5% 1,000 ML 1,000 ML 70 ML IV CONT (05:49)
[2019-09-22 05:51] VITALS: BP 106/69; PULSE 124; RESP 24; TEMP 36.8; O2SAT 100
--- NOTE | 2019-09-22 06:07 | PC.NURSE ---
BM small smears
[2019-09-22 06:44] LABS: Basophils Percent Auto 0.1 % (0.2-1.2); Eosinophils Absolute Auto 0.3 K/mm3 (0-0.3); Eosinophils Percent Auto 1.8 % (0-4.4); Hematocrit 22.3 % (42.0-52.0); Hemoglobin 7.5 g/dL (14.0-18.0); Immature Granulocyte Absolute 0.07 K/mm3 (0.00-0.031); Immature Granulocyte Percent A 0.5 % (0-0.5); Lymphocytes Absolute Auto 1.87 K/mm3 (0.9-3.2); Lymphocytes Percent Auto 13.2 % (18.3-44.2); Mean Corpuscular HGB Conc 33.6 g/dl (32-36); Mean Corpuscular Hemoglobin 32.1 pg (26-34); Mean Corpuscular Volume 95.3 fl (80-100); Mean Platelet Volume 11.5 fl (7.4-10.4); Monocytes Absolute Auto 1.7 K/mm3 (0.1-0.6); Monocytes Percent Auto 11.7 % (2.6-8.5); Neutrophils Absolute Auto 10.3 K/mm3 (1.3-6.7); Neutrophils Percent Auto 72.7 % (45.5-73.1); Platelet Count Result 143 k/mm3 (150-375); Red Blood Count 2.34 M/mm3 (4.6-6.20); Red Cell Distribution Width 17.2 % (11.5-14.5); White Blood Count 14.2 K/mm3 (4.5-10.0)
[2019-09-22 07:13] LABS: Albumin Level 3.1 g/dL (3.5-5.1); Blood Urea Nitrogen 23 mg/dL (9-20); Calcium 8.5 mg/dL (8.4-10.2); Carbon Dioxide 20 mmol/L (22-30); Chloride 105 mmol/L (98-107); Estimated CRCL calculation 47 ml/min; Estimated Glomerular Filt Rate 53; Glucose 118 mg/dL (75-110); Magnesium 1.5 mg/dL (1.6-2.3); Phosphorus 3.2 mg/dL (2.5-4.5); Sodium 141 mmol/L (137-145)
[2019-09-22] MEDS: LACTULOSE 20 GM/30 ML UDC FEED TUBE (08:17)
[2019-09-22] MEDS: MAGNESIUM SULF 2 GM/WATER 50ML 2 GM/50 ML BAG IVPB (08:17)
[2019-09-22] MEDS: FAMOTIDINE 20 MG/2 ML VIAL IV PUSH ×2 (08:17→21:37)
[2019-09-22 10:12] LABS: Glucose Point of Care 117 (65-105)
--- NOTE | 2019-09-22 10:14 | PM.IMPN ---
Progress Note: A&P Assessment and Plan (1) Spontaneous bacterial peritonitis: Code(s): K65.2 - Spontaneous bacterial peritonitis Status: Acute Assessment and Plan: Patient with paracentsis WBC of 12,800 on initial tap (only obtained 20ml) on . Repeat therapeutic tap with 94 WBC (4.5L removed) on 09/19/19. Unclear how WBC decreased so dramatically. Continue IV abx. (2) Encephalopathy: Code(s): G93.40 - Encephalopathy, unspecified Status: Acute Assessment and Plan: Suspect patient with acute on chronic encephalopathy. 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 Acute process related to the dehydration, ANALI and SBP . As below. (3) Acute renal failure: Qualifiers: Acute renal failure type: unspecified Qualified Code(s): N17.9 - Acute kidney failure, unspecified Code(s): N17.9 - Acute kidney failure, unspecified Status: Acute Assessment and Plan: Cr 2.0 on admission. With rehydration, pateitn's Cr down to 1.2 yesterday. Creatinine 1.7 this morning. Resume IV fluids since off tube feedings as maintenance therapy. Resume tube feedings when able. (4) Malnutrition: Qualifiers: Malnutrition type: protein-calorie malnutrition Protein-calorie malnutrition severity: moderate Qualified Code(s): E44.0 - Moderate protein-calorie malnutrition Code(s): E46 - Unspecified protein-calorie malnutrition Status: Chronic Assessment and Plan: No longer tolerating TF. Abd more distended. Will check obstructive series. If no obstruction, consider Reglan. Will give suppository if no perforation. Will need terminologist solution for his malnutrition. (5) Elevated lactic acid level: Code(s): R79.89 - Other specified abnormal findings of blood chemistry Status: Acute Assessment and Plan: Related to the SBP. Continue abx. repeat lactic acid level. (6) Ascites due to alcoholic cirrhosis: Code(s): K70.31 - Alcoholic cirrhosis of liver with ascites Status: Chronic Assessment and Plan: Diagnostic paracentesis in the ER to make the diagnosis of SBP. Patient had therapeutic paracentesis on 09/19/19 with removal of 4.5L. Continue to monitor. repeat paracentesis as needed. (7) Cirrhosis: Code(s): K74.60 - Unspecified cirrhosis of liver Status: Chronic Assessment and Plan: MELD score 22. discussed with family yesterday about the patient's poor prognosis. Patient remains a full code. Continue rifaximin and lactulose. These are on hold at the moment as we await the obstructive series. (8) Macrocytic anemia: Code(s): D53.9 - Nutritional anemia, unspecified Status: Chronic Assessment and Plan: Hgb low but stable in the 7-8 range since admission. Likely secondary to nutritional deficits and liver failure. Continue to monitor CBC. (9) Hypernatremia: Code(s): E87.0 - Hyperosmolality and hypernatremia Status: Acute Assessment and Plan: Sodium to 151 but trending down now to 141 today. Stop D5W. (10) Metabolic acidosis with increased anion gap and accumulation of organic acids: Code(s): E87.2 - Acidosis Status: Acute Assessment and Plan: AG 16 with Bicarb 17 on admission. AG worsened to 18 but back down to 16 today with bicarb of 20. Lactic acid normal on 09/19. Urine ketones negative. TF on hold. Check Lactic acid given the change (11) Leukocytosis: Qualifiers: Leukocytosis type: unspecified Qualified Code(s): D72.829 - Elevated white blood cell count, unspecified Code(s): D72.829 - Elevated white blood cell count, unspecified Status: Acute Assessment and Plan: Likely secondary to SBP. WBC 12K on admission but then normallized. WBC back up to 14K today possibly related to his clinical change. As above. (12) Catheter-associated urinary trac
--- NOTE | 2019-09-22 11:03 | WPDGIPROGNO ---
Progress Note: A&P Assessment and Plan (1) Sepsis: Qualifiers: Sepsis acute organ dysfunction status: unspecified Sepsis type: sepsis due to unspecified organism Qualified Code(s): A41.9 - Sepsis, unspecified organism Code(s): A41.9 - Sepsis, unspecified organism Status: Acute Assessment and Plan: he is sicker today more tachycardic and tachypneic, will repeat labs again including lactic acid and also obstructive series (more distended), get blood cultures and change antibiotic to zosyn (2) Spontaneous bacterial peritonitis: Code(s): K65.2 - Spontaneous bacterial peritonitis Status: Acute Assessment and Plan: may need to repeat a new diagnostic paracentesis if does not respond to medical rx will get another dose of iv albumin, change to zosyn poor prognosis (3) Cirrhosis: Qualifiers: Ascites presence: with ascites Hepatic cirrhosis type: alcoholic cirrhosis Qualified Code(s): K70.31 - Alcoholic cirrhosis of liver with ascites Code(s): K74.60 - Unspecified cirrhosis of liver Status: Acute Assessment and Plan: he is sicker today, worsening renal function again- will give albumin, add octreotide (4) ANALI (acute kidney injury): Code(s): N17.9 - Acute kidney failure, unspecified Status: Acute Assessment and Plan: worsening renal failure again, add octreotide (he may have HRS) iv albumin poor prognosis. (5) Hypernatremia: Code(s): E87.0 - Hyperosmolality and hypernatremia Status: Acute Assessment and Plan: better with medical rx, nutrition and fluids (6) Encephalopathy: Code(s): G93.40 - Encephalopathy, unspecified Status: Acute Assessment and Plan: multifactorial (sbp, anali and also sepsis), holding lactulose until we get obstructive series (7) Malnutrition: Qualifiers: Malnutrition type: protein-calorie malnutrition Protein-calorie malnutrition severity: moderate Qualified Code(s): E44.0 - Moderate protein-calorie malnutrition Code(s): E46 - Unspecified protein-calorie malnutrition Status: Chronic Assessment and Plan: continue with tube feeding by DHT Subjective Date/time seen: 09/22/19 11:03 Interval history: today he looks worse, not tolerating tube feeding and also more tachycardic Review of Systems Review of Systems: ROS unobtainable: unobtainable due to mental status Exam Const: General: in distress Other: he is sicker today, more tachypneic, cachectic HENMT: General nose exam: no epistaxis Other: DHT in place, tube feeding running. Neck: Neck: No no JVD Resp: Other: tachypneic ~ 24 Cardio: Rate: tachycardic (120's ) GI: Inspection: distended GI Palp: Yes Soft to palpation Auscultation: Hypoactive bowel sounds present Urinary Catheter: Urinary Catheter: patent and draining Skin: General skin exam: no erythema Neuro: Cognition (Neuro): abnormal cognition Other: he is more lethargic today Psych: Other: lethargic Objective Data Vital Signs Vital Signs: Vital Signs - 24 hr 09/21/19 14:00 09/21/19 22:00 09/22/19 05:51 Temperature 97.8 F 98.6 F 98.2 F Pulse Rate 72 113 H 124 H Respiratory Rate 16 22 H 24 H Blood Pressure 99/56 L 90/56 L 106/69 Pulse Oximetry 97 100 100 Intake/Output Intake/Output: Intake & Output 09/19/19 09/20/19 09/21/19 09/22/19 23:59 23:59 23:59 23:59 Intake Total 1292 2045 2851 1992 Output Total 4900 575 350 125 Balance -3608 1470 2501 1867 Meds/Results Medications: Active Medications Generic Name Dose Route Start Last Admin Trade Name Freq PRN Reason Stop Dose Admin Dextrose 12.5 gm 09/22/19 10:40 Dextrose 50% Syringe IV PUSH PRN PRN Hypoglycemia Protocol Famotidine 20 mg 09/18/19 21:00 09/22/19 08:17 Pepcid Iv IV PUSH 20 mg Q12HR BHANU Administration Glucagon 1 mg 09/22/19 10:40 Glucagon For Inj IM PRN PRN Hypogl
[2019-09-22 12:13] LABS: Hematocrit 22.8 % (42.0-52.0); Hemoglobin 7.4 g/dL (14.0-18.0); Mean Corpuscular HGB Conc 32.5 g/dl (32-36); Mean Corpuscular Hemoglobin 31.5 pg (26-34); Mean Platelet Volume 11.4 fl (7.4-10.4); Platelet Count Result 147 k/mm3 (150-375); Red Blood Count 2.35 M/mm3 (4.6-6.20); Red Cell Distribution Width 17.2 % (11.5-14.5); White Blood Count 14.3 K/mm3 (4.5-10.0)
[2019-09-22 12:26] LABS: Lactic Acid Reflex 1.1 mmol/L (0.7-2.1)
[2019-09-22 12:26] LABS: Ammonia 39 umol/L (9-30)
[2019-09-22 12:27] LABS: Blood Urea Nitrogen 25 mg/dL (9-20); Calcium 8.5 mg/dL (8.4-10.2); Carbon Dioxide 22 mmol/L (22-30); Chloride 106 mmol/L (98-107); Estimated CRCL calculation 45 ml/min; Estimated Glomerular Filt Rate 49; Glucose 105 mg/dL (75-110); Potassium 4.1 mmol/L (3.4-5.0); Sodium 140 mmol/L (137-145)
[2019-09-22] MEDS: THIAMINE HCL 200 MG/2 ML VIAL 100 MG IV PUSH (13:14)
[2019-09-22] MEDS: OCTREOTIDE ACETATE 0.1 MG/ML AMP SUB-Q ×2 (13:14→18:12)
[2019-09-22] MEDS: SODIUM CHLORIDE 0.9% IV 1,000 ML 70 ML IV CONT (13:16)
[2019-09-22] MEDS: ALBUMIN HUMAN 25% 25 GM/100 ML 200 ML IVPB (13:22)
[2019-09-22 14:00] VITALS: BP 105/71; PULSE 105; RESP 20; TEMP 36.5; O2SAT 100
[2019-09-22 14:11] LABS: Glucose Point of Care 110 (65-105)
[2019-09-22] MEDS: METOCLOPRAMIDE HCL INJ 10 MG/2 ML VIAL 5 MG IV PUSH ×2 (14:32→17:53)
[2019-09-22] MEDS: BISACODYL 10 MG SUPPOSITORY RECTAL (14:33)
[2019-09-22 18:29] LABS: Glucose Point of Care 126 (65-105)
[2019-09-22 20:35] VITALS: PULSE 100; RESP 20; O2SAT 100
[2019-09-22 21:26] VITALS: BP 107/77; PULSE 100; RESP 20; TEMP 37.3; O2SAT 100
[2019-09-23] VITALS (8 sets, daily range): BP systolic 90–117; BP diastolic 50–84; PULSE 90–110; RESP 16–22; TEMP 36.8–37.2; O2SAT 100
[2019-09-23] MEDS: METOCLOPRAMIDE HCL INJ 10 MG/2 ML VIAL 5 MG IV PUSH ×4 (00:10→17:38)
[2019-09-23 01:52] LABS: Glucose Point of Care 125 (65-105)
[2019-09-23] MEDS: SODIUM CHLORIDE 0.9% IV 1,000 ML 70 ML IV CONT (05:30)
[2019-09-23 05:40] LABS: Glucose Point of Care 122 (65-105)
[2019-09-23 05:44] LABS: Immature Platelet Fraction Pct 3.8 % (0.9-11.2); Mean Corpuscular Hemoglobin 32.4 pg (26-34); Mean Corpuscular Volume 95.2 fl (80-100); Mean Platelet Volume 11.3 fl (7.4-10.4); Platelet Count Result 119 k/mm3 (150-375); White Blood Count 10.9 K/mm3 (4.5-10.0)
[2019-09-23 05:47] LABS: INR 1.8; Prothrombin Time 20.7 Seconds (11.1-14.7)
[2019-09-23 05:57] LABS: Alanine Aminotransferase 21 U/L (4-50); Albumin Level 3.3 g/dL (3.5-5.1); Alkaline Phosphatase 156 U/L (38-126); Aspartate Amino Transferase 59 U/L (17-59); Bilirubin,Total 2.9 mg/dL (0.2-1.3); Blood Urea Nitrogen 24 mg/dL (9-20); Calcium 8.7 mg/dL (8.4-10.2); Carbon Dioxide 22 mmol/L (22-30); Chloride 107 mmol/L (98-107); Estimated CRCL calculation 50 ml/min; Estimated Glomerular Filt Rate 57; Glucose 127 mg/dL (75-110); Phosphorus 4.3 mg/dL (2.5-4.5); Potassium 3.8 mmol/L (3.4-5.0); Sodium 140 mmol/L (137-145)
[2019-09-23 06:10] LABS: Hemoglobin 6.8 g/dL (14.0-18.0)
[2019-09-23 09:09] LABS: Glucose Point of Care 118 (65-105)
[2019-09-23] MEDS: SODIUM CHLORIDE 0.9% IV 250 ML 30 ML IV CONT (10:15)
[2019-09-23] MEDS: LACTULOSE 20 GM/30 ML UDC FEED TUBE ×2 (10:15→17:36)
[2019-09-23] MEDS: FAMOTIDINE 20 MG/2 ML VIAL IV PUSH ×2 (10:15→21:49)
[2019-09-23] MEDS: THIAMINE HCL 200 MG/2 ML VIAL 100 MG IV PUSH (10:16)
[2019-09-23] MEDS: OCTREOTIDE ACETATE 0.1 MG/ML AMP SUB-Q ×3 (10:19→17:38)
--- NOTE | 2019-09-23 11:00 | PM.IMPN ---
Progress Note: A&P Assessment and Plan (1) Macrocytic anemia: Code(s): D53.9 - Nutritional anemia, unspecified Status: Chronic Assessment and Plan: Hgb low but stable in the 7-8 range since admission until this morning with Hgb 6.8. Could be related to IVF or from occult GI bleed. Patient at risk for GI bleed. Transfusion ordered. Check stool guaiac. Follow HH. Sandostatin ordered. Chronis anemia related to nutritional deficits and liver failure. (2) Spontaneous bacterial peritonitis: Code(s): K65.2 - Spontaneous bacterial peritonitis Status: Acute Assessment and Plan: Patient with paracentsis WBC of 12,800 on initial tap (only obtained 20ml) on 09/18/2019. Repeat therapeutic tap with 94 WBC (4.5L removed) on 09/19/19. Unclear how WBC decreased so dramatically. Abx changed to Zosyn yesterday. (3) Encephalopathy: Code(s): G93.40 - Encephalopathy, unspecified Status: Acute Assessment and Plan: Suspect patient with acute on chronic encephalopathy. 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 Acute process related to the dehydration, ANALI and SBP +/- GI bleed . As below. (4) Acute renal failure: Qualifiers: Acute renal failure type: unspecified Qualified Code(s): N17.9 - Acute kidney failure, unspecified Code(s): N17.9 - Acute kidney failure, unspecified Status: Acute Assessment and Plan: Cr 2.0 on admission. With rehydration, patient's Cr down to 1.2 on 09/21. Creatinine jumped up to 1.8 yesterday but better with the NS. Now 1.6 today. Continue IV fluids for now. Continue tube feedings (5) Malnutrition: Qualifiers: Malnutrition type: protein-calorie malnutrition Protein-calorie malnutrition severity: moderate Qualified Code(s): E44.0 - Moderate protein-calorie malnutrition Code(s): E46 - Unspecified protein-calorie malnutrition Status: Chronic Assessment and Plan: Tolerating TF. Abd still distended. Obst series showing no acute process. Reglan started. Advance lactulose. Will need mcfp solution for his malnutrition. (6) Elevated lactic acid level: Code(s): R79.89 - Other specified abnormal findings of blood chemistry Status: Acute Assessment and Plan: Related to the SBP. Repeat lactic acid level normal. Continue abx. (7) Ascites due to alcoholic cirrhosis: Code(s): K70.31 - Alcoholic cirrhosis of liver with ascites Status: Chronic Assessment and Plan: Diagnostic paracentesis in the ER to make the diagnosis of SBP. Patient had therapeutic paracentesis on 09/19/19 with removal of 4.5L. Continue to monitor. Repeat paracentesis as needed. (8) Cirrhosis: Qualifiers: Hepatic cirrhosis type: alcoholic cirrhosis Ascites presence: with ascites Qualified Code(s): K70.31 - Alcoholic cirrhosis of liver with ascites Code(s): K74.60 - Unspecified cirrhosis of liver Status: Chronic Assessment and Plan: MELD score 25 on admission. Multiple providers have discussed with family about the patient's poor prognosis. Patient remains a full code. Continue rifaximin. Advnace lactulose. (9) Hypernatremia: Code(s): E87.0 - Hyperosmolality and hypernatremia Status: Acute Assessment and Plan: Sodium to 151 but trending down now to 140 today with D5W. Off D5W now and just on NS since NPO. Wean off IVF as he tolerates TF. (10) Metabolic acidosis with increased anion gap and accumulation of organic acids: Code(s): E87.2 - Acidosis Status: Acute Assessment and Plan: AG 16 with Bicarb 17 on admission. AG worsened to 18 but back down to 11 today with bicarb of 22. Lactic acid normal on 09/22. Urine ketones negative. Resolving acidosis. (11) Leukocytosis: Qualifiers: Leukocytosis type: unspecified Qualified Code(s): D72.829 - E
--- NOTE | 2019-09-23 12:36 | WPDGIPROGNO ---
Progress Note: A&P Assessment and Plan (1) Sepsis: Qualifiers: Sepsis acute organ dysfunction status: unspecified Sepsis type: sepsis due to unspecified organism Qualified Code(s): A41.9 - Sepsis, unspecified organism Code(s): A41.9 - Sepsis, unspecified organism Status: Acute Assessment and Plan: on iv zosyn now, better than yesterday. (2) Spontaneous bacterial peritonitis: Code(s): K65.2 - Spontaneous bacterial peritonitis Status: Acute Assessment and Plan: on iv abx, also received iv albumin (3) Cirrhosis: Qualifiers: Ascites presence: with ascites Hepatic cirrhosis type: alcoholic cirrhosis Qualified Code(s): K70.31 - Alcoholic cirrhosis of liver with ascites Code(s): K74.60 - Unspecified cirrhosis of liver Status: Acute Assessment and Plan: meld score 22, poor prognosis continue with supportive care (4) ANALI (acute kidney injury): Code(s): N17.9 - Acute kidney failure, unspecified Status: Acute Assessment and Plan: creatinine better today, s/p iv albumin, also octreotide sq, no diuretics (5) Hypernatremia: Code(s): E87.0 - Hyperosmolality and hypernatremia Status: Acute Assessment and Plan: better with medical rx, nutrition and fluids (6) Encephalopathy: Code(s): G93.40 - Encephalopathy, unspecified Status: Acute Assessment and Plan: multifactorial (sbp, anali and also sepsis) (7) Malnutrition: Qualifiers: Malnutrition type: protein-calorie malnutrition Protein-calorie malnutrition severity: moderate Qualified Code(s): E44.0 - Moderate protein-calorie malnutrition Code(s): E46 - Unspecified protein-calorie malnutrition Status: Chronic Assessment and Plan: continue with tube feeding by [facility] (8) Anemia: Qualifiers: Anemia type: unspecified type Qualified Code(s): D64.9 - Anemia, unspecified Code(s): D64.9 - Anemia, unspecified Status: Acute Assessment and Plan: he has chronic anemia ~ hb 7.5-8.5, today 6.8 but no report of gib (few weeks ago EGD with banding of varices), continue to monitor. getting one unit of prbc Subjective Date/time seen: 09/23/19 12:36 Interval history: still lethargic but slightly better than yesterday, he is not tachycardic anymore and resumed tube feeding which is tolerating. Abd XR showed non-obstructive bowel. RN denies any bleeding (had yellow stool) but receiving now one unit of PRBC Review of Systems Review of Systems: ROS unobtainable: unobtainable due to mental status Exam Const: General: in distress Other: he is sicker today, more tachypneic, cachectic HENMT: General nose exam: no epistaxis Other: DHT in place, tube feeding running. Neck: Neck: No no JVD Resp: Auscultation: clear to auscultation bilaterally Cardio: Rate: regular rate GI: Inspection: distended GI Palp: Yes Soft to palpation, No Tenderness to palpation present (GI) and No Rigid due to palpation Percussion: Yes Fluid wave present Auscultation: normal bowel sounds Urinary Catheter: Urinary Catheter: patent and draining Skin: General skin exam: no erythema Neuro: Cognition (Neuro): abnormal cognition Other: still lethargic Psych: Other: lethargic Objective Data Vital Signs Vital Signs: Vital Signs - 24 hr 09/22/19 14:00 09/22/19 20:35 09/22/19 21:26 Temperature 97.7 F 99.1 F Pulse Rate 105 H 100 100 Respiratory Rate 20 20 20 Blood Pressure 105/71 107/77 Pulse Oximetry 100 100 100 09/23/19 04:24 09/23/19 09:54 09/23/19 10:10 Temperature 98.9 F 98.6 F 98.6 F Pulse Rate 97 90 96 Respiratory Rate 18 18 20 Blood Pressure 90/58 L 101/70 100/76 Pulse Oximetry 100 100 100 09/23/19 11:10 Temperature 98.5 F Pulse Rate 100 Respiratory Rate 22 H Blood Pressure 107/82 Pulse Oximetry 100 Intake/Output Intake/Output: Intake & Output 09/20/19 09/21/19
[2019-09-23] MEDS: BISACODYL 10 MG SUPPOSITORY RECTAL (12:51)
[2019-09-23 13:55] LABS: Glucose Point of Care 112 (65-105)
[2019-09-23 13:56] LABS: Hematocrit 25.5 % (42.0-52.0); Hemoglobin 8.4 g/dL (14.0-18.0)
[2019-09-23 17:29] LABS: Glucose Point of Care 115 (65-105)
[2019-09-23 18:18] LABS: Hematocrit 27.3 % (42.0-52.0); Hemoglobin 8.9 g/dL (14.0-18.0)
[2019-09-24] VITALS (8 sets, daily range): BP systolic 110–122; BP diastolic 73–81; PULSE 110–124; RESP 20–27; TEMP 36.9–38.2; O2SAT 96–100
[2019-09-24 00:21] LABS: Glucose Point of Care 123 (65-105)
[2019-09-24] MEDS: SODIUM CHLORIDE 0.9% IV 1,000 ML 70 ML IV CONT (02:22)
[2019-09-24] MEDS: METOCLOPRAMIDE HCL INJ 10 MG/2 ML VIAL 5 MG IV PUSH ×4 (02:22→17:38)
[2019-09-24 05:19] LABS: IFOB Positive Control Positive; Immunochemical Fecal Occult Bl Negative (N)
[2019-09-24 05:20] LABS: Hemoglobin 8.2 g/dL (14.0-18.0); Mean Corpuscular HGB Conc 32.8 g/dl (32-36); Mean Corpuscular Hemoglobin 31.2 pg (26-34); Mean Corpuscular Volume 95.1 fl (80-100); Mean Platelet Volume 11.3 fl (7.4-10.4); Platelet Count Result 146 k/mm3 (150-375); Red Blood Count 2.63 M/mm3 (4.6-6.20); Red Cell Distribution Width 18.1 % (11.5-14.5); White Blood Count 12.1 K/mm3 (4.5-10.0)
[2019-09-24 05:32] LABS: Alanine Aminotransferase 24 U/L (4-50); Albumin Level 3.3 g/dL (3.5-5.1); Alkaline Phosphatase 203 U/L (38-126); Aspartate Amino Transferase 79 U/L (17-59); Bilirubin,Total 2.9 mg/dL (0.2-1.3); Blood Urea Nitrogen 24 mg/dL (9-20); Calcium 8.6 mg/dL (8.4-10.2); Carbon Dioxide 21 mmol/L (22-30); Chloride 110 mmol/L (98-107); Estimated CRCL calculation 61 ml/min; Estimated Glomerular Filt Rate > 60; Glucose 131 mg/dL (75-110); Sodium 144 mmol/L (137-145)
[2019-09-24 06:44] LABS: Glucose Point of Care 128 (65-105)
[2019-09-24] MEDS: LACTULOSE 20 GM/30 ML UDC FEED TUBE ×2 (09:56→17:38)
[2019-09-24] MEDS: FAMOTIDINE 20 MG/2 ML VIAL IV PUSH ×2 (09:56→21:36)
[2019-09-24] MEDS: THIAMINE HCL 200 MG/2 ML VIAL 100 MG IV PUSH (09:56)
[2019-09-24] MEDS: OCTREOTIDE ACETATE 0.1 MG/ML AMP SUB-Q ×3 (10:19→17:41)
[2019-09-24 12:24] LABS: Glucose Point of Care 108 (65-105)
--- NOTE | 2019-09-24 13:05 | WPDGIPROGNO ---
Progress Note: A&P Assessment and Plan (1) Spontaneous bacterial peritonitis: Code(s): K65.2 - Spontaneous bacterial peritonitis Status: Acute Assessment and Plan: on iv abx (now zosyn), also received iv albumin (2) Sepsis: Qualifiers: Sepsis acute organ dysfunction status: unspecified Sepsis type: sepsis due to unspecified organism Qualified Code(s): A41.9 - Sepsis, unspecified organism Code(s): A41.9 - Sepsis, unspecified organism Status: Acute (3) Cirrhosis: Qualifiers: Hepatic cirrhosis type: alcoholic cirrhosis Ascites presence: with ascites Qualified Code(s): K70.31 - Alcoholic cirrhosis of liver with ascites Code(s): K74.60 - Unspecified cirrhosis of liver Status: Acute Assessment and Plan: meld score was 22, poor prognosis no major changes continue with supportive care (4) ANALI (acute kidney injury): Code(s): N17.9 - Acute kidney failure, unspecified Status: Acute Assessment and Plan: creatinine continue to improve, s/p iv albumin, also octreotide sq, no diuretics (5) Hypernatremia: Code(s): E87.0 - Hyperosmolality and hypernatremia Status: Acute Assessment and Plan: better with medical rx, nutrition and fluids (6) Encephalopathy: Code(s): G93.40 - Encephalopathy, unspecified Status: Acute Assessment and Plan: multifactorial (sbp, anali and also sepsis) (7) Malnutrition: Qualifiers: Malnutrition type: protein-calorie malnutrition Protein-calorie malnutrition severity: moderate Qualified Code(s): E44.0 - Moderate protein-calorie malnutrition Code(s): E46 - Unspecified protein-calorie malnutrition Status: Chronic Assessment and Plan: continue with tube feeding by DHT (8) Anemia: Qualifiers: Anemia type: unspecified type Qualified Code(s): D64.9 - Anemia, unspecified Code(s): D64.9 - Anemia, unspecified Status: Acute Assessment and Plan: he has chronic anemia and received one unit of prbc 09/23 no signs of bleeding Subjective Date/time seen: 09/24/19 13:05 Interval history: no major changes, still poorly responsive, tolerating tube feeding. No signs of bleeding. Exam Const: General: in distress Other: chronically ill appearing, tube feeding by DHT, cachectic HENMT: General nose exam: no epistaxis Other: DHT in place, tube feeding running. Dry mucus membranes Neck: Neck: No no JVD Resp: Auscultation: clear to auscultation bilaterally Cardio: Rate: regular rate GI: Inspection: distended GI Palp: Yes Soft to palpation, No Tenderness to palpation present (GI) and No Rigid due to palpation Percussion: Yes Fluid wave present Auscultation: normal bowel sounds Urinary Catheter: Urinary Catheter: patent and draining Skin: General skin exam: no erythema Neuro: Cognition (Neuro): abnormal cognition Other: still lethargic, no changes Psych: Other: lethargic Objective Data Vital Signs Vital Signs: Vital Signs - 24 hr 09/23/19 14:00 09/23/19 22:00 09/24/19 05:40 Temperature 98.3 F 98.6 F 99.6 F Pulse Rate 101 H 110 H 124 H Respiratory Rate 18 16 20 Blood Pressure 101/50 L 110/75 122/73 Pulse Oximetry 100 100 100 Intake/Output Intake/Output: Intake & Output 09/21/19 09/22/19 09/23/19 09/24/19 23:59 23:59 23:59 23:59 Intake Total 2851 2433 3704 1041 Output Total 350 275 650 Balance 2501 2159 3054 1041 Meds/Results Medications: Active Medications Generic Name Dose Route Start Last Admin Trade Name Freq PRN Reason Stop Dose Admin Dextrose 12.5 gm 09/22/19 10:40 Dextrose 50% Syringe IV PUSH PRN PRN Hypoglycemia Protocol Famotidine 20 mg 09/18/19 21:00 09/24/19 09:56 Pepcid Iv IV PUSH 20 mg Q12HR BHANU Administration Glucagon 1 mg 09/22/19 10:40 Glucagon For Inj IM PRN PRN Hypoglycemia Protocol Glucose 15 gm
--- NOTE | 2019-09-24 16:07 | PM.IMPN ---
Progress Note: A&P Assessment and Plan (1) Macrocytic anemia: Code(s): D53.9 - Nutritional anemia, unspecified Status: Chronic Assessment and Plan: Patient with a chronic anemia related to nutritional deficits and liver failure. Hgb low but stable in the 7-8 range since admission until 09/23/19 with Hgb 6.8. Could be related to IVF or from occult GI bleed. Patient at risk for GI bleed. Transfusion ordered and Hgb climbed into the 8 range; Hgb 8.2 today. Stool guaiac negative. Sandostatin ordered. (2) Spontaneous bacterial peritonitis: Code(s): K65.2 - Spontaneous bacterial peritonitis Status: Acute Assessment and Plan: Patient with paracentsis WBC of 12,800 on initial tap (only obtained 20ml) on 09/18/2019. Repeat therapeutic tap with 94 WBC (4.5L removed) on 09/19/19. Unclear how WBC decreased so dramatically. Initial BCx negative. Repeat BCx NGTD. Ascitic fluid cx negative. Still with fevers. Abx changed to Zosyn on 09/22/19. Monitor closely. Check influenza. Check MRSA nasal swab and consider adding Vanco. Treat funguria with diflucan. Move to IMU given his declining condition. Influenza negative, (3) Encephalopathy: Code(s): G93.40 - Encephalopathy, unspecified Status: Acute Assessment and Plan: Suspect patient with acute on chronic encephalopathy. 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 Acute process related to the dehydration, ANALI and SBP +/- GI bleed . More obtunded today. Could be related to the Reglan. Check CXR and ABG. Last ammonia level was 39 so will repeat. Ammonia 44. CXR showing hazy bibasilar airspace disease. ABG showing 7.48/. He is having BMs. May need another paracentesis. (4) Acute renal failure: Qualifiers: Acute renal failure type: unspecified Qualified Code(s): N17.9 - Acute kidney failure, unspecified Code(s): N17.9 - Acute kidney failure, unspecified Status: Acute Assessment and Plan: Cr 2.0 on admission. With rehydration, patient's Cr down to 1.2 on 09/21. Creatinine jumped up to 1.8 on 09/22 but better with the NS. Now 1.3 today. Stop IV fluids. Continue tube feedings (5) Malnutrition: Qualifiers: Malnutrition type: protein-calorie malnutrition Protein-calorie malnutrition severity: moderate Qualified Code(s): E44.0 - Moderate protein-calorie malnutrition Code(s): E46 - Unspecified protein-calorie malnutrition Status: Chronic Assessment and Plan: Tolerating TF and now at goal. Abd still distended. Obst series showing no acute process. Reglan started. Having BMs with increased lactulose. Will need ocean transportation intermediary solution for his malnutrition. Decrease Reglan slightly since this could be affecting his mental status. (6) Elevated lactic acid level: Code(s): R79.89 - Other specified abnormal findings of blood chemistry Status: Acute Assessment and Plan: Related to the SBP. Repeat lactic acid level normal. Continue abx. (7) Ascites due to alcoholic cirrhosis: Code(s): K70.31 - Alcoholic cirrhosis of liver with ascites Status: Chronic Assessment and Plan: Diagnostic paracentesis in the ER to make the diagnosis of SBP. Patient had therapeutic paracentesis on 09/19/19 with removal of 4.5L. Continue to monitor. A repeat paracentesis probably is needed. (8) Cirrhosis: Qualifiers: Ascites presence: with ascites Hepatic cirrhosis type: alcoholic cirrhosis Qualified Code(s): K70.31 - Alcoholic cirrhosis of liver with ascites Code(s): K74.60 - Unspecified cirrhosis of liver Status: Chronic Assessment and Plan: MELD score 25 on admission. Multiple providers have discussed with family about the patient's poor prognosis. Patient remains a full code. +BMs. Continue rifaximin and lactulose. salvage determiner prognosis poor. (9) Hypernatrem
[2019-09-24 17:34] LABS: Alveolar/Arterial O2 Gradient 42.6 mmHg; Base Excess ABG -1.2 mEq/l (+/-2.0); Fractional Inspired Oxygen 21 %; HCO3 ABG 21.8 mEq/l (22.0-26.0); Oxygen Content ABG 12.4 %vol (16.0-22.0); Oxygen Saturation ABG 95.5 % (95.0-100.0); PO2 ABG 71.2 mmHg (80.0-100.0); PO2 FiO2 Ratio Arterial Blood 3.39 %; Total Hemoglobin 9.4 g/dL (12.0-18.0); pH ABG 7.479 (7.350-7.450)
[2019-09-24 17:36] LABS: Device ROOM AIR; Modified Allen's Test Pass; Site Drawn RIGHT RADIAL
[2019-09-24 17:42] LABS: Glucose Point of Care 129 (65-105)
[2019-09-24 17:48] LABS: Ammonia 44 umol/L (9-30)
[2019-09-24 18:46] LABS: Influenza Control Positive
--- NOTE | 2019-09-24 20:05 | PC.NURSE ---
pt transferred to [facility] at 2004. placed on telemetry, belongings received. VS obtained.
--- NOTE | 2019-09-24 20:09 | PC.NURSE ---
This patient, Tonya Baumann, was transferred to [ IMU [id number]] on 09/24/19 at 2008. Personal belongings sent with patient. Belongings list checked 2and signed with receiving [ ]. Report given to [ ]. Appropriate documentation sent with patient.
[2019-09-24] MEDS: FLUCONAZOLE 100 MG/NACL 50 ML 100 MG/50 ML BTL 50 MG IVPB (21:32)
[2019-09-25] VITALS (12 sets, daily range): BP systolic 107–121; BP diastolic 74–80; PULSE 100–115; RESP 22–24; TEMP 36.1–37.3; O2SAT 100
[2019-09-25 00:13] LABS: Glucose Point of Care 112 (65-105)
[2019-09-25] MEDS: METOCLOPRAMIDE HCL INJ 10 MG/2 ML VIAL 5 MG IV PUSH ×3 (03:22→17:46)
[2019-09-25 05:00] LABS: Hematocrit 26.2 % (42.0-52.0); Hemoglobin 8.6 g/dL (14.0-18.0); Mean Corpuscular HGB Conc 32.8 g/dl (32-36); Mean Corpuscular Hemoglobin 31.4 pg (26-34); Mean Corpuscular Volume 95.6 fl (80-100); Mean Platelet Volume 10.8 fl (7.4-10.4); Platelet Count Result 147 k/mm3 (150-375); Red Blood Count 2.74 M/mm3 (4.6-6.20); Red Cell Distribution Width 17.6 % (11.5-14.5); White Blood Count 13.6 K/mm3 (4.5-10.0)
[2019-09-25 05:21] LABS: Alanine Aminotransferase 23 U/L (4-50); Albumin Level 3.3 g/dL (3.5-5.1); Alkaline Phosphatase 224 U/L (38-126); Aspartate Amino Transferase 67 U/L (17-59); Bilirubin,Total 2.9 mg/dL (0.2-1.3); Blood Urea Nitrogen 27 mg/dL (9-20); Calcium 8.6 mg/dL (8.4-10.2); Carbon Dioxide 22 mmol/L (22-30); Chloride 111 mmol/L (98-107); Estimated CRCL calculation 57 ml/min; Estimated Glomerular Filt Rate > 60; Glucose 141 mg/dL (75-110); Phosphorus 4.6 mg/dL (2.5-4.5); Potassium 4.3 mmol/L (3.4-5.0); Sodium 144 mmol/L (137-145)
[2019-09-25 06:56] LABS: Glucose Point of Care 129 (65-105)
[2019-09-25] MEDS: OCTREOTIDE ACETATE 0.1 MG/ML AMP SUB-Q ×3 (09:31→17:46)
[2019-09-25] MEDS: LACTULOSE 20 GM/30 ML UDC FEED TUBE ×2 (09:31→17:47)
[2019-09-25] MEDS: THIAMINE HCL 200 MG/2 ML VIAL 100 MG IV PUSH (09:31)
[2019-09-25] MEDS: FAMOTIDINE 20 MG/2 ML VIAL IV PUSH ×2 (09:32→20:17)
--- NOTE | 2019-09-25 10:29 | PM.IMPN ---
Progress Note: A&P Assessment and Plan (1) Encephalopathy: Code(s): G93.40 - Encephalopathy, unspecified Status: Acute Assessment and Plan: Suspect patient with acute on chronic encephalopathy. 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 Acute process related to the dehydration, ANALI and SBP +/- GI bleed. Not responsive. Was able to speak with patient's mother, Sangita Sherman, by phone this morning. Advised mother of poor prognosis given end-stage liver disease. Mother wishes for patient to remain full code and wants to continue aggressive treatment despite this information. Telemetry reviewed on 09/25/2019 with sinus tachycardia with heart rate in the 110s. Will move to medical floor as otherwise stable. (2) Spontaneous bacterial peritonitis: Code(s): K65.2 - Spontaneous bacterial peritonitis Status: Acute Assessment and Plan: Patient with paracentsis WBC of 12,800 on initial tap (only obtained 20ml) on 09/18/2019. Repeat therapeutic tap with 94 WBC (4.5L removed) on 09/19/19. Unclear how WBC decreased so dramatically. Initial and repeat blood cultures remain negative. Ascitic fluid culture negative. Remains on IV Zosyn. Guarded prognosis. (3) Macrocytic anemia: Code(s): D53.9 - Nutritional anemia, unspecified Status: Chronic Assessment and Plan: Patient with a chronic anemia related to nutritional deficits and liver failure. Transfuse 1 unit on 09/23/2019 hemoglobin 6.8 at that time. Stable at 8.6 today. Remains on octreotide. Appreciate help from GI. Will continue to monitor hemoglobin and hematocrit. Transfuse as needed. (4) Acute renal failure: Qualifiers: Acute renal failure type: unspecified Qualified Code(s): N17.9 - Acute kidney failure, unspecified Code(s): N17.9 - Acute kidney failure, unspecified Status: Acute Assessment and Plan: Creatinine back down to 1.40 today. Will continue to monitor with tube feedings in place. (5) Ascites due to alcoholic cirrhosis: Code(s): K70.31 - Alcoholic cirrhosis of liver with ascites Status: Chronic Assessment and Plan: Diagnostic paracentesis in the ER to make the diagnosis of SBP. Patient had therapeutic paracentesis on 09/19/19 with removal of 4.5L. GI following and appreciate input. May need eventual repeat paracentesis. MELD score 25 on admission. Mother re-advised of poor prognosis. Still full code. Rifaximin on hold. Continue lactulose. (6) Malnutrition: Qualifiers: Malnutrition type: protein-calorie malnutrition Protein-calorie malnutrition severity: moderate Qualified Code(s): E44.0 - Moderate protein-calorie malnutrition Code(s): E46 - Unspecified protein-calorie malnutrition Status: Chronic Assessment and Plan: Will continue tube feedings for now. Remains on IV Reglan. Will monitor (7) Catheter-associated urinary tract infection: Qualifiers: Encounter type: initial encounter Indwelling urinary catheter type: indwelling urethral catheter Qualified Code(s): T83.511A - Infection and inflammatory reaction due to indwelling urethral catheter, initial encounter; N39.0 - Urinary tract infection, site not specified Code(s): T83.511A - Infection and inflammatory reaction due to indwelling urethral catheter, initial encounter; N39.0 - Urinary tract infection, site not specified Status: Acute Assessment and Plan: Patient with chronic indwelling Jaram[place] placed on 08/30/19 for urine retention. [place] related to chronic bedrest. UA on admission consistent with UTI. Urine culture growing yeast. Will continue to treat as infection with Diflucan but likely contaminant or colonizer. (8) Elevated lactic acid level: Code(s): R79.89 - Other specified abnormal findings of blood chemistry Status: Acute Assessment and Plan: Related to the SBP. Repeat lactic acid lev
--- NOTE | 2019-09-25 12:48 | PCDIET ---
Nutrition Follow-Up Complete: Inadequate energy intake related to encephalopathy as evidenced by medical dx of malnutrition and pt's family report of low oral intake. Pt tolerance and acceptance of diet order when advanced Goal met. Pt is receiving and tolerating Jevity 1.5 at 60mls/hr, providing 1980kcals and 84g pro and 1003ml free water over 22 hrs. Additionally,receiving 30mls water flushes every 4hrs. Nutrition recommendation: Recommend continuation of Jevity 1.5 at 60mls/hr as tolerated. Last recorded weight is 68.3 kg. Bowel Motility: +BM2/24 Labs Reviewed:Cr(1.4), BUN(27), Alb(3.3), Na(144), Glu(141), P(4.6), AST(67), Cl(111) Meds Noted:xifaxan, lactulose, thiamin HCL, zofran, pepcid, Novolog Additional Notes: Noted AKF and Cr at 1.4. Family not present at time of visit. Discussed toleration with nurse, 0ml residuals found and recorded. Will continue to monitor labs and tolerance of TF. Will follow up T/F.
--- NOTE | 2019-09-25 13:14 | PCNSR ---
On 09/25/19, the student, Isa Henry, provided care and completed [facility] documentation on this patient. I have reviewed the student's documentation and agree with the findings.
[2019-09-25 13:22] LABS: Glucose Point of Care 111 (65-105)
--- NOTE | 2019-09-25 16:27 | WPDGIPROGNO ---
Progress Note: A&P Assessment and Plan (1) Spontaneous bacterial peritonitis: Code(s): K65.2 - Spontaneous bacterial peritonitis Status: Acute Assessment and Plan: on iv abx (now zosyn), also received iv albumin (2) Sepsis: Qualifiers: Sepsis acute organ dysfunction status: unspecified Sepsis type: sepsis due to unspecified organism Qualified Code(s): A41.9 - Sepsis, unspecified organism Code(s): A41.9 - Sepsis, unspecified organism Status: Acute (3) Cirrhosis: Qualifiers: Hepatic cirrhosis type: alcoholic cirrhosis Ascites presence: with ascites Qualified Code(s): K70.31 - Alcoholic cirrhosis of liver with ascites Code(s): K74.60 - Unspecified cirrhosis of liver Status: Acute Assessment and Plan: poor prognosis- condition basically unchanged despite support, nutrition and medical treatment. continue with supportive care (4) ANALI (acute kidney injury): Code(s): N17.9 - Acute kidney failure, unspecified Status: Acute Assessment and Plan: creatinine 1.4, s/p iv albumin, also octreotide sq, no diuretics (5) Hypernatremia: Code(s): E87.0 - Hyperosmolality and hypernatremia Status: Acute Assessment and Plan: better with medical rx, nutrition and fluids (6) Encephalopathy: Code(s): G93.40 - Encephalopathy, unspecified Status: Acute Assessment and Plan: multifactorial (sbp, anali and also sepsis) he is hardly interacting, very lethargic poor prognosis (7) Malnutrition: Qualifiers: Malnutrition type: protein-calorie malnutrition Protein-calorie malnutrition severity: moderate Qualified Code(s): E44.0 - Moderate protein-calorie malnutrition Code(s): E46 - Unspecified protein-calorie malnutrition Status: Chronic Assessment and Plan: continue with tube feeding by [facility] (8) Anemia: Qualifiers: Anemia type: unspecified type Qualified Code(s): D64.9 - Anemia, unspecified Code(s): D64.9 - Anemia, unspecified Status: Acute Assessment and Plan: he has chronic anemia and received one unit of prbc 09/23 no signs of bleeding, FOBT was negative. Subjective Date/time seen: 09/25/19 16:27 Interval history: no changes, tolerating TF by DHT, mental status unchanged Review of Systems Review of Systems: ROS unobtainable: unobtainable due to mental status Exam Const: General: in distress Other: chronically ill appearing, tube feeding by DHT, cachectic, unresponsive (unchanged status) HENMT: General nose exam: no epistaxis Other: DHT in place, tube feeding running. Dry mucus membranes Neck: Neck: No no JVD Resp: Auscultation: clear to auscultation bilaterally Cardio: Rate: regular rate GI: Inspection: distended GI Palp: Yes Soft to palpation, No Tenderness to palpation present (GI) and No Rigid due to palpation Percussion: Yes Fluid wave present (c/w ascites) Auscultation: normal bowel sounds Urinary Catheter: Urinary Catheter: patent and draining Skin: General skin exam: no erythema Neuro: Cognition (Neuro): abnormal cognition Other: still lethargic, no changes Psych: Other: lethargic Objective Data Vital Signs Vital Signs: Vital Signs - 24 hr 09/24/19 20:08 09/24/19 22:00 09/24/19 23:29 Temperature 98.7 F 98.4 F Pulse Rate 118 H 116 H 113 H Respiratory Rate 27 H 24 H Blood Pressure 110/74 115/80 Pulse Oximetry 100 100 09/25/19 00:00 09/25/19 02:00 09/25/19 04:00 Temperature 98.9 F Pulse Rate 115 H 110 H 109 H Respiratory Rate 22 H Blood Pressure 117/78 Pulse Oximetry 100 09/25/19 06:00 09/25/19 08:00 09/25/19 08:07 Temperature 96.9 F L Pulse Rate 100 107 H 107 H Respiratory Rate 22 H 22 H Blood Pressure 112/80 Pulse Oximetry 100 100 09/25/19 10:00 09/25/19 12:00 09/25/19 12:12 Temperature 98.6 F Pulse Rate 102 H 108 H 103 H Respiratory Rate 22 H 22 H Blood
[2019-09-25 17:44] LABS: Glucose Point of Care 127 (65-105)
[2019-09-25 18:05] LABS: Glucose Point of Care 113 (65-105)
--- NOTE | 2019-09-25 19:32 | PC.NURSE ---
This patient, Tonya Baumann, was received from [[facility] on 09/25/19 at 1930. Personal belongings list checked and signed. Patient/family oriented to unit policies and routines
[2019-09-25] MEDS: FLUCONAZOLE 100 MG/NACL 50 ML 100 MG/50 ML BTL 50 MG IVPB (22:29)
[2019-09-26] VITALS: BP 121/72; PULSE 127; RESP 26; TEMP 37.4; O2SAT 99
[2019-09-26 00:43] LABS: Glucose Point of Care 131 (65-105)
[2019-09-26] MEDS: METOCLOPRAMIDE HCL INJ 10 MG/2 ML VIAL 5 MG IV PUSH ×3 (02:55→17:39)
[2019-09-26 05:49] LABS: Basophils Absolute Auto 0.1 K/mm3 (0.0-0.1); Basophils Percent Auto 0.4 % (0.2-1.2); Eosinophils Absolute Auto 0.5 K/mm3 (0-0.3); Eosinophils Percent Auto 3.6 % (0-4.4); Hematocrit 27.6 % (42.0-52.0); Hemoglobin 8.7 g/dL (14.0-18.0); Immature Granulocyte Absolute 0.04 K/mm3 (0.00-0.031); Immature Granulocyte Percent A 0.3 % (0-0.5); Lymphocytes Absolute Auto 1.26 K/mm3 (0.9-3.2); Mean Corpuscular HGB Conc 31.5 g/dl (32-36); Mean Corpuscular Hemoglobin 31.3 pg (26-34); Mean Corpuscular Volume 99.3 fl (80-100); Mean Platelet Volume 11.3 fl (7.4-10.4); Monocytes Absolute Auto 1.7 K/mm3 (0.1-0.6); Monocytes Percent Auto 13.4 % (2.6-8.5); Neutrophils Absolute Auto 9.1 K/mm3 (1.3-6.7); Neutrophils Percent Auto 72.3 % (45.5-73.1); Platelet Count Result 158 k/mm3 (150-375); Red Blood Count 2.78 M/mm3 (4.6-6.20); Red Cell Distribution Width 17.9 % (11.5-14.5); White Blood Count 12.6 K/mm3 (4.5-10.0)
[2019-09-26 06:00] VITALS: BP 109/80; PULSE 125; RESP 26; TEMP 37; O2SAT 100
[2019-09-26 06:12] LABS: Alanine Aminotransferase 23 U/L (4-50); Albumin Level 3.2 g/dL (3.5-5.1); Alkaline Phosphatase 246 U/L (38-126); Aspartate Amino Transferase 76 U/L (17-59); Blood Urea Nitrogen 34 mg/dL (9-20); Calcium 8.4 mg/dL (8.4-10.2); Carbon Dioxide 20 mmol/L (22-30); Chloride 110 mmol/L (98-107); Estimated CRCL calculation 54 ml/min; Estimated Glomerular Filt Rate > 60; Glucose 134 mg/dL (75-110); Potassium 4.9 mmol/L (3.4-5.0); Sodium 144 mmol/L (137-145)
[2019-09-26 06:39] LABS: Glucose Point of Care 132 (65-105)
[2019-09-26] MEDS: FAMOTIDINE 20 MG/2 ML VIAL IV PUSH ×2 (09:21→20:57)
[2019-09-26] MEDS: LACTULOSE 20 GM/30 ML UDC FEED TUBE ×2 (09:21→17:39)
[2019-09-26] MEDS: THIAMINE HCL 200 MG/2 ML VIAL 100 MG IV PUSH (09:21)
[2019-09-26] MEDS: OCTREOTIDE ACETATE 0.1 MG/ML AMP SUB-Q ×3 (09:22→17:39)
--- NOTE | 2019-09-26 09:55 | PM.IMPN ---
Progress Note: A&P Assessment and Plan (1) Encephalopathy: Code(s): G93.40 - Encephalopathy, unspecified Status: Acute Assessment and Plan: Suspect patient with acute on chronic encephalopathy. 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 Acute process related to the dehydration, ANALI and SBP +/- GI bleed. Remains unresponsive. Was able to speak with patient's mother, Sangita Sherman, by phone yesterday morning (09/25/2019). Advised mother of poor prognosis given end-stage liver disease. Mother wishes for patient to remain full code and wants to continue aggressive treatment despite this information. Will continue supportive care at this point and monitor. Prognosis continues to remain poor. (2) Spontaneous bacterial peritonitis: Code(s): K65.2 - Spontaneous bacterial peritonitis Status: Acute Assessment and Plan: Patient with paracentsis WBC of 12,800 on initial tap (only obtained 20ml) on 09/18/2019. Repeat therapeutic tap with 94 WBC (4.5L removed) on 09/19/2019. Unclear how WBC decreased so dramatically. Initial and repeat blood cultures remain negative. Ascitic fluid culture negative. Remains on IV Zosyn. Guarded prognosis and will not repeat paracentesis at this time. (3) Macrocytic anemia: Code(s): D53.9 - Nutritional anemia, unspecified Status: Chronic Assessment and Plan: Patient with a chronic anemia related to nutritional deficits and liver failure. Transfuse 1 unit on 09/23/2019 hemoglobin 6.8 at that time. Hemoglobin now stable at 8.7 today. Remains on octreotide. Appreciate help from GI. Will continue to monitor hemoglobin and hematocrit. Transfuse as needed. (4) Acute renal failure: Qualifiers: Acute renal failure type: unspecified Qualified Code(s): N17.9 - Acute kidney failure, unspecified Code(s): N17.9 - Acute kidney failure, unspecified Status: Acute Assessment and Plan: Creatinine stable at 1.50 today. Will continue to monitor with tube feedings in place. (5) Ascites due to alcoholic cirrhosis: Code(s): K70.31 - Alcoholic cirrhosis of liver with ascites Status: Chronic Assessment and Plan: Diagnostic paracentesis in the ER to make the diagnosis of SBP. Patient had therapeutic paracentesis on 09/19/19 with removal of 4.5L. GI following and appreciate input. MELD score 25 on admission and remains elevated. Mother re-advised of poor prognosis. Still full code per mother. Rifaximin on hold. Continue lactulose. (6) Malnutrition: Qualifiers: Malnutrition type: protein-calorie malnutrition Protein-calorie malnutrition severity: moderate Qualified Code(s): E44.0 - Moderate protein-calorie malnutrition Code(s): E46 - Unspecified protein-calorie malnutrition Status: Chronic Assessment and Plan: Will continue tube feedings for now. Remains on IV Reglan. Will monitor (7) Catheter-associated urinary tract infection: Qualifiers: Indwelling urinary catheter type: indwelling urethral catheter Encounter type: initial encounter Qualified Code(s): T83.511A - Infection and inflammatory reaction due to indwelling urethral catheter, initial encounter; N39.0 - Urinary tract infection, site not specified Code(s): T83.511A - Infection and inflammatory reaction due to indwelling urethral catheter, initial encounter; N39.0 - Urinary tract infection, site not specified Status: Acute Assessment and Plan: Patient with chronic indwelling Jaramillo placed on 08/30/2019 for urine retention. [place] related to chronic bedrest. UA on admission consistent with UTI. Urine culture growing yeast. Will continue to treat as infection with Diflucan but likely contaminant or colonizer. (8) Elevated lactic acid level: Code(s): R79.89 - Other specified abnormal findings of blood chemistry Status: Acute Assessment and Plan: Rel
[2019-09-26 13:07] LABS: Glucose Point of Care 133 (65-105)
--- NOTE | 2019-09-26 13:29 | WPDGIPROGNO ---
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 unfortunately condition is unchanged (3) Sepsis: Qualifiers: Sepsis acute organ dysfunction status: unspecified Sepsis type: sepsis due to unspecified organism Qualified Code(s): A41.9 - Sepsis, unspecified organism Code(s): A41.9 - Sepsis, unspecified organism Status: Acute (4) Cirrhosis: Qualifiers: Ascites presence: with ascites Hepatic cirrhosis type: alcoholic cirrhosis Qualified Code(s): K70.31 - Alcoholic cirrhosis of liver with ascites Code(s): K74.60 - Unspecified cirrhosis of liver Status: Acute Assessment and Plan: poor prognosis- condition basically unchanged despite support, nutrition and medical treatment. continue with supportive care MELD ~ 22, high mortality (5) ANALI (acute kidney injury): Code(s): N17.9 - Acute kidney failure, unspecified Status: Acute Assessment and Plan: relatively stable now s/p iv albumin, also octreotide sq, no diuretics (6) Hypernatremia: Code(s): E87.0 - Hyperosmolality and hypernatremia Status: Acute Assessment and Plan: normal limits now (7) Malnutrition: Qualifiers: Malnutrition type: protein-calorie malnutrition Protein-calorie malnutrition severity: moderate Qualified Code(s): E44.0 - Moderate protein-calorie malnutrition Code(s): E46 - Unspecified protein-calorie malnutrition Status: Chronic Assessment and Plan: continue with tube feeding by DHT (8) Anemia: Qualifiers: Anemia type: unspecified type Qualified Code(s): D64.9 - Anemia, unspecified Code(s): D64.9 - Anemia, unspecified Status: Acute Assessment and Plan: he has chronic anemia and received one unit of prbc 09/23 no signs of bleeding, FOBT was negative. stable hb now Subjective Date/time seen: 09/26/19 13:29 Interval history: no acute changes, unfortunately patient condition is unchanged- still encephalopathic and quite lethargic, tolerating tube feeding by dht Review of Systems Review of Systems: ROS unobtainable: unobtainable due to mental condition and unobtainable due to mental status Exam Const: General: in distress Other: chronically ill appearing, tube feeding by DHT, cachectic, unresponsive (unchanged status) HENMT: General nose exam: no epistaxis Other: DHT in place, tube feeding running. Dry mucus membranes Neck: Neck: No no JVD Resp: Auscultation: clear to auscultation bilaterally Cardio: Rate: regular rate GI: Inspection: distended GI Palp: Yes Soft to palpation, No Tenderness to palpation present (GI) and No Rigid due to palpation Percussion: Yes Fluid wave present (c/w ascites) Auscultation: normal bowel sounds Urinary Catheter: Urinary Catheter: patent and draining Skin: General skin exam: no erythema Neuro: Cognition (Neuro): abnormal cognition Other: still lethargic, no changes Psych: Other: lethargic Objective Data Vital Signs Vital Signs: Vital Signs - 24 hr 09/25/19 14:00 09/25/19 17:58 09/25/19 19:25 Temperature 98.7 F 99.1 F Pulse Rate 108 H 114 H 114 H Respiratory Rate 22 H 24 H Blood Pressure 110/74 121/78 Pulse Oximetry 100 100 09/26/19 00:00 09/26/19 06:00 Temperature 99.3 F 98.6 F Pulse Rate 127 H 125 H Respiratory Rate 26 H 26 H Blood Pressure 121/72 109/80 Pulse Oximetry 99 100 Intake/Output Intake/Output: Intake & Output 09/23/19 09/24/19 09/25/19 09/26/19 23:59 23:59 23:59 23:59 Intake Total 4347 8182 1025 1789 Output Tota
[2019-09-26 14:00] VITALS: BP 114/84; PULSE 116; RESP 22; TEMP 37.9; O2SAT 100
[2019-09-26 18:05] LABS: Glucose Point of Care 124 (65-105)
[2019-09-26] MEDS: FLUCONAZOLE 100 MG/NACL 50 ML 100 MG/50 ML BTL 50 MG IVPB (20:55)
[2019-09-26 21:59] VITALS: BP 126/79; PULSE 132; RESP 30; TEMP 37.2; O2SAT 100
[2019-09-27] MEDS: METOCLOPRAMIDE HCL INJ 10 MG/2 ML VIAL 5 MG IV PUSH ×3 (01:51→17:59)
[2019-09-27 01:55] LABS: Glucose Point of Care 123 (65-105)
[2019-09-27 05:53] LABS: Hematocrit 24.6 % (42.0-52.0); Hemoglobin 7.9 g/dL (14.0-18.0); Mean Corpuscular HGB Conc 32.1 g/dl (32-36); Mean Corpuscular Hemoglobin 31.5 pg (26-34); Mean Platelet Volume 11.4 fl (7.4-10.4); Platelet Count Result 188 k/mm3 (150-375); Red Blood Count 2.51 M/mm3 (4.6-6.20); Red Cell Distribution Width 17.8 % (11.5-14.5); White Blood Count 16.3 K/mm3 (4.5-10.0)
[2019-09-27 06:06] LABS: Alanine Aminotransferase 25 U/L (4-50); Albumin Level 3.2 g/dL (3.5-5.1); Alkaline Phosphatase 235 U/L (38-126); Aspartate Amino Transferase 73 U/L (17-59); Bilirubin Direct 0.1 mg/dL (0-0.3); Bilirubin,Total 2.9 mg/dL (0.2-1.3); Blood Urea Nitrogen 38 mg/dL (9-20); Calcium 8.4 mg/dL (8.4-10.2); Carbon Dioxide 23 mmol/L (22-30); Chloride 110 mmol/L (98-107); Estimated CRCL calculation 50 ml/min; Estimated Glomerular Filt Rate 57; Glucose 134 mg/dL (75-110); INR 1.8; Potassium 5.1 mmol/L (3.4-5.0); Sodium 147 mmol/L (137-145)
[2019-09-27 06:26] VITALS: BP 125/75; PULSE 135; RESP 28; TEMP 38; O2SAT 97
[2019-09-27 06:48] LABS: Glucose Point of Care 126 (65-105)
[2019-09-27] MEDS: FAMOTIDINE 20 MG/2 ML VIAL IV PUSH ×2 (08:42→22:12)
[2019-09-27] MEDS: THIAMINE HCL 200 MG/2 ML VIAL 100 MG IV PUSH (08:42)
[2019-09-27] MEDS: LACTULOSE 20 GM/30 ML UDC FEED TUBE ×2 (08:42→17:59)
[2019-09-27] MEDS: OCTREOTIDE ACETATE 0.1 MG/ML AMP SUB-Q ×3 (08:43→18:00)
[2019-09-27 09:07] LABS: Glucose Point of Care 118 (65-105)
[2019-09-27 12:00] VITALS: BP 111/79; PULSE 121; RESP 24; TEMP 36.9; O2SAT 100
--- NOTE | 2019-09-27 12:12 | PM.IMPN ---
Progress Note: A&P Assessment and Plan (1) Encephalopathy: Code(s): G93.40 - Encephalopathy, unspecified Status: Acute Assessment and Plan: Acute on chronic encephalopathy. 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 Acute process related to the dehydration, ANALI and SBP +/- GI bleed. STAT chest x-ray ordered after I was able to examine patient with no significant changes. Patient remains on [employer] sponsored of as he has been for several days. I did speak with his mother, Sangita Sherman, on 09/25/2019. I once again spoke with his mother this morning reiterating poor prognosis with patient having end-stage liver disease. I explained all treatment at this time is not curative including previous paracenteses which have essentially been more comfort. Mother has previously expressed wish for patient to be full code but I recommended she reconsider as a do not feel he would survive a code situation given his end-stage disease. I did ask her to consider more comfort care at this point. I have also previously spoken with Comic Book Designer who also feels prognosis poor. Mother tells me she will be coming with family later today to see patient and rediscuss treatment plan. (2) Ascites due to alcoholic cirrhosis: Code(s): K70.31 - Alcoholic cirrhosis of liver with ascites Status: Chronic Assessment and Plan: Diagnostic paracentesis in the ER to make the diagnosis of SBP. Patient had therapeutic paracentesis on 09/19/2019 with removal of 4.5L. GI following and appreciate input. MELD score 25 on admission and remains elevated. Patient end-stage liver disease at this time. Rifaximin remains hold. Has continued receive lactulose. Mother and other family coming today to discuss further care. (3) Spontaneous bacterial peritonitis: Code(s): K65.2 - Spontaneous bacterial peritonitis Status: Acute Assessment and Plan: Patient with paracentsis WBC of 12,800 on initial tap (only obtained 20ml) on 09/18/2019. Repeat therapeutic tap with 94 WBC (4.5L removed) on 09/19/2019. Unclear how WBC decreased so dramatically. Initial and repeat blood cultures remain negative. Ascitic fluid culture negative. Remains on IV Zosyn. Guarded prognosis as noted above. Family to come today for further discussion regarding care. (4) Macrocytic anemia: Code(s): D53.9 - Nutritional anemia, unspecified Status: Chronic Assessment and Plan: Patient with a chronic anemia related to nutritional deficits and liver failure. Transfuse 1 unit on 09/23/2019 hemoglobin 6.8 at that time. Hemoglobin Slightly lower at 7.9 today. Was noted to have bleeding from poor dentition on last visit and apparently had some last night.. Remains on octreotide. Appreciate help from GI. Will continue to monitor hemoglobin and hematocrit. Transfuse as needed. (5) Acute renal failure: Qualifiers: Acute renal failure type: unspecified Qualified Code(s): N17.9 - Acute kidney failure, unspecified Code(s): N17.9 - Acute kidney failure, unspecified Status: Acute Assessment and Plan: Creatinine 1.60 today with slight increase over past few days. Will continue to monitor with tube feedings in place. (6) Malnutrition: Qualifiers: Malnutrition type: protein-calorie malnutrition Protein-calorie malnutrition severity: moderate Qualified Code(s): E44.0 - Moderate protein-calorie malnutrition Code(s): E46 - Unspecified protein-calorie malnutrition Status: Chronic Assessment and Plan: Will continue tube feedings for now. Remains on IV Reglan. Will monitor (7) Catheter-associated urinary tract infection: Qualifiers: Encounter type: initial encounter Indwelling urinary catheter type: indwelling urethral catheter Qualified Code(s): T83.511A - Infection and inflammatory reaction due to indwelling urethral catheter, initial encounter; N
[2019-09-27 13:27] LABS: Glucose Point of Care 132 (65-105)
--- NOTE | 2019-09-27 15:51 | WPDGIPROGNO ---
Progress Note: A&P Assessment and Plan (1) Spontaneous bacterial peritonitis: Code(s): K65.2 - Spontaneous bacterial peritonitis Status: Acute Assessment and Plan: on iv abx, also received iv albumin (2) Encephalopathy: Code(s): G93.40 - Encephalopathy, unspecified Status: Acute Assessment and Plan: multifactorial (sbp, anali and also sepsis) very lethargic chcf poor prognosis, MELD score 22 unfortunately condition is unchanged and family should consider comfort measures. Mother is coming later today to discuss with primary team. No meaningful change in his condition. (3) Sepsis: Qualifiers: Sepsis acute organ dysfunction status: unspecified Sepsis type: sepsis due to unspecified organism Qualified Code(s): A41.9 - Sepsis, unspecified organism Code(s): A41.9 - Sepsis, unspecified organism Status: Acute (4) Cirrhosis: Qualifiers: Hepatic cirrhosis type: alcoholic cirrhosis Ascites presence: with ascites Qualified Code(s): K70.31 - Alcoholic cirrhosis of liver with ascites Code(s): K74.60 - Unspecified cirrhosis of liver Status: Acute Assessment and Plan: poor prognosis- condition basically unchanged despite support, nutrition and medical treatment. continue with supportive care MELD ~ 22, high mortality (5) ANALI (acute kidney injury): Code(s): N17.9 - Acute kidney failure, unspecified Status: Acute (6) Hypernatremia: Code(s): E87.0 - Hyperosmolality and hypernatremia Status: Acute (7) Malnutrition: Qualifiers: Malnutrition type: protein-calorie malnutrition Protein-calorie malnutrition severity: moderate Qualified Code(s): E44.0 - Moderate protein-calorie malnutrition Code(s): E46 - Unspecified protein-calorie malnutrition Status: Chronic Assessment and Plan: continue with tube feeding by [facility] (8) Anemia: Qualifiers: Anemia type: unspecified type Qualified Code(s): D64.9 - Anemia, unspecified Code(s): D64.9 - Anemia, unspecified Status: Acute Assessment and Plan: he has chronic anemia and received one unit of prbc 09/23 no signs of bleeding, FOBT was negative. stable hb now Subjective Date/time seen: 09/27/19 15:51 Interval history: RN reports that had bleeding from mouth (looks quite dry) and was more tachypneic earlier. Still quite lethargic Review of Systems Review of Systems: ROS unobtainable: unobtainable due to mental status Exam Const: General: in distress Other: chronically ill appearing, tube feeding by DHT, cachectic, unresponsive (unchanged status) HENMT: General nose exam: no epistaxis Other: DHT in place, tube feeding running. Dry mucus membranes Neck: Neck: No no JVD Resp: Auscultation: clear to auscultation bilaterally Cardio: Rate: regular rate GI: Inspection: distended GI Palp: Yes Soft to palpation, No Tenderness to palpation present (GI) and No Rigid due to palpation Percussion: Yes Fluid wave present (c/w ascites) Auscultation: normal bowel sounds Urinary Catheter: Urinary Catheter: patent and draining Skin: General skin exam: no erythema Neuro: Cognition (Neuro): abnormal cognition Other: still lethargic, no changes- unresponsive Psych: Other: lethargic Objective Data Vital Signs Vital Signs: Vital Signs - 24 hr 09/26/19 21:59 09/27/19 06:26 09/27/19 12:00 Temperature 98.9 F 100.4 F H 98.4 F Pulse Rate 132 H 135 H 121 H Respiratory Rate 30 H 28 H 24 H Blood Pressure 126/79 125/75 111/79 Pulse Oximetry 100 97 100 Intake/Output Intake/Output: Intake & Output 09/24/19 09/25/19 09/26/19 09/27/19 23:59 23:59 23:59 23:59 Intake Total 3124 1028 2934 150 Output Total 300 450 700 350 Balance 2824 578 2234 -200 Meds/Results Medications: Active Medications Generic Name Dose Route Start Last Admin Trade Name Freq PRN Reason Stop Dose Admin Dextrose 12.5 g
[2019-09-27 18:18] LABS: Glucose Point of Care 119 (65-105)
[2019-09-27 20:00] VITALS: PULSE 132
[2019-09-27 21:06] VITALS: BP 118/81; PULSE 126; RESP 28; TEMP 36.6; O2SAT 100
[2019-09-27] MEDS: FLUCONAZOLE 100 MG/NACL 50 ML 100 MG/50 ML BTL 50 MG IVPB (22:12)
[2019-09-28] VITALS (8 sets, daily range): BP systolic 120–121; BP diastolic 78–88; PULSE 107–125; RESP 16–20; TEMP 36.3–36.8; O2SAT 100
[2019-09-28 01:00] LABS: Glucose Point of Care 125 (65-105)
[2019-09-28] MEDS: METOCLOPRAMIDE HCL INJ 10 MG/2 ML VIAL 5 MG IV PUSH ×3 (02:55→17:38)
[2019-09-28 06:08] LABS: Hematocrit 24.6 % (42.0-52.0); Hemoglobin 7.7 g/dL (14.0-18.0); Mean Corpuscular HGB Conc 31.3 g/dl (32-36); Mean Corpuscular Hemoglobin 31.2 pg (26-34); Mean Corpuscular Volume 99.6 fl (80-100); Mean Platelet Volume 11.8 fl (7.4-10.4); Platelet Count Result 200 k/mm3 (150-375); Red Blood Count 2.47 M/mm3 (4.6-6.20); Red Cell Distribution Width 17.8 % (11.5-14.5); White Blood Count 15.9 K/mm3 (4.5-10.0)
[2019-09-28 06:25] LABS: Alanine Aminotransferase 28 U/L (4-50); Albumin Level 3.2 g/dL (3.5-5.1); Alkaline Phosphatase 257 U/L (38-126); Aspartate Amino Transferase 74 U/L (17-59); Bilirubin,Total 2.7 mg/dL (0.2-1.3); Blood Urea Nitrogen 42 mg/dL (9-20); Calcium 8.5 mg/dL (8.4-10.2); Carbon Dioxide 25 mmol/L (22-30); Chloride 112 mmol/L (98-107); Estimated CRCL calculation 50 ml/min; Estimated Glomerular Filt Rate 57; Glucose 129 mg/dL (75-110); Magnesium 2.3 mg/dL (1.6-2.3); Potassium 5.1 mmol/L (3.4-5.0); Sodium 149 mmol/L (137-145)
--- NOTE | 2019-09-28 07:49 | PM.IMPN ---
Progress Note: A&P Assessment and Plan (1) Encephalopathy: Code(s): G93.40 - Encephalopathy, unspecified Status: Acute Assessment and Plan: Acute on chronic encephalopathy. 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 Acute component related to dehydration, ANALI, SBP and possible GI bleed. Per history and physical from August 26, 2019, mother aware of history of liver issues and pancreatitis at that time. I had long discussion with his mother, Sangita Sherman, along with 3 other family members last evening at bedside with patient's nurse in the room regarding patient's end-stage alcoholic cirrhosis for which there is no cure at this point. After long discussion, mother wishes patient to remain full code. Mother where patient is not expected to survive his condition and will most likely not survive a code situation. Appreciate input from senior unix administrator who also agrees with poor prognosis and no further curative treatment available. Plan for therapeutic paracentesis today in case this provides any relief. Will continue to monitor. Remains on telemetry which was reviewed on 09/28/2019 with sinus tachycardia. Heart rate at times up to 120s. (2) Ascites due to alcoholic cirrhosis: Code(s): K70.31 - Alcoholic cirrhosis of liver with ascites Status: Chronic Assessment and Plan: Diagnostic paracentesis in the ER to make the diagnosis of SBP. Patient had therapeutic paracentesis on 09/19/2019 with removal of 4.5L. GI following and appreciate input. MELD score 25 on admission and remains elevated. Patient end-stage liver disease at this time. Rifaximin remains hold. Has continued to receive lactulose. Will repeat therapeutic paracentesis today while continuing other treatments. Prognosis guarded. (3) Spontaneous bacterial peritonitis: Code(s): K65.2 - Spontaneous bacterial peritonitis Status: Acute Assessment and Plan: Patient with paracentsis WBC of 12,800 on initial tap (only obtained 20ml) on 09/18/2019. Repeat therapeutic tap with 94 WBC (4.5L removed) on 09/19/2019. Unclear how WBC decreased so dramatically. Initial and repeat blood cultures remain negative. Ascitic fluid culture negative. Remains on IV Zosyn. Guarded prognosis as noted above. (4) Macrocytic anemia: Code(s): D53.9 - Nutritional anemia, unspecified Status: Chronic Assessment and Plan: Patient with a chronic anemia related to nutritional deficits and liver failure. Transfuse 1 unit on 09/23/2019 hemoglobin 6.8 at that time. Hemoglobin has been drifting down at 7.7 today. Was noted to have bleeding from poor dentition on last visit and apparently had some 2 nights ago. Remains on octreotide. Appreciate help from GI. Will continue to monitor hemoglobin and hematocrit. Transfuse as needed. (5) Acute renal failure: Qualifiers: Acute renal failure type: unspecified Qualified Code(s): N17.9 - Acute kidney failure, unspecified Code(s): N17.9 - Acute kidney failure, unspecified Status: Acute Assessment and Plan: Creatinine unchanged at 1.60 today. Will continue to monitor. (6) Malnutrition: Qualifiers: Malnutrition type: protein-calorie malnutrition Protein-calorie malnutrition severity: moderate Qualified Code(s): E44.0 - Moderate protein-calorie malnutrition Code(s): E46 - Unspecified protein-calorie malnutrition Status: Chronic Assessment and Plan: Will continue tube feedings for now. Remains on IV Reglan. With sodium increasing, will adjust water flushes. Tube feedings will be on hold for paracentesis. Will monitor (7) Catheter-associated urinary tract infection: Qualifiers: Indwelling urinary catheter type: indwelling urethral catheter Encounter type: initial encounter Qualified Code(s): T83.511A - Infection and inflammatory reaction due to indwelling urethral catheter, initial enco
[2019-09-28] MEDS: OCTREOTIDE ACETATE 0.1 MG/ML AMP SUB-Q ×3 (09:25→17:39)
[2019-09-28] MEDS: THIAMINE HCL 200 MG/2 ML VIAL 100 MG IV PUSH (09:26)
[2019-09-28] MEDS: FAMOTIDINE 20 MG/2 ML VIAL IV PUSH (09:26)
[2019-09-28 10:17] LABS: Glucose Point of Care 131 (65-105)
--- NOTE | 2019-09-28 10:45 | PCDIET ---
Nutrition Follow-Up Complete: Inadequate energy intake related to encephalopathy as evidenced by medical dx of malnutrition and pt's family report of low oral intake. Pt tolerance and acceptance of diet order when advanced Goal met. Pt is tolerating feedings at goal rate of 60mls. Feedings held at this time for paracentesis this morning; were stopped at 7:40am. Nutrition recommendation: Recommend re-initiation of feedings post procedure, once medically appropriate. Recommend weight post-paracentesis be recorded to better asses any weight loss/gain. As electrolyte levels have increased, recommend increase of water flushes to 60mls Q4, if medically appropriate. Last recorded weight is 68.3 kg. Bowel Motility:Diarrhea, +BM 09/28 Labs Reviewed:Alb(3.2), Na(149), K(5.1), GFR(57), BUN(42), Cr(1.6), Glu(129), Bilirubin(2.7), AST(74), Hgb(7.7), Hct(24.6) Meds Noted:Thiamine, Pepcid, Reglan Additional Notes: Discussed pt's status with nurse. States pt has been receiving continuous EN at goal rate with no residuals. Nurse stated she held feedings for scheduled paracentesis at 11am today and will resume once appropriate. Nurse mentioned doctor was wanting to potentially increase water flushes. Agree with this. Noted pt experiencing diarrhea and lactulose held. Noted IV fluids held. Will monitor labs. Will follow up T/F
--- NOTE | 2019-09-28 10:50 | PC.NURSE ---
Patient to US per stretcher.
--- NOTE | 2019-09-28 11:41 | PC.NURSE ---
Patient returned from US per stretcher.
[2019-09-28 12:42] LABS: Glucose Point of Care 83 (65-105)
--- NOTE | 2019-09-28 14:02 | PCNSR ---
On 09/28/19, the student, Isa Henry, provided care and completed [facility] documentation on this patient. I have reviewed the student's documentation and agree with the findings.
[2019-09-28] MEDS: LACTULOSE 20 GM/30 ML UDC FEED TUBE (17:38)
[2019-09-28 17:59] LABS: Glucose Point of Care 115 (65-105)
--- NOTE | 2019-09-28 18:32 | PM.TDS ---
Transfer Discharge Sum: Prov Provider Date of admission: 09/20/19 16:02 Primary care physician: UNKNOWN,DOCTOR Admitting clinician: Bartolo Thornton MD Attending physician on admission: Mabel Medina Consults: 09/19/19 Consult to Dietitian Routine Reason for Consult:: TO START TUBE FEEDS KEVIN 09/20 Consult to Dietitian Routine Reason for Consult:: patient will need feeding after DHT placement 09/19/19 06:06 Consult to Physician Routine Comment: 08/19 DR. SEWELL NOTIFIED @ 1020 (,) Consulting Provider: Kimo Sewell director call/MD group to consult: Gastroenterology Reason for consultation: Decompensated Cirrhosis Has provider been notified: Yes Attending physician on discharge: Antonia Bueno Discharging clinician: Antonia Bueno Anticipated date of transfer: 09/28/19 Receiving physician/facility: Dr. Wagner, internal medicine/ Dr. Altamirano, hepatology [facility] DS: Diagnosis Admitting Diagnosis Admitting Diagnosis: Spontaneous bacterial peritonitis Discharge Diagnosis (1) Encephalopathy: Code(s): G93.40 - Encephalopathy, unspecified Status: Acute (2) Ascites due to alcoholic cirrhosis: Code(s): K70.31 - Alcoholic cirrhosis of liver with ascites Status: Chronic (3) Spontaneous bacterial peritonitis: Code(s): K65.2 - Spontaneous bacterial peritonitis Status: Acute (4) Macrocytic anemia: Code(s): D53.9 - Nutritional anemia, unspecified Status: Chronic (5) Acute renal failure: Qualifiers: Acute renal failure type: unspecified Qualified Code(s): N17.9 - Acute kidney failure, unspecified Code(s): N17.9 - Acute kidney failure, unspecified Status: Acute (6) Malnutrition: Qualifiers: Malnutrition type: protein-calorie malnutrition Protein-calorie malnutrition severity: moderate Qualified Code(s): E44.0 - Moderate protein-calorie malnutrition Code(s): E46 - Unspecified protein-calorie malnutrition Status: Chronic (7) Catheter-associated urinary tract infection: Qualifiers: Encounter type: initial encounter Indwelling urinary catheter type: indwelling urethral catheter Qualified Code(s): T83.511A - Infection and inflammatory reaction due to indwelling urethral catheter, initial encounter; N39.0 - Urinary tract infection, site not specified Code(s): T83.511A - Infection and inflammatory reaction due to indwelling urethral catheter, initial encounter; N39.0 - Urinary tract infection, site not specified Status: Acute (8) Hypernatremia: Code(s): E87.0 - Hyperosmolality and hypernatremia Status: Acute (9) Elevated lactic acid level: Code(s): R79.89 - Other specified abnormal findings of blood chemistry Status: Acute (10) Metabolic acidosis with increased anion gap and accumulation of organic acids: Code(s): E87.2 - Acidosis Status: Acute (11) Leukocytosis: Qualifiers: Leukocytosis type: unspecified Qualified Code(s): D72.829 - Elevated white blood cell count, unspecified Code(s): D72.829 - Elevated white blood cell count, unspecified Status: Acute Transfer Discharge Sum: Med Medications Active and Home Medications: Home Medications folic acid 1 mg PO DAILY #30 tablet 09/08/19 [Rx Confirmed 09/18/19] furosemide 10 mg PO DAILY #30 tablet 09/08/19 [Rx Confirmed 09/18/19] megestrol 800 mg PO QAM #200 ml 09/08/19 [Rx Confirmed 09/18/19] pantoprazole 40 mg PO Q12HR #60 tablet 09/08/19 [Rx Confirmed 09/18/19] rifaximin [Xifaxan] 550 mg PO Q12HR #60 tablet 09/08/19 [Rx Confirmed 09/18/19] thiamine HCl (vitamin B1) [Vitamin B-1] 100 mg PO QAM #30 tablet 09/08/19 [Rx Confirmed 09/18/19] zinc sulfate 220 mg PO QAM #30 cap 09/08/19 [Rx Confirmed 09/18/19] lactulose 20 g PO BID 09/18/19 [History Confirmed 09/18/19] sodium bicarbonate 650 mg PO DAILY 09/18/19 [History Confi
== END 2019-09-28 20:35 | disposition short-term general hospital (02) | DRG 280 ==
LOC: ANHED 19:21 → ANH3MED 23:09 → ANHIMU 10-02 13:00
PROVIDERS: Family Medicine; Internal Medicine; Internal Medicine Gastroenterology; Admitting Provider Family Medicine; Emergency Provider Emergency Medicine; Visit Provider Hospitalist
DX: K70.31 Alcoholic cirrhosis of liver with ascites (principal); N17.9 Acute kidney failure, unspecified; I85.00 Esophageal varices without bleeding; G93.49 Other encephalopathy; D53.9 Nutritional anemia, unspecified; E44.0 Moderate protein-calorie malnutrition; Z68.21 Body mass index [BMI] 21.0-21.9, adult; T83.511A Infection and inflammatory reaction due to indwelling urethral catheter, initial encounter; N39.0 Urinary tract infection, site not specified; E87.0 Hyperosmolality and hypernatremia; E87.2 Acidosis; D72.829 Elevated white blood cell count, unspecified; F10.20 Alcohol dependence, uncomplicated; E87.1 Hypo-osmolality and hyponatremia; E83.42 Hypomagnesemia; E86.0 Dehydration
CPT/HCPCS: 36415; 36430; 36600; 43752; 49082; 49083; 70450; 71045; 74018; 74019; 80048; 80053; 80069; 80076; 81001; 82140; 82274; 82607; 82746; 82805; 82945; 83605; 83615; 83690; 83735; 84100; 84157; 84439; 84443; 84480; 85014; 85018; 85025; 85027; 85055; 85610; 86850; 86900; 86901; 86923; 87040; 87070; 87075; 87081; 87086; 87205; 87804; 88104; 88108; 88305; 88311; 89051; 93005; 96361; 96365; 96366; 96367; 96368; 96375; 99285; A9270; G0378; G0379; J0696; J1450; J2354; J2543; J2765; J3411; J3475; J7030; J7050; J7070; J7120; P9016; P9047